=== PATIENT | female | born 1960 | race Caucasian/White ===

== ENCOUNTER 2019-07-08 15:46 | Inpatient (IN) ==
[2019-07-08] MEDS ORDERED: NYSTATIN POWDER 15GM BTL EXT PRN (22:11)
[2019-07-08] MEDS ORDERED: ONDANSETRON INJ 2 MG/ML 2 ML VIAL IV PRN (22:30)
[2019-07-08] MEDS ORDERED: ACETAMINOPHEN 325 MG TAB PO PRN (22:30)
[2019-07-08] MEDS ORDERED: POLYETHYLENE (MIRALAX) 17 GM PACK PO PRN (22:30)
--- NOTE | 2019-07-08 22:33 | History & Physical Report ---
Date of Service July 08, 2019 Assessment & Plan (1) ESRD (end stage renal disease): (2) DM2 (diabetes mellitus, type 2): (3) Seizure disorder: (4) HTN (hypertension): (5) Respiratory failure: (6) GERD (gastroesophageal reflux disease): (7) AMS (altered mental status): 58-year-old female with history of seizure, DM 2, CKD on dialysis, hypertension, coronary artery disease, respiratory failure, history of DVTs and bilateral BKA's, GERD, peptic ulcer disease presents with altered mental status from outside hospital. Altered mental status History of seizures Concern for possible seizure and postictal state versus stroke versus normal pressure hydrocephalus Afebrile, no WBC elevation Labs and diagnostic work-up at outside hospital on 07/08/19 at 13:55 CT at OSH: 07/08/19 overall appearance of ventricles and periventricular white matter raises question of normal pressure hydrocephalus however may also be seen in chronic microangiopathic disease Chest x-ray at OSH: 07/08/19 chronic increased interstitial markings, no acute abnormality EKG: Normal sinus rhythm 77, QTc [address] or T wave changes Troponin 0.02 Electrolytes within normal limits, BUN/creatinine 11/2.7 Continue home Leviteracetam 1000mg BID Hold home oxycodoneacetaminophen, meclizine, levocetirizine, gabapentin and fluoxetine in the setting of altered mental status Neurology consulted End-stage renal disease on hemodialysis BUN/creatinine 11/2.7 status post 2 hours of hemodialysis today Electrolyte is within normal limits Appears euvolemic on exam On hemodialysis Monday Continue sucroferric oxyhydroxide Continue to monitor BMP Nephrology consulted Respiratory failure Unsure of diagnosis none stated on records from outside hospital On 2 L O2 DM2 Check a.m. A1c Hold home Humalog and started on sliding scale insulin NovoLog Hypertension/CAD/history of DVT Continue home amlodipine, metoprolol, atorvastatin and warfarin INR 1.7 on 07/03 - check AM INR GERD/history of peptic ulcer disease Continue home PPI, and metoclopramide On Zofran as needed for nausea/vomiting Hx of breast cancer L mastectomy Continue home anastrazole FEN/GI: N.p.o. given altered mental status DVT prophylaxis: Warfarin Disposition MedSurg with telemetry Code: Full per prior records unable to verify due to mental status History of Present Illness Chief Complaint: Altered mental status Primary Care Provider: NO PCP 58-year-old female with history of seizure, DM 2, CKD on dialysis, hypertension, coronary artery disease, respiratory failure, history of DVTs and bilateral BKA's, GERD, peptic ulcer disease presents with altered mental status from outside hospital. Per records reviewed, had reported that patient was not her usual self this morning. While at dialysis 2 hours into her 4-hour session she was noted to be altered and transferred to the ED. There was questionable concern for seizure and possible postictal stage. Outside hospital had spoke to Dr. Mcnulty who is her heater operator helper and patient was transferred to [facility]. When evaluated this evening patient responds to her name but is unable to state name, or date of . When asked about place and time she stares into space. She is however following some commands and I was able to do her portion of neuro exam with her. She also answers no to pain and review of system elements. She denied any fever, chills, headache, lightheadedness, chest pain, shortness of breath, abdominal pain, diarrhea, constipation, hematochezia, melena, hematuria, dysuria, increased urinary frequency. She reports yes to producing some urine There is no family member at this time. Phone number listed was contacted however no response was obtained. Allergies Allergy/AdvReac Type Severity Reaction Status Date / Time Aminoglycosides Allergy Unknown Verified 07/08/19 22:17 ciprofloxacin Allergy Unknown Verified 07/08/19 22:17 doxycycline Allergy Unknown Verified 07/08/19 22:17 ertapenem Allergy Unknown Verified 07/08/19 22:17 gentamicin Allergy Unknown Verified 07/08/19 22:17 morphine Allergy Unknown Verified 07/08/19 22:17 quinacrine Allergy Unknown Verified 07/08/19 22:17 Quinolones Allergy Unknown Verified 07/08/19 22:17 Tetracyclines Allergy Unknown Verified 07/08/19 22:17 tramadol Allergy Unknown Verified 07/08/19 22:17 vancomycin AdvReac Unknown Unknown Verified 07/08/19 22:17 codeine AdvReac Unknown Verified 07/08/19 22:17 Home Medications Home Medications Medication Instructions Recorded Confirmed Type B complex 36-gajma-O-biot-zinc 1 tab PO DAILY 07/08/19 07/08/19 History B complex 24-gnbsc-G-biot-zinc 1 tab PO DAILY 07/08/19 07/08/19 History [Dialyvite] amlodipine 5 mg PO DAILY 07/08/19 07/08/19 History anastrozole 1 mg PO DAILY 07/08/19 07/08/19 History atorvastatin [Lipitor] 20 mg PO HS 07/08/19 07/08/19 History dexlansoprazole [Dexilant] 60 mg PO DAILY 07/08/19 07/08/19 History fluoxetine 20 mg PO DAILY 07/08/19 07/08/19 History gabapentin 600 mg PO TID 07/08/19 07/08/19 History insulin lispro [Humalog U-100 See Rx Instructions .ROUTE .COMPLEX 07/08/19 07/08/19 History Insulin] levetiracetam 1,000 mg PO BID 07/08/19 07/08/19 History levocetirizine 5 mg PO HS 07/08/19 07/08/19 History meclizine 12.5 mg PO Q6 07/08/19 07/08/19 History metoclopramide HCl 5 mg PO TID 07/08/19 07/08/19 History metoprolol tartrate 50 mg PO BID 07/08/19 07/08/19 History ondansetron 4 mg PO QID PRN 07/08/19 07/08/19 History oxycodone-acetaminophen 10 - 325 tab PO Q6 07/08/19 07/08/19 History sucroferric oxyhydroxide [Velphoro] 500 mg PO DAILYBD 07/08/19 07/08/19 History warfarin [Coumadin] 10 mg PO DAILY 07/08/19 07/08/19 History Past Med/Surg History Medical History (Updated 07/09/19 @ 18:20 by Addison Grajeda MD) AMS (altered mental status) DM2 (diabetes mellitus, type 2) DVT (deep venous thrombosis) ESRD (end stage renal disease) GERD (gastroesophageal reflux disease) HTN (hypertension) Seizure disorder Surgical History (Updated 07/09/19 @ 18:07 by Addison Grajeda MD) S/P bilateral above knee amputation Social History Preferred Language: Hungarian Communication Ability: Impaired 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 However does respond to name and stays awake during interaction; CN 2-12 intact however unable to perform remaining neuro exam due to AMS and inability to follow commands Pulm: Occasional rhonchi appreciated, equal breath sounds bilaterally, pt actively coughing during exam, on 2L CV: RRR, no m/r/g Abdomen:+BS, no TTP in all quadrants, obese abdomen LE: bilateral BKAs, stumps warm to touch Results & Data Vital Signs (Past 12 Hours) Vital Signs Temp Pulse Pulse Pulse Resp BP Pulse Ox 07/08/19 22:31 72 07/08/19 21:28 36.7 C 80 79 18 189/93 H 96 Code Status & VTE Plan Code Status Full per record reviewed - unable to clarify due to pt's mental status VTE Prophylaxis Plan VTE Prophylaxis will be ordered: Yes Supervising Physician Co-Signing Physician Notes Attending addendum: I have physically seen this patient, have supervised the medical residents activities, and agree with the H&P unless as otherwise noted. Assessment and Plan: Altered mental status- Reason for transfer was concern regarding differential between seizure and postictal state versus stroke versus NPH- Based on changes noted on CT. Continue Keppra 1000 mg p.o. twice daily, may do one-to-one conversion for IV. Holding medications that can potentially affect responsive state as noted. Will need EEG and MRI of brain. Consult neurology. ESRD on HD- Follow serial laboratories. HD on Monday, Monday and Monday. Continue current regimen of medications. Consult nephrology. Remainder of orders and notations as noted. Resident Activity Tracking Resident Involvement: Resident Care Provided Care Provided: Adult Hospital Medicine
[2019-07-08] MEDS ORDERED: levETIRAcetam 500 MG TAB PO SCH (23:00)
[2019-07-08] MEDS ORDERED: LACTATED RINGER'S 1,000 ML IV SCH (23:15)
[2019-07-08] MEDS ORDERED: HydrALAZINE HCL 20 MG/ML VIAL IV PRN (23:25)
[2019-07-08] MEDS ORDERED: GLUCOSE 40% GEL 15 GM TUBE PO PRN (23:30)
[2019-07-08] MEDS ORDERED: CARBOHYDRATES FOR HYPOGLYCEMIA PO PRN (23:30)
[2019-07-08] MEDS ORDERED: GLUCAGON FOR INJ 1 MG VIAL SQ PRN (23:30)
[2019-07-08] MEDS ORDERED: DEXTROSE 50% 50 ML SYRINGE IV PRN (23:30)
[2019-07-08] MEDS ORDERED: GLUCOSE 10 TABS/TUBE PO PRN (23:30)
[2019-07-08] MEDS: METOPROLOL TARTRATE 50 MG TAB PO SCH (23:34)
[2019-07-08] MEDS ORDERED: PATIENT'S HEIGHT AND/OR WEIGHT NEEDED SCH (23:45)
[2019-07-08] MEDS: INSULIN ASPART 100 UNITS/ML 3 ML PEN SC SCH (23:47)
[2019-07-09] MEDS: VELPHORO~ORDER AWAITING ACTION SCH ×3 (00:10→17:06)
[2019-07-09] MEDS ORDERED: Nursing to Pharmacy Communication ONE (00:11)
[2019-07-09] MEDS: INSULIN ASPART 100 UNITS/ML 3 ML PEN SC SCH ×4 (06:18→20:29)
[2019-07-09 06:29] LABS: Basophils # (auto) 0.07 K/uL (0-0.2); Basophils % (auto) 0.6 %; Eosinophils # (auto) 0.22 K/uL (0-0.5); Hematocrit (blood only) 35.7 % (37-47); Hemoglobin 11.2 g/dL (12.0-16.0); Immature Granulocytes # (auto) 0.02 K/uL (0.00-0.02); Immature Granulocytes % (auto) 0.2 %; Lymphocytes # (auto) 1.61 K/uL (1.2-3.4); Lymphocytes % (auto) 14.8 %; Mean Corpuscular Hemoglobin 28.4 pg (25-34); Mean Corpuscular Volume 90.6 fL (80-100); Mean Platelet Volume 9.1 fL (7.4-10.4); Monocytes # (auto) 1.01 K/uL (0.11-0.59); Monocytes % (auto) 9.3 %; Neutrophils # (auto) 7.96 K/uL (1.4-6.5); Neutrophils % (auto) 73.1 %; Platelet Count 279 K/uL (130-400); RDW Coefficient of Variation 15.2 % (11.5-14.5); RDW Standard Deviation 50.3 fL (36.4-46.3); Red Blood Count 3.94 M/uL (4.2-5.4); White Blood Count 10.89 K/uL (4.8-10.8)
[2019-07-09 06:31] LABS: Mean Corpuscular Hgb Conc 31.4 g/dL (32-36)
[2019-07-09 06:49] LABS: Alanine Aminotransferase 19 U/L (12-78); Albumin Level 2.1 gm/dl (3.4-5.0); Aspartate Aminotransferase 36 U/L (15-37); BUN Creatinine Ratio 4.4 (10-20); Blood Urea Nitrogen 14 mg/dl (7-18); Carbon Dioxide 33 mmol/L (21-32); Chloride 100 mmol/L (98-107); Cholesterol 176 mg/dl (0-200); Creatinine Clr Calc Pharmacy 11.3 ml/min; Est GFR (African American) 17.7; Est GFR (Non-African American) 15.3; Glucose 93 mg/dl (70-99); Magnesium 1.6 mg/dl (1.8-2.4); Potassium 3.7 mmol/L (3.5-5.1); Sodium 138 mmol/L (136-145)
[2019-07-09 06:50] LABS: INR 3.5 (0.9-1.1); Partial Thromboplastin Ratio 1.9; Prothrombin Time 32.7 Seconds (9.0-12.0)
[2019-07-09 06:52] LABS: Albumin Globulin Ratio 0.6 (0.9-2); Alkaline Phosphatase 130 U/L (45-117); Bilirubin,Total 0.4 mg/dl (0.2-1); Chol HDL Ratio 4; Globulin 3.5 gm/dl (2.5-4.0); HDL Cholesterol 45 mg/dl; LDL Cholesterol Calculated 108 mg/dl; Phosphorus 3.5 mg/dl (2.5-4.9); Total Protein 5.6 gm/dl (6.4-8.2); Triglycerides 113 mg/dl (0-150); Troponin I < 0.015 ng/ml (0-0.045); VLDL Cholesterol 23 mg/dl
[2019-07-09 07:02] LABS: Partial Thromboplastin Time 50.6 Seconds (21.0-31.0)
[2019-07-09] MEDS: MAGNESIUM SULFATE / D5W 1 GM/100 ML BAG IV SCH ×4 (07:16→13:23)
--- NOTE | 2019-07-09 07:38 | Magnetic Resonance Report ---
MR brain wo con CLINICAL HISTORY: 58 years-old Female presenting with AMS, concern for possible NPH on CT. TECHNIQUE: Multisequence, multiplanar MR imaging of the brain was performed without the use of intrav enous contrast. IV contrast: None. COMPARISON: None. FINDINGS: Localizer images: Unremarkable. Bone marrow signal intensity within the calvarium within normal limits. Normal midline sagittal structures. Mild proportional ventricular and sulcal prominence, likely age-r elated parenchymal volume loss with the exception of the vertex, where there is relative mild gyral c rowding. Upper bowing of the corpus callosum. The callosal angle measures 68 degrees, which is abnorm ally acute. No mass effect or midline shift. No restricted diffusion or hemorrhage. Periventricular a nd subcortical white matter T2/FLAIR hyperintensity, nonspecific but likely indicative of chronic sma ll vessel ischemic change. No extra-axial fluid collection. T2 skull base flow voids preserved. Mastoid air cell fluid. Mild muc osal thickening in paranasal sinuses. IMPRESSION: 1. Findings mildly suggestive of normal pressure hydrocephalus. 2. Chronic small vessel ischemic change. The report will be called/faxed according to standard departmental protocol. Electronically signed by: Mike Huynh M.D. 07/09/2019 7:37 AM
[2019-07-09 07:53] LABS: Estimated Average Glucose 117 mg/dl; Hemoglobin A1C 5.7 % (4.5-5.6)
[2019-07-09] MEDS: METOPROLOL TARTRATE 50 MG TAB PO SCH ×2 (10:09→20:32)
[2019-07-09] MEDS: AMLODIPINE BESYLATE 5 MG TAB PO SCH (10:09)
[2019-07-09] MEDS: ANASTROZOLE 1 MG TAB PO SCH (10:10)
[2019-07-09] MEDS: METOCLOPRAMIDE HCL 5 MG TABLET PO SCH ×3 (10:10→20:33)
[2019-07-09] MEDS: PANTOprazole 40 MG TAB PO SCH (10:10)
--- NOTE | 2019-07-09 11:49 | Nephrology Consultation ---
Date of Consultation July 09, 2019 Assessment & Plan (1) ESRD (end stage renal disease): End-stage renal disease on hemodialysis Monday, Monday, Monday via right upper extremity AV fistula. Admitted with change in mental status possibly secondary to normal pressure hydrocephalus. Had only 2 hours dialysis yesterday however currently her electrolyte acceptable, volume status okay although blood pressure running high. --will plan for dialysis tomorrow as her regular schedule --avoid IV fluid --if blood pressure remained elevated, suggest increasing amlodipine to 10 mg daily --dose medications for GFR less than 10 Will follow Thank you for allowing me to participate in your patient's care. It was a pleasure to see Joslyn (2) DM2 (diabetes mellitus, type 2): (3) HTN (hypertension): (4) Hx of BKA: (5) AMS (altered mental status): History of Present Illness Reason for Consultation: End-stage renal disease on hemodialysis. Attending Physician: Juancarlos Méndez, History of Present Illness Joslyn Has end-stage renal disease, has been on hemodialysis Monday, Monday, Monday for at least several years now. She dialyses at [facility]. 2 hours into her dialysis session yesterday she was found to have change in mental status and sent to [facility]. MRI brain was suggestive of normal pressure hydrocephalus. Her blood pressure has been running high but electrolyte and volume status acceptable. She continues to seem to have some confusion and was not able to give any detailed information. Past medical history significant for hypertension, diabetes and questionable seizure disorder. She has history of bilateral BKA due to DVT. Allergies Allergy/AdvReac Type Severity Reaction Status Date / Time Aminoglycosides Allergy Unknown Verified 07/08/19 22:17 ciprofloxacin Allergy Unknown Verified 07/08/19 22:17 doxycycline Allergy Unknown Verified 07/08/19 22:17 ertapenem Allergy Unknown Verified 07/08/19 22:17 gentamicin Allergy Unknown Verified 07/08/19 22:17 morphine Allergy Unknown Verified 07/08/19 22:17 quinacrine Allergy Unknown Verified 07/08/19 22:17 Quinolones Allergy Unknown Verified 07/08/19 22:17 Tetracyclines Allergy Unknown Verified 07/08/19 22:17 tramadol Allergy Unknown Verified 07/08/19 22:17 vancomycin AdvReac Unknown Unknown Verified 07/08/19 22:17 codeine AdvReac Unknown Verified 07/08/19 22:17 Home Medications Home Medications Medication Instructions Recorded Confirmed Type B complex 01-qptwf-H-biot-zinc 1 tab PO DAILY 07/08/19 07/08/19 History B complex 79-zdvzt-G-biot-zinc 1 tab PO DAILY 07/08/19 07/08/19 History [Dialyvite] amlodipine 5 mg PO DAILY 07/08/19 07/08/19 History anastrozole 1 mg PO DAILY 07/08/19 07/08/19 History atorvastatin [Lipitor] 20 mg PO HS 07/08/19 07/08/19 History dexlansoprazole [Dexilant] 60 mg PO DAILY 07/08/19 07/08/19 History fluoxetine 20 mg PO DAILY 07/08/19 07/08/19 History gabapentin 600 mg PO TID 07/08/19 07/08/19 History insulin lispro [Humalog U-100 See Rx Instructions .ROUTE .COMPLEX 07/08/19 07/08/19 History Insulin] levetiracetam 1,000 mg PO BID 07/08/19 07/08/19 History levocetirizine 5 mg PO HS 07/08/19 07/08/19 History meclizine 12.5 mg PO Q6 07/08/19 07/08/19 History metoclopramide HCl 5 mg PO TID 07/08/19 07/08/19 History metoprolol tartrate 50 mg PO BID 07/08/19 07/08/19 History ondansetron 4 mg PO QID PRN 07/08/19 07/08/19 History oxycodone-acetaminophen 10 - 325 tab PO Q6 07/08/19 07/08/19 History sucroferric oxyhydroxide [Velphoro] 500 mg PO DAILYBD 07/08/19 07/08/19 History warfarin [Coumadin] 10 mg PO DAILY 07/08/19 07/08/19 History Patient History Medical History (Updated 07/08/19 @ 22:46 by Quiana Lockhart MD) AMS (altered mental status) Social History Preferred Language: Thai Communication Ability: Effective 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 Beliefs That Will Affect Care: None Current Living Situation: Spouse Current Living Situation Comment: home with spouse per EMT Smoking Status: Unknown if ever smoked Review of Systems Review of Systems: Unobtainable due to cognitive status Physical Exam Constitutional: WD/WN, vitals as above + altered mental status; no acute distress Eyes: PERRL, conjunctivae normal, anicteric sclerae ENMT: external ear and nose normal, oropharynx normal Ears: no hearing impairment Neck: trachea midline Respiratory: normal respiratory effort, lungs clear to auscultation no cough Auscultation: no crackles, no rales and no wheezes Cardiovascular: RRR, no murmur, no edema Gastrointestinal (Abdomen): normal bowel sounds, soft, nontender, no hepatosplenomegaly Percussion/Palpation: abdomen nontender, no guarding and abdomen not rigid Musculoskeletal: Extremities: extremities normal to inspection Gait: normal gait Skin: no rashes, warm and dry Neurologic: moves all extremities, awake and + confused Psychiatric: A+Ox3, euthymic affect Results & Data Vital Signs (Past 12 Hours) Vital Signs Temp Pulse Pulse Pulse Resp BP Pulse Ox 07/09/19 07:56 79 07/09/19 07:35 36.9 C 79 18 180/84 H 99 07/09/19 04:50 36.6 C 78 17 145/81 H 91 07/09/19 01:17 85 18 177/85 H 07/09/19 01:07 71 PG Care Time/CCT Total # of Minutes Spent Total Time Spent with Patient: Total time spent is greater than 50% in coordination of care (as documented) at patient's floor/unit and/or counseling patient:
--- NOTE | 2019-07-09 14:10 | Neurology Consultation ---
Date of Consultation July 09, 2019 Assessment & Plan (1) AMS (altered mental status): Joslyn Lieberman is an 58-year-old woman with past medical history of diabetes, GERD, CAD, hypertension, reported history of epilepsy and ESRD on hemodialysis Monday who presents as a transfer from [facility] for altered mental status. #Altered mental status: No clear sign of infection and has been improving after several home medications were held. Believes that her symptoms could have been due to a combination of oversedation from Keppra, gabapentin and oxycodone in light of her renal disease. She may also have a component of dialysis di sequilibrium syndrome which can present with acute confusion during or immediately after dialysis. -Recommend decreasing her Keppra to 1000 mg every 24 hours with an extra 250 mg given after dialysis Monday -Recommend decreasing gabapentin to 300 mg daily with an extra 125 mg dose given 4 hours after dialysis (this is the renal dose for ESRD) -Recommend holding further oxycodone as it is not clear why she is even on this -Recommend starting thiamine, folate, Nephrocaps Would have nephrology when and make sure that all other medications are appropriately renally dose to prevent AMS -Her MRI and symptoms do not sound consistent with normal pressure hydrocephalus. Should she continue to have any concerns about her cognition, she can follow-up in neurology clinic in the next 1 to 2 months to have brief neuropsych testing at that time (and referral to formal neuropsych testing as an outpatient). If she does have dementia noted on exam, even if she did have NPH, would not benefit from a shunt as no studies have shown clear improvement after shunting cognitive impairment is present. -Recommend sending B12, TSH, ammonia level to complete AMS work-up If no improvement in mental status in the next 1 to 2 days, would consider getting an EEG though think it would likely just show encephalopathy -Would be helpful to get baseline mental status from family to determine how far where she is from her baseline -Delirium precautions, lights on during the day, lights off in the evening, frequent reorientation, bed up during the day and regular schedule with meals and snacks, avoid opiates/benzos/antipsychotics We will continue to follow. Please call or text with any questions. (2) Seizure disorder: (3) ESRD (end stage renal disease): History of Present Illness Attending Physician: Juancarlos Méndez, DO History of Present Illness Joslyn Lieberman is an 58-year-old woman with past medical history of diabetes, GERD, CAD, hypertension, reported history of epilepsy and ESRD on hemodialysis Monday who presents as a transfer from [facility] for altered mental status. Per report, patient was in her usual health until the morning of 07/08/2019 when her noticed that she is a little bit more confused than usual. She went to her normal dialysis session which was terminated early due to altered mental status and confusion. She went to the outside hospital, where CT of the head showed generalized atrophy with enlarged ventricles concerning for possible normal pressure hydrocephalus, as well as small vessel ischemic disease. On arrival to [facility], her lab work was notable for white count 10.89, hemoglobin 11.2, platelets 279, sodium 138, potassium 3.7, CO2 elevated mildly at 33, creatinine 3.15, glucose 93, INR is elevated at 3.5, A1c 5.7, mildly low calcium at 8.0, hypomagnesemia 1.6, phosphorus 3.5, mildly elevated alkaline phosphatase of 130, LDL 108. MRI of the brain showed generalized atrophy with moderate to severe small vessel ischemic disease and ex vacuo dilation per my read. Medications were notable for being on Keppra 1000 mg twice daily and gabapentin 600 mg 3 times daily. She is also taking oxycodone 10 mg at home, as well as multiple other medications that could potentially cause altered mental status (levocetirizine, meclizine, metoclopramide). On evaluation this afternoon, her mental status is reportedly much improved after several of her home medications were held. She is able to answer questions after a pause, but does not know why she is in the hospital or what happened immediately before. She was able to tell me that she smokes but was not able to elaborate how much she does smoke. Denied any alcohol or illicits. Allergies Allergy/AdvReac Type Severity Reaction Status Date / Time Aminoglycosides Allergy Unknown Verified 07/08/19 22:17 ciprofloxacin Allergy Unknown Verified 07/08/19 22:17 doxycycline Allergy Unknown Verified 07/08/19 22:17 ertapenem Allergy Unknown Verified 07/08/19 22:17 gentamicin Allergy Unknown Verified 07/08/19 22:17 morphine Allergy Unknown Verified 07/08/19 22:17 quinacrine Allergy Unknown Verified 07/08/19 22:17 Quinolones Allergy Unknown Verified 07/08/19 22:17 Tetracyclines Allergy Unknown Verified 07/08/19 22:17 tramadol Allergy Unknown Verified 07/08/19 22:17 vancomycin AdvReac Unknown Unknown Verified 07/08/19 22:17 codeine AdvReac Unknown Verified 07/08/19 22:17 Home Medications Home Medications Medication Instructions Recorded Confirmed Type B complex 90-gokbn-R-biot-zinc 1 tab PO DAILY 07/08/19 07/08/19 History B complex 55-cscjz-L-biot-zinc 1 tab PO DAILY 07/08/19 07/08/19 History [Dialyvite] amlodipine 5 mg PO DAILY 07/08/19 07/08/19 History anastrozole 1 mg PO DAILY 07/08/19 07/08/19 History atorvastatin [Lipitor] 20 mg PO HS 07/08/19 07/08/19 History dexlansoprazole [Dexilant] 60 mg PO DAILY 07/08/19 07/08/19 History fluoxetine 20 mg PO DAILY 07/08/19 07/08/19 History gabapentin 600 mg PO TID 07/08/19 07/08/19 History insulin lispro [Humalog U-100 See Rx Instructions .ROUTE .COMPLEX 07/08/19 07/08/19 History Insulin] levetiracetam 1,000 mg PO BID 07/08/19 07/08/19 History levocetirizine 5 mg PO HS 07/08/19 07/08/19 History meclizine 12.5 mg PO Q6 07/08/19 07/08/19 History metoclopramide HCl 5 mg PO TID 07/08/19 07/08/19 History metoprolol tartrate 50 mg PO BID 07/08/19 07/08/19 History ondansetron 4 mg PO QID PRN 07/08/19 07/08/19 History oxycodone-acetaminophen 10 - 325 tab PO Q6 07/08/19 07/08/19 History sucroferric oxyhydroxide [Velphoro] 500 mg PO DAILYBD 07/08/19 07/08/19 History warfarin [Coumadin] 10 mg PO DAILY 07/08/19 07/08/19 History Patient History Medical History AMS (altered mental status) Social History Preferred Language: Norwegian Communication Ability: Impaired 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 HEENT: No conjunctival injection, no rhinorrhea. CV: RRR, no peripheral edema PULM: Nonlabored respirations on 2L NC. Neuro Exam: MS: Awake and Alert. Oriented to self and being in the hospital but not date or name of hospital or situation. Speech fluent though extremely sparse. Able to repeat and comprehend though does not consistently follow directions, naming limited due to mental status. Unable to assess cognition or memory given altered mental status. Inattentive. No clear neglect. CN: Unable to perform funduscopic exam as patient kept closing her eyes. PERRLA OU. EOMI on passive head tilting, patient unable to move eyes on her own via direction. Facial sensation intact to LT. Facial muscles full and symmetric. Hearing intact to conversation. Uvula midline with symmetric palatal elevation. Shoulder shrug normal. Tongue midline. MOTOR: Normal bulk and tone. No pronator drift. Bilateral upper extremities antigravity with slow drift to bed. Has bilateral BKA's REFLEXES: 1+ at biceps, triceps, brachioradialis, unable to assess patella and Achilles secondary to bilateral BKA's. SENSORY: Intact to LT without extinction to double simultaneous stimuli. Vibration intact throughout. COORDINATION: Unable to assess fully as she is not able to completely follow commands GAIT: Unable to assess secondary to bilateral BKA's. Results & Data Vital Signs (Past 12 Hours) Vital Signs Temp Pulse Pulse Pulse Resp BP Pulse Ox 07/09/19 12:00 36.5 C 63 20 120/74 92 07/09/19 07:56 79 07/09/19 07:35 36.9 C 79 18 180/84 H 99 07/09/19 04:50 36.6 C 78 17 145/81 H 91 Laboratory Results Abnormal lab results 11/25/19 11/26/19 11/26/19 Range/Units 23:46 06:16 06:16 WBC (4.8-10.8) K/uL RBC (4.2-5.4) M/uL Hgb (12.0-16.0) g/dL Hct (37-47) % MCHC (32-36) g/dL RDW Std Deviation (36.4-46.3) fL RDW Coeff of Shaq (11.5-14.5) % Neut # (Auto) (1.4-6.5) K/uL Villalba # (Auto) (0.11-0.59) K/uL PT 32.7 H (9.0-12.0) Seconds INR 3.5 H (0.9-1.1) APTT 50.6 H* (21.0-31.0) Seconds Carbon Dioxide (21-32) mmol/L Creatinine (0.6-1.2) mg/dl BUN/Creatinine Ratio (10-20) POC Glucose 104 H (70-99) Hemoglobin A1c 5.7 H (4.5-5.6) % Calcium (8.5-10.1) mg/dl Magnesium (1.8-2.4) mg/dl Alkaline Phosphatase (45-117) U/L Total Protein (6.4-8.2) gm/dl Albumin (3.4-5.0) gm/dl Albumin/Globulin Ratio (0.9-2) 07/09/19 07/09/19 Range/Units 06:16 06:16 WBC 10.89 H (4.8-10.8) K/uL RBC 3.94 L (4.2-5.4) M/uL Hgb 11.2 L (12.0-16.0) g/dL Hct 35.7 L (37-47) % MCHC 31.4 L (32-36) g/dL RDW Std Deviation 50.3 H (36.4-46.3) fL RDW Coeff of Shaq 15.2 H (11.5-14.5) % Neut # (Auto) 7.96 H (1.4-6.5) K/uL Villalba # (Auto) 1.01 H (0.11-0.59) K/uL PT (9.0-12.0) Seconds INR (0.9-1.1) APTT (21.0-31.0) Seconds Carbon Dioxide 33 H (21-32) mmol/L Creatinine 3.15 H (0.6-1.2) mg/dl BUN/Creatinine Ratio 4.4 L (10-20) POC Glucose (70-99) Hemoglobin A1c (4.5-5.6) % Calcium 8.0 L (8.5-10.1) mg/dl Magnesium 1.6 L (1.8-2.4) mg/dl Alkaline Phosphatase 130 H (45-117) U/L Total Protein 5.6 L (6.4-8.2) gm/dl Albumin 2.1 L (3.4-5.0) gm/dl Albumin/Globulin Ratio 0.6 L (0.9-2) PG Care Time/CCT Total # of Minutes Spent Total Time Spent with Patient: Total time spent is greater than 50% in coordination of care (as documented) at patient's floor/unit and/or counseling patient:
--- NOTE | 2019-07-09 14:28 | Hospitalist Progress Note ---
Date of Service July 09, 2019 Assessment & Plan (1) AMS (altered mental status): improved today d/w Dr. Dallas, most logical explanation would be inappropriate dosing of Keppra and Gabapentin will decrease Keppra to 1000mg daily with extra 250mg after HD will decrease Gabapentin to 300mg qAM with 125mg after HD sessions will hold Oxycodone no evidence of stroke on MRI, neurology does not feel the imaging represents NPH will monitor mental status with the medication adjustments above (2) Respiratory failure: acute hypoxia, improving today could be due to mild volume overload but also some respiratory suppression with accidental overdosing of Keppra, Gabapentin continue supplemental oxygen, titrate as allowed (3) HTN (hypertension): BP elevated continue Norvasc, metoprolol (4) Seizure disorder: as mentioned above will reduce Keppra to 1000mg daily with 250mg after HD (5) DM2 (diabetes mellitus, type 2): diabetic diet Novolog SS monitor for hypoglycemia (6) ESRD (end stage renal disease): nephrology consulted for HD orders electrolytes stable (7) GERD (gastroesophageal reflux disease): continue PPI Subjective patient more alert today compared to yesterday responds to simple questions but she is not oriented cannot tell me the year, month or where she is she has no recollection of the events yesterday that brought her to hospital denies pain today she is hungry, would like to eat discussed with Dr. Dallas, appreciate her input, simple answer would be that medications not renally dosed for HD she does not feel that the patient has NPH reviewed labs, WBC 10k, Hb 11, INR 3.5, Cr is 3.1 and electrolytes stable Mg low at 1.6 Review of Systems Review of Systems: Unobtainable due to cognitive status Physical Exam Constitutional: WD/WN, vitals as above + overweight Eyes: PERRL, conjunctivae normal, anicteric sclerae ENMT: external ear and nose normal, oropharynx normal Neck: trachea midline, no thyromegaly Respiratory: normal respiratory effort, lungs clear to auscultation Auscultation: + diminished lung sounds (bases) Cardiovascular: RRR, no murmur, no edema Gastrointestinal (Abdomen): normal bowel sounds, soft, nontender, no hepatosplenomegaly Musculoskeletal: no cyanosis or clubbing, extremities motor strength 5/5 (bilateral AKA) Skin: no rashes, warm and dry + wound (left stump posteriorly) Neurologic: PERRL, EOMI, accommodation nl, no face palsy, no dysarthria Psychiatric: Orientation: alert, oriented to person and cooperative; + not oriented to place and + not oriented to time Eye Contact: good eye contact Results & Data Vital Signs (Past 12 Hours) Vital Signs Temp Pulse Pulse Pulse Resp BP Pulse Ox 07/09/19 12:00 36.5 C 63 20 120/74 92 07/09/19 07:56 79 07/09/19 07:35 36.9 C 79 18 180/84 H 99 07/09/19 04:50 36.6 C 78 17 145/81 H 91 Laboratory Results Laboratory Results - last 24 hr 07/08/19 07/08/19 07/09/19 22:21 23:46 06:16 WBC RBC Hgb Hct MCV MCH MCHC RDW Std Deviation RDW Coeff of Shaq Plt Count MPV Immature Gran % (Auto) Neut % (Auto) Lymph % (Auto) Angelina % (Auto) Eos % (Auto) Baso % (Auto) Immature Gran # (Auto) Neut # (Auto) Lymph # (Auto) Angelina # (Auto) Eos # (Auto) Baso # (Auto) PT 32.7 H INR 3.5 H APTT 50.6 H* PTT Ratio 1.9 Sodium Potassium Chloride Carbon Dioxide Anion Gap BUN Creatinine Est Cr Clr Drug Dosing Est GFR ( Amer) Est GFR (Non-Af Amer) BUN/Creatinine Ratio Glucose POC Glucose 104 H Estimat Average Glucose Hemoglobin A1c Calcium Phosphorus Magnesium Total Bilirubin AST ALT Alkaline Phosphatase Troponin I Total Protein Albumin Globulin Albumin/Globulin Ratio Triglycerides Cholesterol LDL Cholesterol, Calc VLDL Cholesterol, Calc HDL Cholesterol Cholesterol/HDL Ratio Nasal Screen MRSA (PCR) Negative 07/09/19 07/09/19 07/09/19 06:16 06:16 06:16 WBC 10.89 H RBC 3.94 L Hgb 11.2 L Hct 35.7 L MCV 90.6 MCH 28.4 MCHC 31.4 L RDW Std Deviation 50.3 H RDW Coeff of Shaq 15.2 H Plt Count 279 MPV 9.1 Immature Gran % (Auto) 0.2 Neut % (Auto) 73.1 Lymph % (Auto) 14.8 Angelina % (Auto) 9.3 Eos % (Auto) 2.0 Baso % (Auto) 0.6 Immature Gran # (Auto) 0.02 Neut # (Auto) 7.96 H Lymph # (Auto) 1.61 Angelina # (Auto) 1.01 H Eos # (Auto) 0.22 Baso # (Auto) 0.07 PT INR APTT PTT Ratio Sodium 138 Potassium 3.7 Chloride 100 Carbon Dioxide 33 H Anion Gap 6.0 BUN 14 Creatinine 3.15 H Est Cr Clr Drug Dosing 11.3 Est GFR ( Amer) 17.7 Est GFR (Non-Af Amer) 15.3 BUN/Creatinine Ratio 4.4 L Glucose 93 POC Glucose Estimat Average Glucose 117 Hemoglobin A1c 5.7 H Calcium 8.0 L Phosphorus 3.5 Magnesium 1.6 L Total Bilirubin 0.4 AST 36 ALT 19 Alkaline Phosphatase 130 H Troponin I < 0.015 Total Protein 5.6 L Albumin 2.1 L Globulin 3.5 Albumin/Globulin Ratio 0.6 L Triglycerides 113 Cholesterol 176 LDL Cholesterol, Calc 108 VLDL Cholesterol, Calc 23 HDL Cholesterol 45 Cholesterol/HDL Ratio 4 Nasal Screen MRSA (PCR) 07/09/19 07/09/19 07/09/19 06:16 07:46 11:57 WBC RBC Hgb Hct MCV MCH MCHC RDW Std Deviation RDW Coeff of Shaq Plt Count MPV Immature Gran % (Auto) Neut % (Auto) Lymph % (Auto) Angelina % (Auto) Eos % (Auto) Baso % (Auto) Immature Gran # (Auto) Neut # (Auto) Lymph # (Auto) Angelina # (Auto) Eos # (Auto) Baso # (Auto) PT INR APTT PTT Ratio Sodium Potassium Chloride Carbon Dioxide Anion Gap BUN Creatinine Est Cr Clr Drug Dosing Est GFR ( Amer) Est GFR (Non-Af Amer) BUN/Creatinine Ratio Glucose POC Glucose 85 85 93 Estimat Average Glucose Hemoglobin A1c Calcium Phosphorus Magnesium Total Bilirubin AST ALT Alkaline Phosphatase Troponin I Total Protein Albumin Globulin Albumin/Globulin Ratio Triglycerides Cholesterol LDL Cholesterol, Calc VLDL Cholesterol, Calc HDL Cholesterol Cholesterol/HDL Ratio Nasal Screen MRSA (PCR) Medications Administered Current Inpatient Medications Acetaminophen (Tylenol) 650 mg PO Q4H PRN PRN Reason: Pain or Fever Stop: 08/07/19 22:29 Amlodipine Besylate (Norvasc) 5 mg PO DAILY [facility] Stop: 08/08/19 08:59 Last Admin: 07/09/19 10:09 Dose: 5 mg Documented by: Anastrozole (Arimidex) 1 mg PO DAILY [facility] Stop: 08/08/19 08:59 Last Admin: 07/09/19 10:10 Dose: 1 mg Documented by: Atorvastatin Calcium (Lipitor) 20 mg PO HS [facility] Stop: 08/08/19 20:59 Dextrose (Dextrose 50%) 25 - 50 ml IV UD PRN; Protocol PRN Reason: Hypoglycemia Protocol Stop: 08/07/19 23:29 Gabapentin (Neurontin) 300 mg PO QAM [facility] Stop: 08/09/19 08:59 Glucagon (Glucagen) 1 mg SQ UD PRN; Protocol PRN Reason: Hypoglycemia Protocol Stop: 08/07/19 23:29 Glucose (Glucose 40%) 15 - 30 gm PO UD PRN; Protocol PRN Reason: Hypoglycemia Protocol Stop: 08/07/19 23:29 Glucose (Dex4 Glucose) 4 - 8 tabs PO UD PRN; Protocol PRN Reason: Hypoglycemia Protocol Stop: 08/07/19 23:29 Hydralazine HCl (Hydralazine Hcl) 10 mg IV Q6H PRN PRN Reason: SBP > 180, DBP > 110 Stop: 08/07/19 23:29 Last Admin: 07/08/19 23:33 Dose: 10 mg Documented by: Insulin Aspart (Novolog Flexpen) 0 units SC ACHS [facility] Stop: 08/08/19 16:29 Levetiracetam (Keppra) 1,000 mg PO QAM [facility] Stop: 08/09/19 08:59 Metoclopramide HCl (Reglan) 5 mg PO TID [facility] Stop: 08/08/19 08:59 Last Admin: 07/09/19 13:23 Dose: 5 mg Documented by: Metoprolol Tartrate (Lopressor) 50 mg PO BID [facility] Stop: 08/07/19 22:59 Last Admin: 07/09/19 10:09 Dose: 50 mg Documented by: Miscellaneous (Order Awaiting Action) 1 ea N/A QS [facility] Stop: 08/08/19 00:00 Last Admin: 07/09/19 08:28 Dose: Not Given Documented by: Miscellaneous (Carbohydrates For Hypoglycemia) 15 - 30 gm PO UD PRN PRN Reason: Hypoglycemia Treatment Stop: 08/07/19 23:29 Nystatin (Mycostatin) 1 appln EXT QSHIFT PRN PRN Reason: Affected Skin Folds Stop: 08/07/19 22:10 Ondansetron HCl (Zofran) 4 mg IV Q6H PRN PRN Reason: Nausea Stop: 08/07/19 22:29 Pantoprazole Sodium (Protonix) 40 mg PO DAILY [facility] Stop: 08/08/19 08:59 Last Admin: 07/09/19 10:10 Dose: 40 mg Documented by: Polyethylene Glycol (Miralax Powder Packet) 17 gm PO DAILY PRN PRN Reason: Constipation Stop: 08/07/19 22:29 Warfarin Sodium (Coumadin) 10 mg PO DAILY@1600 [facility] Stop: 08/08/19 15:59 PG Care Time/CCT Total # of Minutes Spent Total Time Spent with Patient: Total time spent is greater than 50% in coordination of care (as documented) at patient's floor/unit and/or counseling patient:
[2019-07-09] MEDS ORDERED: WARFARIN SOD 10 MG TAB PO SCH (16:00)
--- NOTE | 2019-07-09 18:11 | Cardiology Consultation ---
Date of Consultation July 09, 2019 Assessment & Plan (1) Abnormal ECG: (2) AMS (altered mental status): (3) Mitral regurgitation: ASSESSMENT/PLAN: 1. Abnormal ECG: She did not present with acute coronary syndrome. She denies any history of angina although she is a poor historian. She does not ambulate as she has bilateral AKA. Echo demonstrated normal LV systolic function and no regional wall motion abnormalities. Can repeat ECG. Otherwise, no further evaluation recommended at this time from a cardiac perspective. 2. Altered mental status: As per primary service and Neurology. 3. Mitral regurgitation: Non severe. No further follow-up recommended at this time. Would not account for any of her symptoms. 4. H&P suggests a history of CAD. MALCOLM Carlos records that were reviewed at the time of this consultation do not mention CAD. She does not recall history CAD but once again she is a very poor historian. No angina and did not present with acute coronary syndrome. No further evaluation necessary at this time. 5. Disposition: Cardiology will sign off. Please call with any other questions or concerns. Thank you for allowing me to participate in the care of your patient. Please call for any other questions or concerns. Sincerely, Cruz Grajeda M.D. History of Present Illness Reason for Consultation: ST depression on ECG Requesting Physician: Dr. Lockhart Attending Physician: Juancarlos Méndez, History of Present Illness Mrs Lieberman is a 58-year-old female with seizure disorder, type 2 diabetes, end- stage renal disease on hemodialysis via right upper extremity AV fistula, prior DVTs, bilateral AKAs, peptic ulcer disease, who was transferred from dialysis for mental status change. She is a very poor historian. Fortunately, Preston from her dialysis unit, was present at the bedside and help give some history. She was okay with him being present. He states that while at dialysis she became disoriented and confused, more than baseline. He recalls dextrose being given but with no improvement. There was possible seizure activity reported. She was then brought here for further evaluation. She herself states that she has never been diagnosed with seizure disorder however she does take medications. She denies coronary artery disease however the history and physical on presentation reports CAD without further details. She denies history of DVTs, ulcer disease, and other medical problems. She does not know what town she is in but recalls that she is in the hospital. She does not know the month and and could not recall that Reyna is later this week. She denies chest pain, shortness of breath, palpitations, syncope. She denies edema, bleeding, or other symptom. Preston believes that she is back to her baseline in regards to her mental status, stating that sometimes she does have difficulty answering such questions. Review of systems: As above and otherwise unobtainable due to patient's mental status. Family history: She denies premature CAD. Social history: She states that she smokes 2 packs cigarettes per day but cannot recall how long. She denies alcohol. She lives at home with her in [facility]. She has a daughter and a son. She reports 5 grandchildren. There was no family present at the bedside. Allergies Allergy/AdvReac Type Severity Reaction Status Date / Time Aminoglycosides Allergy Unknown Verified 07/08/19 22:17 ciprofloxacin Allergy Unknown Verified 07/08/19 22:17 doxycycline Allergy Unknown Verified 07/08/19 22:17 ertapenem Allergy Unknown Verified 07/08/19 22:17 gentamicin Allergy Unknown Verified 07/08/19 22:17 morphine Allergy Unknown Verified 07/08/19 22:17 quinacrine Allergy Unknown Verified 07/08/19 22:17 Quinolones Allergy Unknown Verified 07/08/19 22:17 Tetracyclines Allergy Unknown Verified 07/08/19 22:17 tramadol Allergy Unknown Verified 07/08/19 22:17 vancomycin AdvReac Unknown Unknown Verified 07/08/19 22:17 codeine AdvReac Unknown Verified 07/08/19 22:17 Home Medications Home Medications Medication Instructions Recorded Confirmed Type B complex 15-[id number]-[id number]-biot-zinc 1 tab PO DAILY 07/08/19 07/08/19 History B complex 64-[id number]-[id number]-biot-zinc 1 tab PO DAILY 07/08/19 07/08/19 History [Dialyvite] amlodipine 5 mg PO DAILY 07/08/19 07/08/19 History anastrozole 1 mg PO DAILY 07/08/19 07/08/19 History atorvastatin [Lipitor] 20 mg PO HS 07/08/19 07/08/19 History dexlansoprazole [Dexilant] 60 mg PO DAILY 07/08/19 07/08/19 History fluoxetine 20 mg PO DAILY 07/08/19 07/08/19 History gabapentin 600 mg PO TID 07/08/19 07/08/19 History insulin lispro [Humalog U-100 See Rx Instructions .ROUTE .COMPLEX 07/08/19 07/08/19 History Insulin] levetiracetam 1,000 mg PO BID 07/08/19 07/08/19 History levocetirizine 5 mg PO HS 07/08/19 07/08/19 History meclizine 12.5 mg PO Q6 07/08/19 07/08/19 History metoclopramide HCl 5 mg PO TID 07/08/19 07/08/19 History metoprolol tartrate 50 mg PO BID 07/08/19 07/08/19 History ondansetron 4 mg PO QID PRN 07/08/19 07/08/19 History oxycodone-acetaminophen 10 - 325 tab PO Q6 07/08/19 07/08/19 History sucroferric oxyhydroxide [Velphoro] 500 mg PO DAILYBD 07/08/19 07/08/19 History warfarin [Coumadin] 10 mg PO DAILY 07/08/19 07/08/19 History Patient History Medical History AMS (altered mental status) Social History Preferred Language: Italian Communication Ability: Impaired Drop Wire Hanger Required: No Beliefs That Will Affect Care: None Current Living Situation: Spouse Current Living Situation Comment: home with spouse per EMT Smoking Status: Unknown if ever smoked Physical Exam Physical Exam: Gen.: No acute distress. Alert and oriented to self. She did n ot know the year, month, upcoming holiday (), or which town she is in. She had difficulty answering questions. HEENT: Anicteric sclera. Neck: Thick neck. No bruits. Normal carotid upstrokes bilaterally. Cardiac: PMI was nonpalpable. No ventricular heave. Regular. Normal S1-S2. 1/6 systolic murmur. No rubs, or gallops. Pulmonary: Clear to auscultation bilaterally without wheezes, rales, or rhonchi. Abdomen: Obese. Soft, nontender, nondistended, with normoactive bowel sounds. No bruits noted. Extremities: Left radial pulse is not palpable. Right upper extremity AV fistula with palpable thrill and audible bruit. Trace bilateral lower extremity edema in AKA stumps. No cyanosis. Results & Data Vital Signs (Past 12 Hours) Vital Signs Temp Pulse Pulse Resp BP Pulse Ox 07/09/19 15:00 36.8 C 65 16 119/65 93 07/09/19 12:00 36.5 C 63 20 120/74 92 07/09/19 07:56 79 07/09/19 07:35 36.9 C 79 18 180/84 H 99 Laboratory Results Laboratory Results - last 24 hr 07/08/19 07/08/19 07/09/19 22:21 23:46 06:16 WBC RBC Hgb Hct MCV MCH MCHC RDW Std Deviation RDW Coeff of Shaq Plt Count MPV Immature Gran % (Auto) Neut % (Auto) Lymph % (Auto) [place] % (Auto) Eos % (Auto) Baso % (Auto) Immature Gran # (Auto) Neut # (Auto) Lymph # (Auto) [place] # (Auto) Eos # (Auto) Baso # (Auto) PT 32.7 H INR 3.5 H APTT 50.6 H* PTT Ratio 1.9 Sodium Potassium Chloride Carbon Dioxide Anion Gap BUN Creatinine Est Cr Clr Drug Dosing Est GFR ( Amer) Est GFR (Non-Af Amer) BUN/Creatinine Ratio Glucose POC Glucose 104 H Estimat Average Glucose Hemoglobin A1c Calcium Phosphorus Magnesium Total Bilirubin AST ALT Alkaline Phosphatase Troponin I Total Protein Albumin Globulin Albumin/Globulin Ratio Triglycerides Cholesterol LDL Cholesterol, Calc VLDL Cholesterol, Calc HDL Cholesterol Cholesterol/HDL Ratio Nasal Screen MRSA (PCR) Negative 07/09/19 07/09/19 07/09/19 06:16 06:16 06:16 WBC 10.89 H RBC 3.94 L Hgb 11.2 L Hct 35.7 L MCV 90.6 MCH 28.4 MCHC 31.4 L RDW Std Deviation 50.3 H RDW Coeff of Shaq 15.2 H Plt Count 279 MPV 9.1 Immature Gran % (Auto) 0.2 Neut % (Auto) 73.1 Lymph % (Auto) 14.8 [place] % (Auto) 9.3 Eos % (Auto) 2.0 Baso % (Auto) 0.6 Immature Gran # (Auto) 0.02 Neut # (Auto) 7.96 H Lymph # (Auto) 1.61 [place] # (Auto) 1.01 H Eos # (Auto) 0.22 Baso # (Auto) 0.07 PT INR APTT PTT Ratio Sodium 138 Potassium 3.7 Chloride 100 Carbon Dioxide 33 H Anion Gap 6.0 BUN 14 Creatinine 3.15 H Est Cr Clr Drug Dosing 11.3 Est GFR ( Amer) 17.7 Est GFR (Non-Af Amer) 15.3 BUN/Creatinine Ratio 4.4 L Glucose 93 POC Glucose Estimat Average Glucose 117 Hemoglobin A1c 5.7 H Calcium 8.0 L Phosphorus 3.5 Magnesium 1.6 L Total Bilirubin 0.4 AST 36 ALT 19 Alkaline Phosphatase 130 H Troponin I < 0.015 Total Protein 5.6 L Albumin 2.1 L Globulin 3.5 Albumin/Globulin Ratio 0.6 L Triglycerides 113 Cholesterol 176 LDL Cholesterol, Calc 108 VLDL Cholesterol, Calc 23 HDL Cholesterol 45 Cholesterol/HDL Ratio 4 Nasal Screen MRSA (PCR) 07/09/19 07/09/19 07/09/19 06:16 07:46 11:57 WBC RBC Hgb Hct MCV MCH MCHC RDW Std Deviation RDW Coeff of Shaq Plt Count MPV Immature Gran % (Auto) Neut % (Auto) Lymph % (Auto) [place] % (Auto) Eos % (Auto) Baso % (Auto) Immature Gran # (Auto) Neut # (Auto) Lymph # (Auto) [place] # (Auto) Eos # (Auto) Baso # (Auto) PT INR APTT PTT Ratio Sodium Potassium Chloride Carbon Dioxide Anion Gap BUN Creatinine Est Cr Clr Drug Dosing Est GFR ( Amer) Est GFR (Non-Af Amer) BUN/Creatinine Ratio Glucose POC Glucose 85 85 93 Estimat Average Glucose Hemoglobin A1c Calcium Phosphorus Magnesium Total Bilirubin AST ALT Alkaline Phosphatase Troponin I Total Protein Albumin Globulin Albumin/Globulin Ratio Triglycerides Cholesterol LDL Cholesterol, Calc VLDL Cholesterol, Calc HDL Cholesterol Cholesterol/HDL Ratio Nasal Screen MRSA (PCR) 07/09/19 16:22 WBC RBC Hgb Hct MCV MCH MCHC RDW Std Deviation RDW Coeff of Shaq Plt Count MPV Immature Gran % (Auto) Neut % (Auto) Lymph % (Auto) [place] % (Auto) Eos % (Auto) Baso % (Auto) Immature Gran # (Auto) Neut # (Auto) Lymph # (Auto) [place] # (Auto) Eos # (Auto) Baso # (Auto) PT INR APTT PTT Ratio Sodium Potassium Chloride Carbon Dioxide Anion Gap BUN Creatinine Est Cr Clr Drug Dosing Est GFR ( Amer) Est GFR (Non-Af Amer) BUN/Creatinine Ratio Glucose POC Glucose 100 H Estimat Average Glucose Hemoglobin A1c Calcium Phosphorus Magnesium Total Bilirubin AST ALT Alkaline Phosphatase Troponin I Total Protein Albumin Globulin Albumin/Globulin Ratio Triglycerides Cholesterol LDL Cholesterol, Calc VLDL Cholesterol, Calc HDL Cholesterol Cholesterol/HDL Ratio Nasal Screen MRSA (PCR) Diagnostic Findings Telemetry personally reviewed: Sinus rhythm. No arrhythmia. No significant pauses. ECGs personally reviewed: ECG 07/09/2019 at 5:17 a.m.: Sinus rhythm with PACs at [address]/T-wave abnormality. ECG MALCOLM Terrance 07/08/2019: Sinus rhythm 77 bpm. Nonspecific T-wave abnormality. Echo images personally reviewed from 07/09/2019: Normal left ventricular size, wall motion, systolic function. EF 65-70%. Mild mitral regurgitation. Medications Administered Current Inpatient Medications Acetaminophen (Tylenol) 650 mg PO Q4H PRN PRN Reason: Pain or Fever Stop: 08/07/19 22:29 Amlodipine Besylate (Norvasc) 5 mg PO DAILY HILARIO Stop: 08/08/19 08:59 Last Admin: 07/09/19 10:09 Dose: 5 mg Documented by: Anastrozole (Arimidex) 1 mg PO DAILY HILARIO Stop: 08/08/19 08:59 Last Admin: 07/09/19 10:10 Dose: 1 mg Documented by: Atorvastatin Calcium (Lipitor) 20 mg PO HS HILARIO Stop: 08/08/19 20:59 Dextrose (Dextrose 50%) 25 - 50 ml IV UD PRN; Protocol PRN Reason: Hypoglycemia Protocol Stop: 08/07/19 23:29 Gabapentin (Neurontin) 300 mg PO QAM [facility]ILARIO Stop: 08/09/19 08:59 Glucagon (Glucagen) 1 mg SQ UD PRN; Protocol PRN Reason: Hypoglycemia Protocol Stop: 08/07/19 23:29 Glucose (Glucose 40%) 15 - 30 gm PO UD PRN; Protocol PRN Reason: Hypoglycemia Protocol Stop: 08/07/19 23:29 Glucose (Dex4 Glucose) 4 - 8 tabs PO UD PRN; Protocol PRN Reason: Hypoglycemia Protocol Stop: 08/07/19 23:29 Hydralazine HCl (Hydralazine Hcl) 10 mg IV Q6H PRN PRN Reason: SBP > 180, DBP > 110 Stop: 08/07/19 23:29 Last Admin: 07/08/19 23:33 Dose: 10 mg Documented by: Insulin Aspart (Novolog Flexpen) 0 units SC ACHS [facility] Stop: 08/08/19 16:29 Last Admin: 07/09/19 17:43 Dose: 3 units Documented by: Levetiracetam (Keppra) 1,000 mg PO QAM [facility] Stop: 08/09/19 08:59 Metoclopramide HCl (Reglan) 5 mg PO TID [facility] Stop: 08/08/19 08:59 Last Admin: 07/09/19 13:23 Dose: 5 mg Documented by: Metoprolol Tartrate (Lopressor) 50 mg PO BID [facility] Stop: 08/07/19 22:59 Last Admin: 07/09/19 10:09 Dose: 50 mg Documented by: Miscellaneous (Order Awaiting Action) 1 ea N/A QS [facility] Stop: 08/08/19 00:00 Last Admin: 07/09/19 17:06 Dose: Not Given Documented by: Miscellaneous (Carbohydrates For Hypoglycemia) 15 - 30 gm PO UD PRN PRN Reason: Hypoglycemia Treatment Stop: 08/07/19 23:29 Nystatin (Mycostatin) 1 appln EXT QSHIFT PRN PRN Reason: Affected Skin Folds Stop: 08/07/19 22:10 Ondansetron HCl (Zofran) 4 mg IV Q6H PRN PRN Reason: Nausea Stop: 08/07/19 22:29 Pantoprazole Sodium (Protonix) 40 mg PO DAILY [facility] Stop: 08/08/19 08:59 Last Admin: 07/09/19 10:10 Dose: 40 mg Documented by: Polyethylene Glycol (Miralax Powder Packet) 17 gm PO DAILY PRN PRN Reason: Constipation Stop: 08/07/19 22:29 Warfarin Sodium (Coumadin) 10 mg PO DAILY@1600 [facility] Stop: 08/08/19 15:59 PG Care Time/CCT Total # of Minutes Spent Total Time Spent with Patient: Total time spent is greater than 50% in coordination of care (as documented) at patient's floor/unit and/or counseling patient:
[2019-07-09] MEDS: ATORVASTATIN 20 MG TAB PO SCH ×2 (20:28→20:33)
[2019-07-10] MEDS: VELPHORO~ORDER AWAITING ACTION SCH ×4 (00:17→23:11)
--- NOTE | 2019-07-10 03:26 | Billing Data ---
Coding Level of Care Code 95014 Initial Inpt Care Lvl 3
[2019-07-10 08:07] LABS: Basophils # (auto) 0.06 K/uL (0-0.2); Basophils % (auto) 0.9 %; Eosinophils # (auto) 0.32 K/uL (0-0.5); Eosinophils % (auto) 4.9 %; Hematocrit (blood only) 37.1 % (37-47); Hemoglobin 11.5 g/dL (12.0-16.0); Immature Granulocytes # (auto) 0.01 K/uL (0.00-0.02); Immature Granulocytes % (auto) 0.2 %; Lymphocytes # (auto) 1.29 K/uL (1.2-3.4); Lymphocytes % (auto) 19.7 %; Mean Corpuscular Hemoglobin 27.7 pg (25-34); Mean Corpuscular Volume 89.4 fL (80-100); Monocytes # (auto) 0.56 K/uL (0.11-0.59); Monocytes % (auto) 8.5 %; Neutrophils # (auto) 4.31 K/uL (1.4-6.5); Neutrophils % (auto) 65.8 %; Platelet Count 270 K/uL (130-400); RDW Coefficient of Variation 15.4 % (11.5-14.5); RDW Standard Deviation 50.3 fL (36.4-46.3); Red Blood Count 4.15 M/uL (4.2-5.4); White Blood Count 6.55 K/uL (4.8-10.8)
[2019-07-10] MEDS: INSULIN ASPART 100 UNITS/ML 3 ML PEN SC SCH ×4 (08:12→20:45)
[2019-07-10] MEDS: levETIRAcetam 500 MG TAB PO SCH (08:13)
[2019-07-10] MEDS: ANASTROZOLE 1 MG TAB PO SCH (08:14)
[2019-07-10] MEDS: PANTOprazole 40 MG TAB PO SCH (08:14)
[2019-07-10] MEDS: AMLODIPINE BESYLATE 5 MG TAB PO SCH (08:15)
[2019-07-10] MEDS: METOCLOPRAMIDE HCL 5 MG TABLET PO SCH ×3 (08:15→20:18)
[2019-07-10] MEDS: GABAPENTIN 300 MG CAP PO SCH (08:15)
[2019-07-10] MEDS: METOPROLOL TARTRATE 50 MG TAB PO SCH ×2 (08:15→20:18)
[2019-07-10 08:36] LABS: BUN Creatinine Ratio 4.2 (10-20); Calcium 8.2 mg/dl (8.5-10.1); Creatinine Clr Calc Pharmacy 8.8 ml/min; Est GFR (African American) 12.8; Potassium 3.4 mmol/L (3.5-5.1)
[2019-07-10] MEDS ORDERED: SODIUM CHLORIDE 0.9% 1000ML 1,000 ML IV PRN (08:53)
--- NOTE | 2019-07-10 12:43 | Nephrology Progress Note ---
Date of Service July 10, 2019 Assessment & Plan (1) ESRD (end stage renal disease): End-stage renal disease on hemodialysis Monday, Monday, Monday via right upper extremity AV fistula. Admitted with change in mental status possibly secondary to normal pressure hydrocephalus. Had only 2 hours dialysis yesterday however currently her electrolyte acceptable, volume status okay although blood pressure running high. --will plan for dialysis today as her regular schedule --avoid IV fluid --JON 4000 units x1 dose with dialysis --if blood pressure remained elevated, suggest increasing amlodipine to 10 mg daily --dose medications for GFR less than 10 --OK to be discharged after dialysis. Will follow. (2) DM2 (diabetes mellitus, type 2): (3) HTN (hypertension): (4) Hx of BKA: (5) AMS (altered mental status): Wade Jorgensen was seen and examined in her room this morning. Overall feeling better, denies SOB, CP, confusion. Review of Systems Review of Systems: All systems reviewed & are unremarkable except as noted in HPI & below Physical Exam Constitutional: WD/WN, vitals as above + altered mental status; no acute distress Respiratory: normal respiratory effort, lungs clear to auscultation no cough Auscultation: no crackles, no rales and no wheezes Cardiovascular: RRR, no murmur, no edema Skin: no rashes, warm and dry Neurologic: moves all extremities, awake and + confused Psychiatric: A+Ox3, euthymic affect Results & Data Vital Signs (Past 12 Hours) Vital Signs Temp Pulse Pulse Pulse Resp BP BP 07/10/19 12:20 62 126/62 07/10/19 12:00 71 143/72 H 07/10/19 11:40 65 131/63 07/10/19 11:20 68 125/66 07/10/19 11:00 60 102/54 L 07/10/19 10:40 62 105/51 L 07/10/19 10:20 66 145/76 H 07/10/19 10:05 36.4 C L 69 07/10/19 07:43 71 07/10/19 07:13 36.6 C 73 18 168/79 H 07/10/19 04:00 36.9 C 74 20 176/77 H 07/10/19 01:05 65 Pulse Ox 07/10/19 12:20 07/10/19 12:00 07/10/19 11:40 07/10/19 11:20 07/10/19 11:00 07/10/19 10:40 07/10/19 10:20 07/10/19 10:05 07/10/19 07:43 07/10/19 07:13 96 07/10/19 04:00 99 07/10/19 01:05 PG Care Time/CCT Total # of Minutes Spent Total Time Spent with Patient: Total time spent is greater than 50% in coordination of care (as documented) at patient's floor/unit and/or counseling patient:
--- NOTE | 2019-07-10 14:58 | Neurology Progress Note ---
Date of Service July 10, 2019 Assessment & Plan (1) AMS (altered mental status): Joslyn Lieberman is an 58-year-old woman with past medical history of diabetes, GERD, CAD, hypertension, reported history of epilepsy and ESRD on hemodialysis Monday who presents as a transfer from [facility] for altered mental status. #Altered mental status: No clear sign of infection and has been improving after several home medications were held. Believes that her symptoms could have been due to a combination of oversedation from Keppra, gabapentin and oxycodone in light of her renal disease. She may also have a component of dialysis disequi librium syndrome which can present with acute confusion during or immediately after dialysis. -Recommend holding further oxycodone as it is not clear why she is even on this -Recommend starting thiamine, folate, Nephrocaps renal dose meds to prevent AMS -Recommend sending B12, TSH, ammonia level to complete AMS work-up -Would be helpful to get baseline mental status from family to determine how far where she is from her baseline -Delirium precautions, lights on during the day, lights off in the evening, frequent reorientation, bed up during the day and regular schedule with meals and snacks, avoid opiates/benzos/antipsychotics # Epilepsy: - AEDs: keppra 1000mg q24hrs w/ 250mg extra after dialysis M/W/F - f/u with neurology (if no local neurologist, welcome to follow up in our office) # DM c/b neuropathy: - gabapentin 300mg daily w/ extra 125mg given 4 hours after dialysis MWF We will continue to follow peripherally. Please call or text with any questions. (2) Seizure disorder: (3) ESRD (end stage renal disease): Subjective No acute events overnight. She reports that she is doing well today. She is much more alert and answering more questions. She is still not oriented to her age or where she is at, but does know the month of the year. Denied any complaints other than she does not like her food here. Review of Systems Review of Systems: Unobtainable due to cognitive status Physical Exam Physical Exam: General Exam: GEN: NAD, sitting in bed. HEENT: No conjunctival injection, no rhinorrhea. CV: RRR, no peripheral edema PULM: Nonlabored respirations on 2L NC. Neuro Exam: MS: Awake and Alert. Oriented to self and month/year but not location or situation. Speech fluent though sparse. Able to repeat and comprehend though does not consistently follow directions, naming limited due to mental status and unwillingness to participate in exam (asked if she really needed to do this). Poor historian though able to report that she does have a neurologist but does not know when she saw them or their name. Inattentive. No clear neglect. CN: Unable to perform funduscopic exam as patient kept closing her eyes. PERRLA OU. EOMI. Facial sensation intact to LT. Facial muscles full and symmetric. Hearing intact to conversation. Uvula midline with symmetric palatal elevation. Shoulder shrug normal. Tongue midline. MOTOR: Normal bulk and tone. No pronator drift. Bilateral upper extremities antigravity with slow drift to bed. Has bilateral BKA's REFLEXES: 1+ at biceps, triceps, brachioradialis, unable to assess patella and Achilles secondary to bilateral BKA's. SENSORY: Intact to LT without extinction to double simultaneous stimuli. Vibration intact throughout. COORDINATION: No dysmetria on observed movements. GAIT: Unable to assess secondary to bilateral BKA's. Results & Data Vital Signs (Past 12 Hours) Vital Signs Temp Pulse Pulse Pulse Resp BP BP 07/10/19 13:10 36.4 C L 70 178/78 H 07/10/19 13:00 69 173/84 H 07/10/19 12:40 64 138/67 07/10/19 12:20 62 126/62 07/10/19 12:00 71 143/72 H 07/10/19 11:40 65 131/63 07/10/19 11:20 68 125/66 07/10/19 11:00 60 102/54 L 07/10/19 10:40 62 105/51 L 07/10/19 10:20 66 145/76 H 07/10/19 10:05 36.4 C L 69 07/10/19 07:43 71 07/10/19 07:13 36.6 C 73 18 168/79 H 07/10/19 04:00 36.9 C 74 20 176/77 H Pulse Ox 07/10/19 13:10 07/10/19 13:00 07/10/19 12:40 07/10/19 12:20 07/10/19 12:00 07/10/19 11:40 07/10/19 11:20 07/10/19 11:00 07/10/19 10:40 07/10/19 10:20 07/10/19 10:05 07/10/19 07:43 07/10/19 07:13 96 07/10/19 04:00 99 PG Care Time/CCT Total # of Minutes Spent Total Time Spent with Patient: Total time spent is greater than 50% in coordination of care (as documented) at patient's floor/unit and/or counseling patient:
[2019-07-10] MEDS: levETIRAcetam 250 MG TAB PO SCH (15:18)
--- NOTE | 2019-07-10 15:55 | Hospitalist Progress Note ---
Date of Service July 10, 2019 Assessment & Plan (1) Toxic encephalopathy: improved the past two days d/w Dr. Dallas, most logical explanation would be inappropriate dosing of Keppra and Gabapentin will decrease Keppra to 1000mg daily with extra 250mg after HD will decrease Gabapentin to 300mg qAM with 125mg after HD sessions will hold Oxycodone no evidence of stroke on MRI, neurology does not feel the imaging represents NPH alert and oriented x 3 today, will d/c home tomorrow (2) ESRD (end stage renal disease): nephrology consulted for HD orders electrolytes stable tolerated full session of HD today with UF can follow up Monday for normal outpatient HD (3) DM2 (diabetes mellitus, type 2): diabetic diet Novolog SS monitor for hypoglycemia, no episodes eating much better (4) Seizure disorder: as mentioned above will reduce Keppra to 1000mg daily with 250mg after HD (5) HTN (hypertension): BP stable continue Norvasc, metoprolol (6) Respiratory failure: acute hypoxia, resolved after HD with UF (7) GERD (gastroesophageal reflux disease): continue PPI Subjective patient feeling much better today, tolerated full session of HD she is alert, oriented to person, place and time no chest pain, no fever/chills, no cough, no dyspnea will get PT/OT evaluations CM discussed with , he can take her home in the morning labs reviewed, WBC normal, Hb stable, Cr is 4.1 and K is 3.4 prior to HD patient eating well discussed with Dr. Arciniega, patient stable for d/c from nephrology perspective discussed with Dr. Dallas, nothing further to add from neurology perspective Review of Systems Review of Systems: All systems reviewed & are unremarkable except as noted in HPI & below Physical Exam Constitutional: WD/WN, vitals as above + overweight Eyes: PERRL, conjunctivae normal, anicteric sclerae ENMT: external ear and nose normal, oropharynx normal Neck: trachea midline, no thyromegaly Respiratory: normal respiratory effort, lungs clear to auscultation Auscultation: + diminished lung sounds (bases) Cardiovascular: RRR, no murmur, no edema Gastrointestinal (Abdomen): normal bowel sounds, soft, nontender, no hepatosplenomegaly Musculoskeletal: no cyanosis or clubbing, extremities motor strength 5/5 (bilateral AKA) Skin: no rashes, warm and dry + wound (left stump posteriorly) Neurologic: PERRL, EOMI, accommodation nl, no face palsy, no dysarthria Psychiatric: Orientation: alert, oriented to person, oriented to place, o riented to time and cooperative Eye Contact: good eye contact Results & Data Vital Signs (Past 12 Hours) Vital Signs Temp Pulse Pulse Pulse Resp BP BP 07/10/19 15:16 36.7 C 72 20 150/85 H 07/10/19 13:10 36.4 C L 70 178/78 H 07/10/19 13:00 69 173/84 H 07/10/19 12:40 64 138/67 07/10/19 12:20 62 126/62 07/10/19 12:00 71 143/72 H 07/10/19 11:40 65 131/63 07/10/19 11:20 68 125/66 07/10/19 11:00 60 102/54 L 07/10/19 10:40 62 105/51 L 07/10/19 10:20 66 145/76 H 07/10/19 10:05 36.4 C L 69 07/10/19 07:43 71 07/10/19 07:13 36.6 C 73 18 168/79 H 07/10/19 04:00 36.9 C 74 20 176/77 H Pulse Ox 07/10/19 15:16 98 07/10/19 13:10 07/10/19 13:00 07/10/19 12:40 07/10/19 12:20 07/10/19 12:00 07/10/19 11:40 07/10/19 11:20 07/10/19 11:00 07/10/19 10:40 07/10/19 10:20 07/10/19 10:05 07/10/19 07:43 07/10/19 07:13 96 07/10/19 04:00 99 Laboratory Results Laboratory Results - last 24 hr 07/09/19 07/09/19 07/10/19 16:22 20:14 07:37 WBC RBC Hgb Hct MCV MCH MCHC RDW Std Deviation RDW Coeff of Shaq Plt Count MPV Immature Gran % (Auto) Neut % (Auto) Lymph % (Auto) [place] % (Auto) Eos % (Auto) Baso % (Auto) Immature Gran # (Auto) Neut # (Auto) Lymph # (Auto) [place] # (Auto) Eos # (Auto) Baso # (Auto) Sodium Potassium Chloride Carbon Dioxide Anion Gap BUN Creatinine Est Cr Clr Drug Dosing Est GFR ( Amer) Est GFR (Non-Af Amer) BUN/Creatinine Ratio Glucose POC Glucose 100 H 87 84 Calcium 07/10/19 07/10/19 07/10/19 07:45 07:45 13:51 WBC 6.55 RBC 4.15 L Hgb 11.5 L Hct 37.1 MCV 89.4 MCH 27.7 MCHC 31.0 L RDW Std Deviation 50.3 H RDW Coeff of Shaq 15.4 H Plt Count 270 MPV 9.0 Immature Gran % (Auto) 0.2 Neut % (Auto) 65.8 Lymph % (Auto) 19.7 [place] % (Auto) 8.5 Eos % (Auto) 4.9 Baso % (Auto) 0.9 Immature Gran # (Auto) 0.01 Neut # (Auto) 4.31 Lymph # (Auto) 1.29 [place] # (Auto) 0.56 Eos # (Auto) 0.32 Baso # (Auto) 0.06 Sodium 137 Potassium 3.4 L Chloride 98 Carbon Dioxide 31 Anion Gap 8.0 BUN 17 Creatinine 4.13 H D Est Cr Clr Drug Dosing 8.8 Est GFR ( Amer) 12.8 Est GFR (Non-Af Amer) 11.0 BUN/Creatinine Ratio 4.2 L Glucose 88 POC Glucose 86 Calcium 8.2 L Medications Administered Current Inpatient Medications Acetaminophen (Tylenol) 650 mg PO Q4H PRN PRN Reason: Pain or Fever Stop: 08/07/19 22:29 Last Admin: 07/09/19 19:29 Dose: 650 mg Documented by: Amlodipine Besylate (Norvasc) 5 mg PO DAILY [facility] Stop: 08/08/19 08:59 Last Admin: 07/10/19 08:15 Dose: Not Given Documented by: Anastrozole (Arimidex) 1 mg PO DAILY [facility] Stop: 08/08/19 08:59 Last Admin: 07/10/19 08:14 Dose: 1 mg Documented by: Atorvastatin Calcium (Lipitor) 20 mg PO HS [facility] Stop: 08/08/19 20:59 Last Admin: 07/09/19 20:33 Dose: 20 mg Documented by: Dextrose (Dextrose 50%) 25 - 50 ml IV UD PRN; Protocol PRN Reason: Hypoglycemia Protocol Stop: 08/07/19 23:29 [facility] [place]: 08/09/19 08:59 Last Admin: 07/10/19 08:15 Dose: Not Given Documented by: Glucagon (Glucagen) 1 mg SQ UD PRN; Protocol PRN Reason: Hypoglycemia Protocol Stop: 08/07/19 23:29 Glucose (Glucose 40%) 15 - 30 gm PO UD PRN; Protocol PRN Reason: Hypoglycemia Protocol Stop: 08/07/19 23:29 Glucose (Dex4 Glucose) 4 - 8 tabs PO UD PRN; Protocol PRN Reason: Hypoglycemia Protocol Stop: 08/07/19 23:29 Hydralazine HCl (Hydralazine Hcl) 10 mg IV Q6H PRN PRN Reason: SBP > 180, DBP > 110 Stop: 08/07/19 23:29 Last Admin: 07/08/19 23:33 Dose: 10 mg Documented by: Insulin Aspart (Novolog Flexpen) 0 units SC ACHS [facility] Stop: 08/08/19 16:29 Last Admin: 07/10/19 13:57 Dose: Not Given Documented by: [facility]etiracetam (Keppra) [facility] [place] [place]: 08/09/19 08:59 Last Admin: 07/10/19 08:13 Dose: 1,000 mg Documented by: Levetiracetam (Keppra) 250 mg PO MoWeFr@1400 [facility] Stop: 08/09/19 14:59 Last Admin: 07/10/19 15:18 Dose: 250 mg Documented by: Metoclopramide HCl (Reglan) 5 mg PO TID [facility] Stop: 08/08/19 08:59 Last Admin: 07/10/19 13:58 Dose: 5 mg Documented by: Metoprolol Tartrate (Lopressor) 50 mg PO BID [facility] Stop: 08/07/19 22:59 Last Admin: 07/10/19 08:15 Dose: Not Given Documented by: Miscellaneous (Order Awaiting Action) 1 ea N/A QS [facility] Stop: 08/08/19 00:00 Last Admin: 07/10/19 15:19 Dose: Not Given Documented by: Miscellaneous (Carbohydrates For Hypoglycemia) 15 - 30 gm PO UD PRN PRN Reason: Hypoglycemia Treatment Stop: 08/07/19 23:29 Nystatin (Mycostatin) 1 appln EXT QSHIFT PRN PRN Reason: Affected Skin Folds Stop: 08/07/19 22:10 Ondansetron HCl (Zofran) 4 mg IV Q6H PRN PRN Reason: Nausea Stop: 08/07/19 22:29 Pantoprazole Sodium (Protonix) 40 mg PO DAILY [facility] Stop: 08/08/19 08:59 Last Admin: 07/10/19 08:14 Dose: 40 mg Documented by: Polyethylene Glycol (Miralax Powder Packet) 17 gm PO DAILY PRN PRN Reason: Constipation Stop: 08/07/19 22:29 Warfarin Sodium (Coumadin) 10 mg PO DAILY@1600 [facility] Stop: 08/08/19 15:59 PG Care Time/CCT Total # of Minutes Spent Total Time Spent with Patient: Total time spent is greater than 50% in coordination of care (as documented) at patient's floor/unit and/or counseling patient:
[2019-07-10] MEDS: ATORVASTATIN 20 MG TAB PO SCH (20:18)
[2019-07-11 07:09] LABS: Hematocrit (blood only) 35.8 % (37-47); Hemoglobin 11.2 g/dL (12.0-16.0); Mean Corpuscular Hemoglobin 27.8 pg (25-34); Mean Corpuscular Hgb Conc 31.3 g/dL (32-36); Mean Corpuscular Volume 88.8 fL (80-100); Mean Platelet Volume 8.9 fL (7.4-10.4); Platelet Count 264 K/uL (130-400); RDW Coefficient of Variation 15.1 % (11.5-14.5); Red Blood Count 4.03 M/uL (4.2-5.4); White Blood Count 7.88 K/uL (4.8-10.8)
[2019-07-11 07:48] LABS: Albumin Level 2.2 gm/dl (3.4-5.0); BUN Creatinine Ratio 3.5 (10-20); Calcium 8.1 mg/dl (8.5-10.1); Est GFR (African American) 18.7; Est GFR (Non-African American) 16.1; Phosphorus 3.1 mg/dl (2.5-4.9); Potassium 3.7 mmol/L (3.5-5.1)
[2019-07-11] MEDS: GABAPENTIN 300 MG CAP PO SCH (08:14)
[2019-07-11] MEDS: METOPROLOL TARTRATE 50 MG TAB PO SCH ×2 (08:14→20:50)
[2019-07-11] MEDS: PANTOprazole 40 MG TAB PO SCH (08:14)
[2019-07-11] MEDS: METOCLOPRAMIDE HCL 5 MG TABLET PO SCH ×3 (08:14→20:51)
[2019-07-11] MEDS: levETIRAcetam 500 MG TAB PO SCH (08:15)
[2019-07-11] MEDS: AMLODIPINE BESYLATE 5 MG TAB PO SCH (08:15)
[2019-07-11] MEDS: INSULIN ASPART 100 UNITS/ML 3 ML PEN SC SCH ×4 (08:16→21:39)
[2019-07-11] MEDS: ANASTROZOLE 1 MG TAB PO SCH (08:16)
[2019-07-11] MEDS: VELPHORO~ORDER AWAITING ACTION SCH ×3 (08:17→23:15)
--- NOTE | 2019-07-11 10:39 | Nephrology Progress Note ---
Date of Service July 11, 2019 Assessment & Plan (1) ESRD (end stage renal disease): End-stage renal disease on hemodialysis Monday, Monday, Monday via right upper extremity AV fistula. Admitted with change in mental status changes. Improved following adjustment in Keppra, Gabapentin and pain medication -- If discharge is anticipated, please have patient resume her regular outpatient MWF schedule at [facility] -- Will provide HD as inpatient tomorrow if patient remains hospitalized (2) DM2 (diabetes mellitus, type 2): (3) HTN (hypertension): (4) Hx of BKA: (5) AMS (altered mental status): Subjective Mrs. Lieberman was seen & examined in her hospital room this morning. She was alert and oriented to person/place and time. She currently denies fever, dyspnea, angina or uremic symptoms. Review of Systems Constitutional: no fever and no chills Eyes: no worsening vision and no problem reported Ear, Nose, Mouth, Throat: no problem reported Respiratory: no cough and no dyspnea Cardiovascular: no chest pain, no palpitations and no edema Gastrointestinal: no abdominal pain, no nausea, no vomiting and no diarrhea/loose stools Genitourinary: no dysuria and no hematuria Musculoskeletal: no back pain Integumentary: no rash Neurologic: no falls, no dizziness and no confusion Physical Exam Constitutional: + overweight; not in distress Eyes: PERRL, conjunctivae normal, anicteric sclerae ENMT: external ear and nose normal, oropharynx normal Neck: trachea midline, no thyromegaly Respiratory: normal respiratory effort, lungs clear to auscultation Cardiovascular: Rate/Rhythm: regular rate and regular rhythm Gastrointestinal (Abdomen): normal bowel sounds, soft, nontender, no hepatosplenomegaly Musculoskeletal: Extremities: no cyanosis Skin: no rashes, warm and dry Neurologic: awake; not confused Results & Data Vital Signs (Past 12 Hours) Vital Signs Temp Pulse Pulse Resp BP Pulse Ox 07/11/19 07:39 36.4 C L 66 17 167/56 H 99 07/11/19 07:05 63 07/11/19 00:00 64 07/10/19 23:11 36.5 C 64 18 121/72 Laboratory Results Laboratory Tests 07/11/19 07/11/19 06:49 06:49 WBC 7.88 Hgb 11.2 L Hct 35.8 L Plt Count 264 Sodium 132 L Potassium 3.7 Chloride 95 L Carbon Dioxide 30 BUN 11 Creatinine 3.01 H D Glucose 87 PG Care Time/CCT Total # of Minutes Spent Total Time Spent with Patient: Total time spent is greater than 50% in coordination of care (as documented) at patient's floor/unit and/or counseling patient:
--- NOTE | 2019-07-11 12:45 | Hospitalist Progress Note ---
Date of Service July 11, 2019 Assessment & Plan (1) Toxic encephalopathy: improved the past three days d/w Dr. Dallas, most logical explanation would be inappropriate dosing of Keppra and Gabapentin continue decreased Keppra at 1000mg daily with extra 250mg after HD continue decreased Gabapentin at 300mg qAM with 100mg after HD sessions will hold Oxycodone (patient says she rarely takes at home) no evidence of stroke on MRI, neurology does not feel the imaging represents NPH alert and oriented x 3 today, will d/c home tomorrow after HD when transport arranged (2) ESRD (end stage renal disease): nephrology consulted for HD orders electrolytes stable tolerated full session of HD on 07/10 plan for HD tomorrow prior to d/c (3) DM2 (diabetes mellitus, type 2): diabetic diet Novolog SS monitor for hypoglycemia, sugars in 100's eating much better (4) Seizure disorder: as mentioned above will reduce Keppra to 1000mg daily with 250mg after HD (5) HTN (hypertension): BP stable continue Norvasc, metoprolol (6) Respiratory failure: acute hypoxia, resolved after HD with UF (7) GERD (gastroesophageal reflux disease): continue PPI Subjective patient doing well, no issues overnight eating well, breathing is stable, uses oxygen at home, no distress minimal cough, no sputum production no fever or chills called to update and discuss going home unfortunately cannot arrange transport, will try for tomorrow labs all stable today Review of Systems Review of Systems: All systems reviewed & are unremarkable except as noted in HPI & below Physical Exam Constitutional: WD/WN, vitals as above + overweight Eyes: PERRL, conjunctivae normal, anicteric sclerae ENMT: external ear and nose normal, oropharynx normal Neck: trachea midline, no thyromegaly Respiratory: normal respiratory effort, lungs clear to auscultation Auscultation: + diminished lung sounds (bases) Cardiovascular: RRR, no murmur, no edema Gastrointestinal (Abdomen): normal bowel sounds, soft, nontender, no hepatosplenomegaly Musculoskeletal: no cyanosis or clubbing, extremities motor strength 5/5 (bilateral AKA) Skin: no rashes, warm and dry + wound (left stump posteriorly) Neurologic: PERRL, EOMI, accommodation nl, no face palsy, no dysarthria Psychiatric: Orientation: alert, oriented to person, oriented to place, oriented to time and cooperative Eye Contact: good eye contact Results & Data Vital Signs (Past 12 Hours) Vital Signs Temp Pulse Pulse Resp BP Pulse Ox 07/11/19 07:39 36.4 C L 66 17 167/56 H 99 07/11/19 07:05 63 Laboratory Results Laboratory Results - last 24 hr 07/10/19 07/10/19 07/10/19 13:51 16:17 20:10 WBC RBC Hgb Hct MCV MCH MCHC RDW Std Deviation RDW Coeff of Hsaq Plt Count MPV Sodium Potassium Chloride Carbon Dioxide Anion Gap BUN Creatinine Est Cr Clr Drug Dosing Est GFR ( Amer) Est GFR (Non-Af Amer) BUN/Creatinine Ratio Glucose POC Glucose 86 108 H 118 H Calcium Phosphorus Albumin 07/11/19 07/11/19 07/11/19 06:49 06:49 07:48 WBC 7.88 RBC 4.03 L Hgb 11.2 L Hct 35.8 L MCV 88.8 MCH 27.8 MCHC 31.3 L RDW Std Deviation 49.0 H RDW Coeff of Shaq 15.1 H Plt Count 264 MPV 8.9 Sodium 132 L Potassium 3.7 Chloride 95 L Carbon Dioxide 30 Anion Gap 7.0 BUN 11 Creatinine 3.01 H D Est Cr Clr Drug Dosing 12.0 Est GFR ( Amer) 18.7 Est GFR (Non-Af Amer) 16.1 BUN/Creatinine Ratio 3.5 L Glucose 87 POC Glucose 112 H Calcium 8.1 L Phosphorus 3.1 Albumin 2.2 L 07/11/19 11:26 WBC RBC Hgb Hct MCV MCH MCHC RDW Std Deviation RDW Coeff of Shaq Plt Count MPV Sodium Potassium Chloride Carbon Dioxide Anion Gap BUN Creatinine Est Cr Clr Drug Dosing Est GFR ( Amer) Est GFR (Non-Af Amer) BUN/Creatinine Ratio Glucose POC Glucose 123 H Calcium Phosphorus Albumin Medications Administered Current Inpatient Medications Acetaminophen (Tylenol) 650 mg PO Q4H PRN PRN Reason: Pain or Fever Stop: 08/07/19 22:29 Last Admin: 07/09/19 19:29 Dose: 650 mg Documented by: Amlodipine Besylate (Norvasc) 5 mg PO DAILY [facility] Stop: 08/08/19 08:59 Last Admin: 07/11/19 08:15 Dose: 5 mg Documented by: Anastrozole (Arimidex) 1 mg PO DAILY [facility] Stop: 08/08/19 08:59 Last Admin: 07/11/19 08:16 Dose: 1 mg Documented by: Atorvastatin Calcium (Lipitor) 20 mg PO HS [facility] Stop: 08/08/19 20:59 Last Admin: 07/10/19 20:18 Dose: 20 mg Documented by: Dextrose (Dextrose 50%) 25 - 50 ml IV UD PRN; Protocol PRN Reason: Hypoglycemia Protocol Stop: 08/07/19 23:29 Gabapentin (Neurontin) 300 mg PO QAM [facility] Stop: 08/09/19 08:59 Last Admin: 07/11/19 08:14 Dose: 300 mg Documented by: Glucagon (Glucagen) 1 mg SQ UD PRN; Protocol PRN Reason: Hypoglycemia Protocol Stop: 08/07/19 23:29 Glucose (Glucose 40%) 15 - 30 gm PO UD PRN; Protocol PRN Reason: Hypoglycemia Protocol Stop: 08/07/19 23:29 Glucose (Dex4 Glucose) 4 - 8 tabs PO UD PRN; Protocol PRN Reason: Hypoglycemia Protocol Stop: 08/07/19 23:29 Heparin Sodium (Porcine) (Heparin Iv Bolus) 2,000 units IV ONE ONE Stop: 07/12/19 07:01 Heparin Sodium (Porcine) (Heparin Iv Bolus) 500 units IV Q1H [facility] Stop: 07/12/19 07:01 Hydralazine HCl (Hydralazine Hcl) 10 mg IV Q6H PRN PRN Reason: SBP > 180, DBP > 110 Stop: 08/07/19 23:29 Last Admin: 07/08/19 23:33 Dose: 10 mg Documented by: Sodium Chloride (Nss 1000ml) 1,000 mls @ 0 mls/hr IV .Q0M PRN PRN Reason: For Hemodialysis Use ONLY Stop: 07/12/19 12:59 Insulin Aspart (Novolog Flexpen) 0 units SC ACHS [facility] Stop: 08/08/19 16:29 Last Admin: 07/11/19 12:24 Dose: 2 units Documented by: Levetiracetam (Keppra) 1,000 mg PO QAM [facility] Stop: 08/09/19 08:59 Last Admin: 07/11/19 08:15 Dose: 1,000 mg Documented by: Levetiracetam (Keppra) 250 mg PO MoWeFr@1400 [facility] Stop: 08/09/19 14:59 Last Admin: 07/10/19 15:18 Dose: 250 mg Documented by: Metoclopramide HCl (Reglan) 5 mg PO TID [facility] Stop: 08/08/19 08:59 Last Admin: 07/11/19 08:14 Dose: 5 mg Documented by: Metoprolol Tartrate (Lopressor) 50 mg PO BID [facility] Stop: 08/07/19 22:59 Last Admin: 07/11/19 08:14 Dose: 50 mg Documented by: Miscellaneous (Order Awaiting Action) 1 ea N/A QS [facility] Stop: 08/08/19 00:00 Last Admin: 07/11/19 08:17 Dose: Not Given Documented by: Miscellaneous (Carbohydrates For Hypoglycemia) 15 - 30 gm PO UD PRN PRN Reason: Hypoglycemia Treatment Stop: 08/07/19 23:29 Nystatin (Mycostatin) 1 appln EXT QSHIFT PRN PRN Reason: Affected Skin Folds Stop: 08/07/19 22:10 Ondansetron HCl (Zofran) 4 mg IV Q6H PRN PRN Reason: Nausea Stop: 08/07/19 22:29 Pantoprazole Sodium (Protonix) 40 mg PO DAILY [facility] Stop: 08/08/19 08:59 Last Admin: 07/11/19 08:14 Dose: 40 mg Documented by: Polyethylene Glycol (Miralax Powder Packet) 17 gm PO DAILY PRN PRN Reason: Constipation Stop: 08/07/19 22:29 Warfarin Sodium (Coumadin) 10 mg PO DAILY@1600 [facility] Stop: 08/08/19 15:59 PG Care Time/CCT Total # of Minutes Spent Total Time Spent with Patient: Total time spent is greater than 50% in coordination of care (as documented) at patient's floor/unit and/or counseling patient:
[2019-07-11] MEDS: ATORVASTATIN 20 MG TAB PO SCH (20:50)
[2019-07-12] MEDS ORDERED: HEPARIN SOD (PORCINE) 1000 UNIT/ML 10 ML VIAL IV ONE (07:00)
[2019-07-12] MEDS ORDERED: HEPARIN SOD (PORCINE) 1000 UNIT/ML 10 ML VIAL IV SCH (07:00)
[2019-07-12] MEDS ORDERED: SODIUM CHLORIDE 0.9% 1000ML 1,000 ML IV PRN (07:00)
[2019-07-12] MEDS: PANTOprazole 40 MG TAB PO SCH (08:45)
[2019-07-12] MEDS: METOCLOPRAMIDE HCL 5 MG TABLET PO SCH ×3 (08:45→22:19)
[2019-07-12] MEDS: ANASTROZOLE 1 MG TAB PO SCH (08:45)
[2019-07-12] MEDS: GABAPENTIN 300 MG CAP PO SCH (08:45)
[2019-07-12] MEDS: levETIRAcetam 500 MG TAB PO SCH (08:46)
[2019-07-12] MEDS: METOPROLOL TARTRATE 50 MG TAB PO SCH ×2 (08:47→22:18)
[2019-07-12] MEDS: AMLODIPINE BESYLATE 5 MG TAB PO SCH (08:47)
[2019-07-12] MEDS: INSULIN ASPART 100 UNITS/ML 3 ML PEN SC SCH ×4 (08:47→22:16)
[2019-07-12] MEDS: VELPHORO~ORDER AWAITING ACTION SCH ×2 (08:48→15:44)
--- NOTE | 2019-07-12 09:32 | Nephrology Progress Note ---
Date of Service July 12, 2019 Assessment & Plan (1) ESRD (end stage renal disease): End-stage renal disease on hemodialysis Monday, Monday, Monday via right upper extremity AV fistula. Admitted with change in mental status changes. Improved following adjustment in Keppra, Gabapentin and pain medication -- HD today. Orders have been placed in EMR and HD RN notified -- If discharge is anticipated, please have patient resume her regular outpatient MWF schedule at [facility] (2) HTN (hypertension): --Blood pressure acceptable on Amlodipine and Metoprolol therapy (3) AMS (altered mental status): --MS waxes and wanes. Neurology is assisting. Keppra and Gabapentin doses have been adjusted (4) DM2 (diabetes mellitus, type 2): (5) Hx of BKA: Subjective Mrs. Lieberman was seen & examined in her hospital room this morning. She is lethargic but will awaken to voice. She is oriented x3. She voices no new medical concerns. Review of Systems Constitutional: no fever and no chills Eyes: no worsening vision and no problem reported Ear, Nose, Mouth, Throat: no problem reported Respiratory: no cough and no dyspnea Cardiovascular: no chest pain and no palpitations Gastrointestinal: no abdominal pain, no nausea, no vomiting and no diarrhea/loose stools Genitourinary: no dysuria and no hematuria Musculoskeletal: no back pain Integumentary: no rash Physical Exam Constitutional: + overweight; not in distress Eyes: PERRL, conjunctivae normal, anicteric sclerae ENMT: external ear and nose normal, oropharynx normal Neck: trachea midline, no thyromegaly Respiratory: normal respiratory effort, lungs clear to auscultation Cardiovascular: Rate/Rhythm: regular rate and regular rhythm Gastrointestinal (Abdomen): normal bowel sounds, soft, nontender, no hepatosplenomegaly Musculoskeletal: Extremities: no cyanosis Skin: no rashes, warm and dry Neurologic: awake; not confused Results & Data Vital Signs (Past 12 Hours) Vital Signs Temp Pulse Pulse Pulse Resp BP Pulse Ox 07/12/19 07:40 36.7 C 67 18 106/62 90 07/12/19 03:32 36.5 C 63 16 106/67 97 07/11/19 23:52 64 07/11/19 22:25 37.0 C 67 16 122/66 99 PG Care Time/CCT Total # of Minutes Spent Total Time Spent with Patient: Total time spent is greater than 50% in coordination of care (as documented) at patient's floor/unit and/or counseling patient:
[2019-07-12] MEDS: levETIRAcetam 250 MG TAB PO SCH (13:47)
--- NOTE | 2019-07-12 15:00 | Hospitalist Progress Note ---
Date of Service July 12, 2019 Assessment & Plan (1) Toxic encephalopathy: improved the past four days d/w Dr. Dallas on admission, most logical explanation would be inappropriate dosing of Keppra and Gabapentin continue decreased Keppra at 1000mg daily with extra 250mg after HD continue decreased Gabapentin at 300mg qAM with 100mg after HD sessions will hold Oxycodone (patient says she rarely takes at home) no evidence of stroke on MRI, neurology does not feel the imaging represents NPH alert and oriented x 3 for three days, will d/c home on 07/13 once transportation available (2) ESRD (end stage renal disease): nephrology consulted for HD orders electrolytes stable tolerated full session of HD on 07/10 and 07/12 will follow up outpatient (3) DM2 (diabetes mellitus, type 2): diabetic diet Novolog SS monitor for hypoglycemia, sugars in 100's eating much better (4) Seizure disorder: as mentioned above will reduce Keppra to 1000mg daily with 250mg after HD no seizure activity during admission (5) HTN (hypertension): BP stable continue Norvasc, metoprolol (6) Respiratory failure: acute hypoxia, resolved after HD with UF (7) GERD (gastroesophageal reflux disease): continue PPI Subjective patient stable, no major issues over night for HD today eating okay, no chest pain, no dyspnea plans for d/c tomorrow, transportation issues today Review of Systems Review of Systems: All systems reviewed & are unremarkable except as noted in HPI & below Physical Exam Constitutional: WD/WN, vitals as above + overweight Eyes: PERRL, conjunctivae normal, anicteric sclerae ENMT: external ear and nose normal, oropharynx normal Neck: trachea midline, no thyromegaly Respiratory: normal respiratory effort, lungs clear to auscultation Auscultation: + diminished lung sounds (bases) Cardiovascular: RRR, no murmur, no edema Gastrointestinal (Abdomen): normal bowel sounds, soft, nontender, no hepatosplenomegaly Musculoskeletal: no cyanosis or clubbing, extremities motor strength 5/5 (bilateral AKA) Skin: no rashes, warm and dry + wound (left stump posteriorly) Neurologic: PERRL, EOMI, accommodation nl, no face palsy, no dysarthria Psychiatric: Orientation: alert, oriented to person, oriented to place, oriented to time and cooperative Eye Contact: good eye contact Results & Data Vital Signs (Past 12 Hours) Vital Signs Temp Pulse Pulse Resp BP Pulse Ox 07/12/19 11:49 36.7 C 69 18 154/79 H 95 07/12/19 07:40 36.7 C 67 18 106/62 90 07/12/19 03:32 36.5 C 63 16 106/67 97 Laboratory Results Laboratory Results - last 24 hr 07/11/19 07/11/19 07/12/19 16:28 20:06 07:47 POC Glucose 104 H 107 H 138 H 07/12/19 11:37 POC Glucose 112 H Medications Administered Current Inpatient Medications Acetaminophen (Tylenol) 650 mg PO Q4H PRN PRN Reason: Pain or Fever Stop: 08/07/19 22:29 Last Admin: 07/09/19 19:29 Dose: 650 mg Documented by: Amlodipine Besylate (Norvasc) 5 mg PO DAILY [facility] Stop: 08/08/19 08:59 Last Admin: 07/12/19 08:47 Dose: Not Given Documented by: Anastrozole (Arimidex) 1 mg PO DAILY HILARIO Stop: 08/08/19 08:59 Last Admin: 07/12/19 08:45 Dose: 1 mg Documented by: Atorvastatin Calcium (Lipitor) 20 mg PO HS [facility] Stop: 08/08/19 20:59 Last Admin: 07/11/19 20:50 Dose: 20 mg Documented by: Dextrose (Dextrose 50%) 25 - 50 ml IV UD PRN; Protocol PRN Reason: Hypoglycemia Protocol Stop: 08/07/19 23:29 Gabapentin (Neurontin) 300 mg PO QAM [facility] Stop: 08/09/19 08:59 Last Admin: 07/12/19 08:45 Dose: 300 mg Documented by: Glucagon (Glucagen) 1 mg SQ UD PRN; Protocol PRN Reason: Hypoglycemia Protocol Stop: 08/07/19 23:29 Glucose (Glucose 40%) 15 - 30 gm PO UD PRN; Protocol PRN Reason: Hypoglycemia Protocol Stop: 08/07/19 23:29 Glucose (Dex4 Glucose) 4 - 8 tabs PO UD PRN; Protocol PRN Reason: Hypoglycemia Protocol Stop: 08/07/19 23:29 Hydralazine HCl (Hydralazine Hcl) 10 mg IV Q6H PRN PRN Reason: SBP > 180, DBP > 110 Stop: 08/07/19 23:29 Last Admin: 07/08/19 23:33 Dose: 10 mg Documented by: Insulin Aspart (Novolog Flexpen) 0 units SC ACHS [facility] Stop: 08/08/19 16:29 Last Admin: 07/12/19 13:07 Dose: Not Given Documented by: Levetiracetam (Keppra) 1,000 mg PO QAM [facility] Stop: 08/09/19 08:59 Last Admin: 07/12/19 08:46 Dose: 1,000 mg Documented by: Levetiracetam (Keppra) 250 mg PO MoWeFr@1400 [facility] Stop: 08/09/19 14:59 Last Admin: 07/12/19 13:47 Dose: 250 mg Documented by: Metoclopramide HCl (Reglan) 5 mg PO TID [facility] Stop: 08/08/19 08:59 Last Admin: 07/12/19 13:47 Dose: 5 mg Documented by: Metoprolol Tartrate (Lopressor) 50 mg PO BID [facility] Stop: 08/07/19 22:59 Last Admin: 07/12/19 08:47 Dose: Not Given Documented by: Miscellaneous (Order Awaiting Action) 1 ea N/A QS [facility] Stop: 08/08/19 00:00 Last Admin: 07/12/19 08:48 Dose: Not Given Documented by: Miscellaneous (Carbohydrates For Hypoglycemia) 15 - 30 gm PO UD PRN PRN Reason: Hypoglycemia Treatment Stop: 08/07/19 23:29 Nystatin (Mycostatin) 1 appln EXT QSHIFT PRN PRN Reason: Affected Skin Folds Stop: 08/07/19 22:10 Ondansetron HCl (Zofran) 4 mg IV Q6H PRN PRN Reason: Nausea Stop: 08/07/19 22:29 Pantoprazole Sodium (Protonix) 40 mg PO DAILY [facility] Stop: 08/08/19 08:59 Last Admin: 07/12/19 08:45 Dose: 40 mg Documented by: Polyethylene Glycol (Miralax Powder Packet) 17 gm PO DAILY PRN PRN Reason: Constipation Stop: 08/07/19 22:29 Warfarin Sodium (Coumadin) 10 mg PO DAILY@1600 [facility] Stop: 08/08/19 15:59 PG Care Time/CCT Total # of Minutes Spent Total Time Spent with Patient: Total time spent is greater than 50% in coordination of care (as documented) at patient's floor/unit and/or counseling patient:
[2019-07-12] MEDS: ATORVASTATIN 20 MG TAB PO SCH (22:17)
[2019-07-13] MEDS: VELPHORO~ORDER AWAITING ACTION SCH ×2 (00:33→07:47)
[2019-07-13] MEDS: AMLODIPINE BESYLATE 5 MG TAB PO SCH (07:47)
[2019-07-13] MEDS: levETIRAcetam 500 MG TAB PO SCH (07:47)
[2019-07-13] MEDS: GABAPENTIN 300 MG CAP PO SCH (07:47)
[2019-07-13] MEDS: PANTOprazole 40 MG TAB PO SCH (07:47)
[2019-07-13] MEDS: METOPROLOL TARTRATE 50 MG TAB PO SCH (07:47)
[2019-07-13] MEDS: METOCLOPRAMIDE HCL 5 MG TABLET PO SCH (07:47)
[2019-07-13] MEDS: INSULIN ASPART 100 UNITS/ML 3 ML PEN SC SCH (07:55)
[2019-07-13] MEDS: ANASTROZOLE 1 MG TAB PO SCH (09:37)
--- NOTE | 2019-07-13 09:58 | Discharge Summary ---
Date of Service July 13, 2019 Admission HPI Per Admitting Provider 58-year-old female with history of seizure, DM 2, CKD on dialysis, hypertension, coronary artery disease, respiratory failure, history of DVTs and bilateral BKA's, GERD, peptic ulcer disease presents with altered mental status from outside hospital. Per records reviewed, had reported that patient was not her usual self this morning. While at dialysis 2 hours into her 4-hour session she was noted to be altered and transferred to the ED. There was questionable concern for seizure and possible postictal stage. Outside hospital had spoke to Dr. Mcnulty who is her dishroom attendant and patient was transferred to [facility]. When evaluated this evening patient responds to her name but is unable to state name, or date of . When asked about place and time she stares into space. She is however following some commands and I was able to do her portion of neuro exam with her. She also answers no to pain and review of system elements. She denied any fever, chills, headache, lightheadedness, chest pain, shortness of breath, abdominal pain, diarrhea, constipation, hematochezia, melena, hematuria, dysuria, increased urinary frequency. She reports yes to producing some urine There is no family member at this time. Phone number listed was contacted however no response was obtained. Principal Diagnosis Toxic encephalopathy due to Keppra and Gabapentin Discharge Exam Constitutional WD/WN, vitals as above + overweight Eyes PERRL, conjunctivae normal, anicteric sclerae ENMT external ear and nose normal, oropharynx normal Neck trachea midline, no thyromegaly Respiratory normal respiratory effort, lungs clear to auscultation Auscultation: + diminished lung sounds (bases) Cardiovascular RRR, no murmur, no edema Gastrointestinal (Abdomen) normal bowel sounds, soft, nontender, no hepatosplenomegaly Musculoskeletal no cyanosis or clubbing, extremities motor strength 5/5 (bilateral AKA) Skin no rashes, warm and dry + wound (left stump posteriorly) Neurologic PERRL, EOMI, accommodation nl, no face palsy, no dysarthria Psychiatric Orientation: alert, oriented to person, oriented to place, oriented to time and cooperative Eye Contact: good eye contact Discharge Data Allergies Allergy/AdvReac Type Severity Reaction Status Date / Time Aminoglycosides Allergy Unknown Verified 07/08/19 22:17 ciprofloxacin Allergy Unknown Verified 07/08/19 22:17 doxycycline Allergy Unknown Verified 07/08/19 22:17 ertapenem Allergy Unknown Verified 07/08/19 22:17 gentamicin Allergy Unknown Verified 07/08/19 22:17 morphine Allergy Unknown Verified 07/08/19 22:17 quinacrine Allergy Unknown Verified 07/08/19 22:17 Quinolones Allergy Unknown Verified 07/08/19 22:17 Tetracyclines Allergy Unknown Verified 07/08/19 22:17 tramadol Allergy Unknown Verified 07/08/19 22:17 vancomycin AdvReac Unknown Unknown Verified 07/08/19 22:17 codeine AdvReac Unknown Verified 07/08/19 22:17 Consultations 07/08/19 22:24 Consult Nephrology Routine Consult Neurology Routine 07/09/19 06:51 Consult Cardiology Routine Ordered Studies 07/09/19 01:52 MR brain wo con Urgent Hospital Course (1) Toxic encephalopathy: improved the past five days d/w Dr. Dallas on admission, most logical explanation would be inappropriate dosing of Keppra and Gabapentin continue decreased Keppra at 1000mg daily with extra 250mg after HD continue decreased Gabapentin at 300mg qAM with 100mg after HD sessions will hold Oxycodone (patient says she rarely takes at home) no evidence of stroke on MRI, neurology does not feel the imaging represents NPH alert and oriented x 3 for four days, will d/c home on 07/13 once transportation available (2) ESRD (end stage renal disease): nephrology consulted for HD orders electrolytes stable tolerated full session of HD on 07/10 and 07/12 will follow up outpatient on Sunday 07/15 (3) DM2 (diabetes mellitus, type 2): diabetic diet Novolog monitor for hypoglycemia, sugars in 100's eating much better (4) Seizure disorder: as mentioned above will reduce Keppra to 1000mg daily with 250mg after HD no seizure activity during admission (5) HTN (hypertension): BP stable continue Norvasc, metoprolol (6) Respiratory failure: acute hypoxia, resolved after HD with UF (7) GERD (gastroesophageal reflux disease): continue PPI Total Time Total Time Spent Total Time Spent (In Minutes): 20 minutes Total Time Includes: Examination of the Patient, Discharge Planning and Medication Reconciliation Discharge Plan Discharge Items Patient Disposition: Home - Self-Care Reason For Visit: AMS Discharge Diagnosis: Toxic encephalopathy due to Keppra and Gabapentin ESRD on hemodialysis Condition on Discharge: Good Goals: follow mental status on adjusted dosing of medications Activity: Resume your previous activity Non-emergency contact: Primary Care Provider and Technical Account Representative Call non-emergency contact if: you have any medication questions, your symptoms worsen, your pain is not controlled and you have a fever Follow-up/Referrals: Dr. Harika Fisher [Other] (Please, follow up with Dr. Harika Marr. *A nurse from this office will call you to coordinate the home visit. If you have any questions, call her office at [phone].) Diet: Carb Consistent or DM2 and Dialysis Renal Addtl Attending Provider Instructions: Medications: note the following changes - KEPPRA: previously taking 1000mg twice a day, this is too high for dialysis, dose changed to 1000mg in the morning, on dialysis days you will take 250mg in the afternoon - GABAPENTIN: dose reduced to 300mg only in the morning, on dialysis days you will take an extra 100mg in the afternoon - NYSTATIN POWDER: apply to rash on inguinal folds twice a day for 10 days Toxic encephalopathy due to medications mental status improved greatly by reducing dosing of Keppra and Gabapentin no evidence for infection MRI brain without any evidence of stroke no seizure activity evaluated by neurologist, recommended the dose change to Keppra and Gabapentin FOLLOW UP - report for hemodialysis on Monday - follow up with primary care doctor in one week, call for appt Pending Studies at Discharge: No Stand-Alone Forms: My uromovie, Smoking Cessation Medications and DC Order Prescriptions: New levetiracetam [Keppra] 500 mg Tablet 1,000 mg PO QAM 30 Days Qty: 60 RF: 3 levetiracetam [Keppra] 250 mg Tablet 250 mg PO MoWeFr@1400 30 Days Qty: 30 RF: 3 gabapentin 300 mg Capsule 300 mg PO QAM 30 Days Qty: 30 RF: 2 gabapentin 100 mg capsule 100 mg PO .MWF 30 Days Qty: 30 RF: 3 nystatin [Nystop] 100,000 unit/gram Powder 1 applic EXT QSHIFT PRN (Reason: rash) 10 Days Qty: 60 RF: 1 Continued anastrozole 1 mg tablet 1 mg PO DAILY RF: 0 meclizine 12.5 mg tablet 12.5 mg PO Q6 RF: 0 amlodipine 5 mg tablet 5 mg PO DAILY RF: 0 oxycodone-acetaminophen 10-325 mg tablet 10 - 325 tab PO Q6 RF: 0 warfarin [Coumadin] 5 mg tablet 10 mg PO DAILY RF: 0 metoprolol tartrate 50 mg tablet 50 mg PO BID RF: 0 ondansetron 4 mg tablet,disintegrating 4 mg PO QID PRN (Reason: Nausea) RF: 0 levocetirizine 5 mg tablet 5 mg PO HS RF: 0 Dexilant 60 mg capsule,biphase delayed releas 60 mg PO DAILY RF: 0 Dialyvite [id number] ro-to-iaz-mg tablet 1 tab PO DAILY RF: 0 Velphoro 500 mg tablet,chewable 500 mg PO DAILYBD RF: 0 B complex 81-[id number]-G-biot-zinc 1 tab PO DAILY RF: 0 atorvastatin [Lipitor] 20 mg Tablet 20 mg PO HS RF: 0 insulin lispro [Humalog U-100 Insulin] 100 unit/mL Solution See Rx Instructions .ROUTE .COMPLEX RF: 0 fluoxetine 20 mg Capsule 20 mg PO DAILY RF: 0 metoclopramide HCl 5 mg PO TID RF: 0 Discontinued levetiracetam 500 mg tablet extended release 24 hr 1,000 mg PO BID RF: 0 gabapentin 600 mg tablet 600 mg PO TID RF: 0 Discharge Orders: Discharge Order (Routine); Ordered 07/13/19 Ordered By: Juancarlos Méndez Admission Data Admit Date/Time: 07/08/19 21:26 Attending Provider: Juancarlos Méndez Admit Provider: Juancarlos Méndez Primary Care Provider: Harika Marr Other Providers: Medina Arciniega ; Ame Dallas ; Addison Grajeda Other Interventions: Discharge Summary Assessment (RN) Last Done: 07/11/19 13:09
--- NOTE | 2019-07-13 10:51 | Nephrology Progress Note ---
Date of Service July 13, 2019 Assessment & Plan (1) ESRD (end stage renal disease): End-stage renal disease on hemodialysis Monday, Monday, Monday via right upper extremity AV fistula. Admitted with change in mental status changes. Improved following adjustment in Keppra, Gabapentin and pain medication -- Volume status and electrolyte balance are acceptable at this time. 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 Keppra and Gabapentin doses have been adjusted (4) DM2 (diabetes mellitus, type 2): (5) Hx of BKA: Subjective Mrs. Lieberman was seen & examined in her hospital room this morning. She was A&O x3. She was last dialyzed Monday without complication. Mrs. Lieberman indicates that she would like to return home and resume outpatient HD at [facility] Review of Systems Constitutional: no fever and no chills Eyes: no worsening vision and no problem reported Ear, Nose, Mouth, Throat: no problem reported Respiratory: no cough and no dyspnea Cardiovascular: no chest pain and no palpitations Gastrointestinal: no abdominal pain, no nausea, no vomiting and no diarrhea/loose stools Genitourinary: no dysuria and no hematuria Musculoskeletal: no back pain Integumentary: no rash Physical Exam Constitutional: + overweight; not in distress Eyes: PERRL, conjunctivae normal, anicteric sclerae ENMT: external ear and nose normal, oropharynx normal Neck: trachea midline, no thyromegaly Respiratory: normal respiratory effort, lungs clear to auscultation Cardiovascular: Rate/Rhythm: regular rate and regular rhythm Extremities: + AV fistula (+ bruit) Gastrointestinal (Abdomen): normal bowel sounds, soft, nontender, no hepatosplenomegaly Musculoskeletal: Extremities: no cyanosis Skin: no rashes, warm and dry Neurologic: awake; not confused Results & Data Vital Signs (Past 12 Hours) Vital Signs Temp Pulse Pulse Pulse Pulse Resp BP 07/13/19 10:00 36.8 C 73 67 65 18 133/72 07/13/19 07:22 36.8 C 67 18 133/72 07/13/19 07:15 69 07/13/19 04:28 36.8 C 65 18 134/75 07/12/19 23:39 36.5 C 65 18 107/62 Pulse Ox 07/13/19 10:00 100 07/13/19 07:22 100 07/13/19 07:15 07/13/19 04:28 98 07/12/19 23:39 99 PG Care Time/CCT Total # of Minutes Spent Total Time Spent with Patient: Total time spent is greater than 50% in coordination of care (as documented) at patient's floor/unit and/or counseling patient:
== END 2019-07-13 11:50 | disposition home or self-care (01) | DRG 91 ==
LOC: 2W 21:26

== ENCOUNTER 2019-07-18 18:54 | Inpatient (IN) ==
[2019-07-18] MEDS ORDERED: ALUMINUM/MAGNESIUM SUSP 30 ML UDC PO PRN (23:43)
[2019-07-18] MEDS ORDERED: ACETAMINOPHEN 325 MG TAB PO PRN (23:43)
[2019-07-18] MEDS ORDERED: ONDANSETRON INJ 2 MG/ML 2 ML VIAL IV PRN (23:43)
[2019-07-18] MEDS ORDERED: MAGNESIUM HYDROXIDE SUSP 30 ML UDC PO PRN (23:43)
[2019-07-18] MEDS ORDERED: GLUCOSE 40% GEL 15 GM TUBE PO PRN (23:48)
[2019-07-18] MEDS ORDERED: CARBOHYDRATES FOR HYPOGLYCEMIA PO PRN (23:48)
[2019-07-18] MEDS ORDERED: GLUCAGON FOR INJ 1 MG VIAL SQ PRN (23:48)
[2019-07-18] MEDS ORDERED: GLUCOSE 10 TABS/TUBE PO PRN (23:48)
--- NOTE | 2019-07-19 00:07 | History & Physical Report ---
Date of Service July 19, 2019 Assessment & Plan (1) Confusion: Patient is a 58yo F PMH ESRD on dialysis, HTN, T2DM, CAD, h/o DVTs, bilateral AKA, GERD, PUD, directly admitted from OSH for confusion. Confusion -Patient alert and oriented to place, person, not year -Possible this is related to oxycodone use; she states she does not take a lot of this; some toxic encephalopathy and need for dialysis -Monitor overnight; dialysis in morning ESRD -Dialysis MWF; has not missed sessions since prev discharge -Consult nephro; appreciate recs T2DM -A1c 07/08 of 5.7 -ISS, BSG ACHS Seizure d/o -Meds adjusted after discharge on 07/13 -Keppra 1000 daily, 250mg post dialysis -Gabapentin 300mg qAM, 100mg after dialysis HTN -Cont norvasc and metoprolol H/o DVT -Cont daily coumadin h/o BRCA -Cont home med Sacral, breast, pannus wounds -Consult WOCN -Concern that may not have sufficient resources to care for pt at home -Will consult CM Code: Full per prev admission; pt unable to answer question at this time Dispo: admit to med/surg DVTP: cont warfarin (2) ESRD (end stage renal disease): (3) HTN (hypertension): (4) S/P bilateral above knee amputation: (5) Seizure disorder: (6) DM2 (diabetes mellitus, type 2): History of Present Illness Chief Complaint: confusion Primary Care Provider: Harika Adrianna Oscar Marr Patient is a 58yo F PMH ESRD on dialysis, HTN, T2DM, CAD, h/o DVTs, bilateral AKA, GERD, PUD, directly admitted from OSH for confusion. Patient unable to provide history aside from the fact that her called EMS for no reason, and that she did not want to be transferred to [facility]. Patient recently admitted 07/08/19-07/13/19 at this facility for toxic encephalopathy. HPI otherwise provided by [facility] ER notes. did not present with pt to OSH or [facility]. Patient states she did take her pain medication earlier in the day and notes that it did cause her to be drowsy. At OSH she was noted to have dried feces on her inner thighs bilaterally as well as several seeping wounds on pannus, under breast, on coccyx. Pt still makes some urine, therefore a urine sample was obtained which revealed 3+ protein, 1+ bili, 2+leuk, neg nitrites, 3+ blood. She was given a dose of bactrim at OSH. Patient denies UTI symptoms today/recently. CXR at OSH revealed chronic pulmonary venous congestion, no evidence of consolidation. Significant labwork at OSH: WBC 14K, rapid flu negative, lactate 0.8, INR 2.45. Allergies Allergy/AdvReac Type Severity Reaction Status Date / Time Aminoglycosides Allergy Unknown Verified 07/08/19 22:17 ciprofloxacin Allergy Unknown Verified 07/08/19 22:17 doxycycline Allergy Unknown Verified 07/08/19 22:17 ertapenem Allergy Unknown Verified 07/08/19 22:17 gentamicin Allergy Unknown Verified 07/08/19 22:17 morphine Allergy Unknown Verified 07/08/19 22:17 quinacrine Allergy Unknown Verified 07/08/19 22:17 Quinolones Allergy Unknown Verified 07/08/19 22:17 Tetracyclines Allergy Unknown Verified 07/08/19 22:17 tramadol Allergy Unknown Verified 07/08/19 22:17 vancomycin AdvReac Unknown Unknown Verified 07/08/19 22:17 codeine AdvReac Unknown Verified 07/08/19 22:17 Home Medications Home Medications Medication Instructions Recorded Confirmed Type B complex 29-[id number]-biot-zinc 1 tab PO DAILY 07/08/19 07/08/19 History Dexilant 60 mg PO DAILY 07/08/19 07/08/19 History Dialyvite 1 tab PO DAILY 07/08/19 07/08/19 History Velphoro 500 mg PO DAILYBD 07/08/19 07/08/19 History amlodipine 5 mg PO DAILY 07/08/19 07/08/19 History anastrozole 1 mg PO DAILY 07/08/19 07/08/19 History atorvastatin [Lipitor] 20 mg PO HS 07/08/19 07/08/19 History fluoxetine 20 mg PO DAILY 07/08/19 07/08/19 History insulin lispro [Humalog U-100 See Rx Instructions .ROUTE .COMPLEX 07/08/19 07/08/19 History Insulin] levocetirizine 5 mg PO HS 07/08/19 07/08/19 History meclizine 12.5 mg PO Q6 07/08/19 07/08/19 History metoclopramide HCl 5 mg PO TID 07/08/19 07/08/19 History metoprolol tartrate 50 mg PO BID 07/08/19 07/08/19 History ondansetron 4 mg PO QID PRN 07/08/19 07/08/19 History oxycodone-acetaminophen 10 - 325 tab PO Q6 07/08/19 07/08/19 History warfarin [Coumadin] 10 mg PO DAILY 07/08/19 07/08/19 History gabapentin 100 mg PO .MWF 30 Days #30 cap 07/11/19 Rx gabapentin 300 mg PO QAM 30 Days #30 cap 07/11/19 Rx levetiracetam [Keppra] 1,000 mg PO QAM 30 Days #60 tab 07/11/19 Rx levetiracetam [Keppra] 250 mg PO MoWeFr@1400 30 Days #30 07/11/19 Rx tab nystatin [Nystop] 1 applic EXT QSHIFT PRN 10 Days 07/11/19 Rx #60 gm Past Med/Surg History Medical History DM2 (diabetes mellitus, type 2) DVT (deep venous thrombosis) ESRD (end stage renal disease) GERD (gastroesophageal reflux disease) HTN (hypertension) Seizure disorder Surgical History S/P bilateral above knee amputation Social History Preferred Language: Turkish Communication Ability: Effective 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 Beliefs That Will Affect Care: None Current Living Situation: Spouse Current Living Situation Comment: home with spouse per EMT Feels Safe at Home: Yes Smoking Status: Current every day smoker Tobacco Type: cigarettes ; Cigarettes Per Day: 10 ; Tobacco Cessation Education Requested by Patient: No Hx Alcohol Use: No Hx Substance Use: No Review of Systems Review of Systems: All systems reviewed & are unremarkable except as noted in HPI & below Constitutional: + fatigue and + malaise; no fever and no body aches Respiratory: no cough and no dyspnea Cardiovascular: no chest pain Gastrointestinal: no abdominal pain, no nausea and no vomiting Genitourinary: no dysuria, no urinary frequency, no urinary hesitancy and no urinary urgency Integumentary: no rash Physical Exam Constitutional: WD/WN, vitals as above + morbidly obese and + physical limitations Eyes: PERRL, conjunctivae normal, anicteric sclerae ENMT: external ear and nose normal, oropharynx normal Mouth: + oral mucosal abnormality (dry mucous membranes) Neck: normal visual inspection Respiratory: normal respiratory effort, lungs clear to auscultation Auscultation: + diminished lung sounds Cardiovascular: RRR, no murmur, no edema Gastrointestinal (Abdomen): normal bowel sounds, soft, nontender, no hepatosplenomegaly Musculoskeletal: Extremities: + extremities abnormal to inspection (Above knee amputation bilaterally) Skin: + turgor decreased and + wound (sacral ulcers, intertrigo beneath breasts, pannus wounds) Neurologic: PERRL, EOMI, accommodation nl, no face palsy, no dysarthria Psychiatric: Orientation: alert; + not oriented x 3 (oriented to place, person, day) Results & Data Vital Signs (Past 12 Hours) Vital Signs Temp Pulse Resp BP Pulse Ox 07/18/19 22:55 97.7 F 72 18 137/74 91 Code Status & VTE Plan Code Status full per previous admission; pt unable to provide answer at this time Supervising Physician Co-Signing Physician Notes Patient was seen and examined by me personally. I reviewed the chart, the orders and discussed the case in detail with Dr. Nakia Bush MD . I read this H&P and agree with its contents to entirety. Resident Activity Tracking Resident Involvement: Resident Care Provided Care Provided: Adult Hospital Medicine
[2019-07-19] MEDS: NYSTATIN POWDER 15GM BTL EXT PRN (01:15)
--- NOTE | 2019-07-19 01:37 | Billing Data ---
Coding Level of Care Code 53244 Initial Inpt Care Lvl 2
[2019-07-19] MEDS ORDERED: SODIUM CHLORIDE 0.9% 1000ML 1,000 ML IV PRN (08:04)
[2019-07-19] MEDS: INSULIN ASPART 100 UNITS/ML 3 ML PEN SC SCH ×4 (09:07→20:46)
[2019-07-19] MEDS: VITAMIN B COMPLEX TAB PO SCH (09:09)
[2019-07-19] MEDS: GABAPENTIN 300 MG CAP PO SCH (09:09)
[2019-07-19] MEDS: levETIRAcetam 500 MG TAB PO SCH (09:09)
[2019-07-19] MEDS: ANASTROZOLE 1 MG TAB PO SCH (09:09)
[2019-07-19] MEDS: AMLODIPINE BESYLATE 5 MG TAB PO SCH (09:10)
[2019-07-19] MEDS: FLUOXETINE HCL 20 MG CAP PO SCH (09:10)
[2019-07-19] MEDS: METOPROLOL TARTRATE 50 MG TAB PO SCH ×2 (09:11→20:05)
[2019-07-19] MEDS: INSULIN GLARGINE SOLOSTAR 100 UNITS/ML 3 ML PEN SC SCH ×2 (09:12→20:45)
--- NOTE | 2019-07-19 09:38 | XRay Report ---
XR chest 1V portable HISTORY: 58 years-old Female rhonchi COMPARISON: Chest radiograph 07/08/2019 TECHNIQUE: Portable AP view of the chest FINDINGS: Cardiac silhouette is enlarged, unchanged. Mild right hemidiaphragmatic elevation. Small right pleura l effusion. Patchy bibasilar and right midlung opacities are noted. Asymmetric opacity of the right h ilum. Degenerative changes of the shoulders and spine. IMPRESSION: 1. Patchy right midlung and right greater than left bibasilar opacities suspicious for pneumonia. 2. Ill-defined opacity of the right hilum may reflect underlying lesion or adenopathy. Further evalua tion with CT of the chest recommended. 3. Small right pleural effusion. The above report was generated using voice recognition software. It may contain grammatical, syntax o r spelling errors. Electronically signed by: Elvin Coker M.D. 07/19/2019 9:37 AM
[2019-07-19 09:55] LABS: Hematocrit (blood only) 31.7 % (37-47); Hemoglobin 9.5 g/dL (12.0-16.0); Mean Corpuscular Hemoglobin 27.5 pg (25-34); Mean Corpuscular Volume 91.9 fL (80-100); Mean Platelet Volume 8.7 fL (7.4-10.4); Platelet Count 260 K/uL (130-400); RDW Standard Deviation 51.1 fL (36.4-46.3); Red Blood Count 3.45 M/uL (4.2-5.4); White Blood Count 13.78 K/uL (4.8-10.8)
[2019-07-19 10:15] LABS: Blood Urea Nitrogen 14 mg/dl (7-18); Calcium 8.1 mg/dl (8.5-10.1); Carbon Dioxide 34 mmol/L (21-32); Chloride 100 mmol/L (98-107); Est GFR (African American) 21.1; Est GFR (Non-African American) 18.2; Glucose 98 mg/dl (70-99); Potassium 3.3 mmol/L (3.5-5.1); Sodium 138 mmol/L (136-145)
[2019-07-19 10:29] LABS: iSTAT Arterial Blood Gas HCO3 34 meg/L (19-24); iSTAT Arterial Blood Gas pCO2 52 mmHg (35-46); iSTAT Arterial Blood Gas pH 7.42 (7.35-7.45); iSTAT Arterial Blood Gas pO2 66 mmHg (80-95); iSTAT Carbon Dioxide 35 mEq/l (24-31); iSTAT Site L Brachial
[2019-07-19] MEDS ORDERED: CEFEPIME 2,000 MG in SYRINGE 7.5 ML IV ONE (10:30)
--- NOTE | 2019-07-19 12:47 | CT Scan Report ---
CT chest wo con CT DOSE: 652.63 mGycm HISTORY: Dyspnea hypoxia TECHNIQUE: Multiaxial CT images of the chest were performed without contrast. A dose lowering techni que was utilized adhering to the principles of ALARA. COMPARISON: Chest series same date FINDINGS: Normal caliber thoracic aorta. No significant mediastinal adenopathy. Septated right pleural effusion. Right lower lobe atelectatic change. Slight fullness of the right hi lum which may be vascular. Adenopathy is not excluded. Differential is impossible given absence of contrast enhancement. Small left effusion. Limited evaluation of the upper abdomen is unremarkable. IMPRESSION: 1. Bilateral pleural effusions with the right larger than the left. 2. Superimposed right basilar and/or right lower lobe atelectatic/volume loss status change. 3. Small superimposed right basilar infiltrate. 4. Fullness of the right hilum which may simply be secondary to vascular shadows although adenopathy is not completely excluded due to the absence of contrast enhancement. 5. Small left effusion with associated left basilar atelectatic change. The above report was generated using voice recognition software. It may contain grammatical, syntax or spelling errors. Electronically signed by: Mauro Salcido M.D. 07/19/2019 12:45 PM
[2019-07-19] MEDS: PATIENT'S HEIGHT NEEDED SCH ×2 (14:55→14:56)
[2019-07-19] MEDS: methylPREDNISolone 40 MG in SYRINGE 0 ML IV SCH (14:56)
[2019-07-19 15:01] LABS: INR 3.2 (0.9-1.1); Prothrombin Time 30.6 Seconds (9.0-12.0)
[2019-07-19 15:28] LABS: Hepatitis B Surface Ab Quant < 3.10 mIU/mL (>or=10mIU/mL Immune); Hepatitis B Surface Antibody Non-Immune
[2019-07-19 15:39] LABS: Hepatitis B Surface Antigen Neg (Neg)
--- NOTE | 2019-07-19 16:11 | Nephrology Consultation ---
Date of Consultation July 19, 2019 Assessment & Plan (1) ESRD (end stage renal disease): Outpatient Rx MWF 3h 45m. Qb 450 via AVF. Qd 800. 2K bath. EDW 95 kg. Orders for dialysis today were entered into the EMR and discussed with the dialysis nurse canceling and cutting control clerk. Medications are reasonably dosed for kidney function. I cannot exclude that some of her mental status changes may not be related to medications. I would defer to neurology in adjustment given the patient's history of seizure disorder. I certainly think it would be appropriate to wean opiates as tolerated. Joslyn has associated chronic stable anemia of CKD and hyperparathyroidism with hyperphosphatemia. She is on an appropriate renal diet. Velphoro may be held while inpatient. Heparin held with dialysis as she is adequately anticoagulated with warfarin. Joslyn has been started on treatment for suspected UTI. Given her multiple admissions and declining functional status, a serious consideration regarding her ability to safely return home under her 's care needs to be addressed. (2) HTN (hypertension): (3) Seizure disorder: (4) DM2 (diabetes mellitus, type 2): History of Present Illness Attending Physician: Frank Rice History of Present Illness Joslyn is a 58-year-old female with ESRD seen in consultation regarding dialysis management. I follow Joslyn at the [facility] dialysis clinic in [facility]. Joslyn is on IHD MWF for 3 hrs 45 minutes with a 180 optiflux and Qb 450. She tolerates dialysis reasonably well but unfortunately overall functional status has been declining over the past several months. Joslyn is notably limited at baseline due to her obesity and history of BL AKA. She lives at home with her who serves as her primary caregiver. She has BLS transport via liter for dialysis. She was admitted to [facility] last month with acute mental status changes during her dialysis treatment. The patient presented for dialysis alert and oriented and during the procedure became acutely encephalopathic/minimally responsive. She was hemodynamically stable with adequate BP and pulse throughout. The patient was transferred to [facility] and then trans ferred to [facility]. Neurologic evaluation was completed and the working diagnosis thought to be overmedication. Keppra, gabapentin doses were reduced. Unfortunately, Joslyn has continued to struggle with lethargy and mental status changes at home. She was found to be appropriate during dialysis on Monday but the patient's was having considerable difficulty orienting Joslyn later in the day. He also noted episodes of unresponsiveness. The patient was brought back to the hospital for additional evaluation. This morning, Joslyn was awake but not conversational. She was slow to respond. An ABG was being drawn at the time of my initial assessment. Dialysis orders were entered and communicated to the patient and the nurse. Joslyn was admitted to the hospital in May with sepsis due to a UTI. She had presented with weakness and mental status changes. Medical history is notable for prior DVT, PVD, BL AKA, DMII, paroxysmal atrial fibrillation, history of breast cancer, seizure disorder, ESRD attributed to diabetic nephropathy. Allergies Allergy/AdvReac Type Severity Reaction Status Date / Time Aminoglycosides Allergy Unknown Verified 07/08/19 22:17 ciprofloxacin Allergy Unknown Verified 07/08/19 22:17 doxycycline Allergy Unknown Verified 07/08/19 22:17 ertapenem Allergy Unknown Verified 07/08/19 22:17 gentamicin Allergy Unknown Verified 07/08/19 22:17 morphine Allergy Unknown Verified 07/08/19 22:17 quinacrine Allergy Unknown Verified 07/08/19 22:17 Quinolones Allergy Unknown Verified 07/08/19 22:17 Tetracyclines Allergy Unknown Verified 07/08/19 22:17 tramadol Allergy Unknown Verified 07/08/19 22:17 vancomycin AdvReac Unknown Unknown Verified 07/08/19 22:17 codeine AdvReac Unknown Verified 07/08/19 22:17 Home Medications Home Medications Medication Instructions Recorded Confirmed Type B complex [id number] 1 tab PO DAILY 07/08/19 07/08/19 History Dexilant 60 mg PO DAILY 07/08/19 07/08/19 History Dialyvite 1 tab PO DAILY 07/08/19 07/08/19 History Velphoro 500 mg PO DAILYBD 07/08/19 07/08/19 History amlodipine 5 mg PO DAILY 07/08/19 07/08/19 History anastrozole 1 mg PO DAILY 07/08/19 07/08/19 History atorvastatin [Lipitor] 20 mg PO HS 07/08/19 07/08/19 History fluoxetine 20 mg PO DAILY 07/08/19 07/08/19 History insulin lispro [Humalog U-100 See Rx Instructions .ROUTE .COMPLEX 07/08/19 07/08/19 History Insulin] levocetirizine 5 mg PO HS 07/08/19 07/08/19 History meclizine 12.5 mg PO Q6 07/08/19 07/08/19 History metoclopramide HCl 5 mg PO TID 07/08/19 07/08/19 History metoprolol tartrate 50 mg PO BID 07/08/19 07/08/19 History ondansetron 4 mg PO QID PRN 07/08/19 07/08/19 History oxycodone-acetaminophen 10 - 325 tab PO Q6 07/08/19 07/08/19 History warfarin [Coumadin] 10 mg PO DAILY 07/08/19 07/08/19 History gabapentin 100 mg PO .MWF 30 Days #30 cap 07/11/19 Rx gabapentin 300 mg PO QAM 30 Days #30 cap 07/11/19 Rx levetiracetam [Keppra] 1,000 mg PO QAM 30 Days #60 tab 07/11/19 Rx levetiracetam [Keppra] 250 mg PO MoWeFr@1400 30 Days #30 07/11/19 Rx tab nystatin [Nystop] 1 applic EXT QSHIFT PRN 10 Days 07/11/19 Rx #60 gm Patient History Medical History DM2 (diabetes mellitus, type 2) DVT (deep venous thrombosis) ESRD (end stage renal disease) GERD (gastroesophageal reflux disease) HTN (hypertension) Seizure disorder Surgical History S/P bilateral above knee amputation Social History Preferred Language: [place] Communication Ability: 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 Beliefs That Will Affect Care: None Current Living Situation: Spouse Current Living Situation Comment: home with spouse per EMT Feels Safe at Home: Yes Smoking Status: Current every day smoker Tobacco Type: cigarettes ; Cigarettes Per Day: 10 ; Tobacco Cessation Education Requested by Patient: No Hx Alcohol Use: No Hx Substance Use: No Review of Systems Review of Systems: All systems reviewed & are unremarkable except as noted in HPI & below Physical Exam Constitutional: well developed and + morbidly obese Eyes: + anicteric sclerae; no conjunctival abnormality ENMT: Mouth: no oral mucosal abnormality and oral mucous membranes not dry Neck: normal visual inspection, trachea midline and + thick neck Respiratory: normal respiratory effort Auscultation: + diminished lung sounds and + rales Cardiovascular: Rate/Rhythm: regular rate Heart Sounds: normal S1, normal S2 and + murmur Vessels: no JVD Extremities: + AV fistula; no edema Chest (Breasts): Additional Comments: surgical scar from mastectomy Gastrointestinal (Abdomen): Percussion/Palpation: abdomen soft; abdomen nontender Musculoskeletal: Extremities: no cyanosis and no clubbing BL AKA Skin: normal turgor; no lesions Neurologic: Motor/Sensory: no tremor and no asterixis Psychiatric: Orientation: alert and oriented x 3 Results & Data Vital Signs (Past 12 Hours) Vital Signs Temp Pulse Pulse Pulse Resp BP BP 07/19/19 15:40 62 126/49 L 07/19/19 15:20 65 139/45 L 07/19/19 15:00 59 L 115/57 L 07/19/19 14:40 56 L 98/45 L 07/19/19 14:08 36.7 C 62 07/19/19 07:17 37.4 C 76 16 109/50 L Pulse Ox 07/19/19 15:40 07/19/19 15:20 07/19/19 15:00 07/19/19 14:40 07/19/19 14:08 07/19/19 07:17 89 L Laboratory Results Laboratory Results - last 24 hr 07/19/19 07/19/19 07/19/19 07:56 09:29 09:29 WBC 13.78 H RBC 3.45 L Hgb 9.5 L Hct 31.7 L MCV 91.9 MCH 27.5 MCHC 30.0 L RDW Std Deviation 51.1 H RDW Coeff of Shaq 15.0 H Plt Count 260 MPV 8.7 PT INR Sample Site POC pH POC pCO2 POC pO2 POC HCO3 POC Total CO2 POC Base Excess POC ABG O2 Sat Brayden Test O2 Delivery Device Sodium 138 Potassium 3.3 L Chloride 100 Carbon Dioxide 34 H Anion Gap 4.0 BUN 14 Creatinine 2.73 H Est Cr Clr Drug Dosing Not Reportable Est GFR ( Amer) 21.1 Est GFR (Non-Af Amer) 18.2 BUN/Creatinine Ratio 5.0 L Glucose 98 POC Glucose 110 H Calcium 8.1 L Procalcitonin Nasal Screen MRSA (PCR) Hep Bs Antigen Hep Bs Antibody Hep Bs Antibody, Quant 07/19/19 07/19/19 07/19/19 10:13 14:32 14:34 WBC RBC Hgb Hct MCV MCH MCHC RDW Std Deviation RDW Coeff of Shaq Plt Count MPV PT 30.6 H INR 3.2 H Sample Site L Brachial POC pH 7.42 POC pCO2 52 H POC pO2 66 L POC HCO3 34 H POC Total CO2 35 H POC Base Excess 9.0 H POC ABG O2 Sat 93.0 Brayden Test NA O2 Delivery Device SimpleMask Sodium Potassium Chloride Carbon Dioxide Anion Gap BUN Creatinine Est Cr Clr Drug Dosing Est GFR ( Amer) Est GFR (Non-Af Amer) BUN/Creatinine Ratio Glucose POC Glucose Calcium Procalcitonin 0.64 H Nasal Screen MRSA (PCR) Hep Bs Antigen Hep Bs Antibody Hep Bs Antibody, Quant 07/19/19 07/19/19 14:34 Unknown WBC RBC Hgb Hct MCV MCH MCHC RDW Std Deviation RDW Coeff of Shaq Plt Count MPV PT INR Sample Site POC pH POC pCO2 POC pO2 POC HCO3 POC Total CO2 POC Base Excess POC ABG O2 Sat Brayden Test O2 Delivery Device Sodium Potassium Chloride Carbon Dioxide Anion Gap BUN Creatinine Est Cr Clr Drug Dosing Est GFR ( Amer) Est GFR (Non-Af Amer) BUN/Creatinine Ratio Glucose POC Glucose Calcium Procalcitonin Nasal Screen MRSA (PCR) Negative Hep Bs Antigen Neg Hep Bs Antibody Non-Immune Hep Bs Antibody, Quant < 3.10 L PG Care Time/CCT Total # of Minutes Spent Total Time Spent with Patient: Total time spent is greater than 50% in coordination of care (as documented) at patient's floor/unit and/or counseling patient:
[2019-07-19] MEDS: GABAPENTIN 100 MG CAP PO SCH (18:11)
[2019-07-19] MEDS: levETIRAcetam 250 MG TAB PO SCH (18:11)
[2019-07-19] MEDS: WARFARIN SOD 10 MG TAB PO SCH (18:12)
[2019-07-19] MEDS: ATORVASTATIN 20 MG TAB PO SCH (20:04)
--- NOTE | 2019-07-19 22:43 | Hospitalist Progress Note ---
Date of Service July 19, 2019 Assessment & Plan (1) Confusion: Patient is a 58yo F PMH ESRD on dialysis, HTN, T2DM, CAD, h/o DVTs, bilateral AKA, GERD, PUD, directly admitted from OSH for confusion. Confusion -Patient alert and oriented to place, person, not year -concern that this may be secondary to CO2 retention, obstructive sleep apnea. -may consider neurology consult for further input -will consider pulse ox -Possible this is related to oxycodone use; she states she does not take a lot of this; some toxic encephalopathy and need for dialysis -Monitor overnight; dialysis in morning ESRD -Dialysis MWF; has not missed sessions since prev discharge -Consult nephro; appreciate recs T2DM -A1c 07/08 of 5.7 -ISS, BSG ACHS Seizure d/o -Meds adjusted after discharge on 07/13 -Keppra 1000 daily, 250mg post dialysis -Gabapentin 300mg qAM, 100mg after dialysis HTN -Cont norvasc and metoprolol H/o DVT -Cont daily coumadin h/o BRCA -Cont home med Sacral, breast, pannus wounds -Consult WOCN -Concern that may not have sufficient resources to care for pt at home -Will consult CM Code: Full per prev admission; pt unable to answer question at this time Dispo: admit to med/surg DVTP: cont warfarin (2) ESRD (end stage renal disease): (3) HTN (hypertension): (4) S/P bilateral above knee amputation: (5) Seizure disorder: (6) DM2 (diabetes mellitus, type 2): Subjective Patient is lethargic and not able to provide signifcant history. Review of Systems Review of Systems: Unobtainable due to reduced consciousness Physical Exam Physical Exam: Constitutional: WD/WN, vitals as above + morbidly obese and + physical limitations Eyes: PERRL, conjunctivae normal, anicteric sclerae ENMT: external ear and nose normal, oropharynx normal Mouth: + oral mucosal abnormality (dry mucous membranes) Neck: normal visual inspection Respiratory: normal respiratory effort Auscultation: + diminished lung sounds Cardiovascular: RRR, no murmur, no edema Gastrointestinal (Abdomen): normal bowel sounds, soft, nontender, no hepatosplenomegaly Musculoskeletal: Extremities: + extremities abnormal to inspection (Above knee amputation bilaterally) Skin: + turgor decreased and + wound (sacral ulcers, intertrigo beneath breasts, pannus wounds) Neurologic: PERRL, EOMI, accommodation nl, no face palsy, no dysarthria Psychiatric: Orientation: lethargic; + not oriented x 3, Results & Data Vital Signs (Past 12 Hours) Vital Signs Temp Pulse Pulse Pulse Resp BP BP 07/19/19 22:32 36.5 C 78 18 133/74 07/19/19 20:07 65 136/64 07/19/19 18:32 36.5 C 64 16 132/70 07/19/19 17:55 36.7 C 68 124/61 07/19/19 17:40 60 100/45 L 07/19/19 17:20 54 L 106/44 L 07/19/19 17:00 59 L 106/49 L 07/19/19 16:40 61 124/40 L 07/19/19 16:20 64 113/43 L 07/19/19 16:00 65 130/45 L 07/19/19 15:40 62 126/49 L 07/19/19 15:20 65 139/45 L 07/19/19 15:00 59 L 115/57 L 07/19/19 14:40 56 L 98/45 L 07/19/19 14:08 36.7 C 62 Pulse Ox 07/19/19 22:32 97 07/19/19 20:07 07/19/19 18:32 93 07/19/19 17:55 07/19/19 17:40 07/19/19 17:20 07/19/19 17:00 07/19/19 16:40 07/19/19 16:20 07/19/19 16:00 07/19/19 15:40 07/19/19 15:20 07/19/19 15:00 07/19/19 14:40 07/19/19 14:08 PG Care Time/CCT Total # of Minutes Spent Total Time Spent with Patient: Total time spent is greater than 50% in coordi nation of care (as documented) at patient's floor/unit and/or counseling patient:
[2019-07-20] MEDS: methylPREDNISolone 40 MG in SYRINGE 0 ML IV SCH ×2 (01:05→13:50)
[2019-07-20] MEDS: AMLODIPINE BESYLATE 5 MG TAB PO SCH (09:02)
[2019-07-20] MEDS: GABAPENTIN 300 MG CAP PO SCH (09:02)
[2019-07-20] MEDS: levETIRAcetam 500 MG TAB PO SCH (09:03)
[2019-07-20] MEDS: METOPROLOL TARTRATE 50 MG TAB PO SCH ×2 (09:03→20:16)
[2019-07-20] MEDS: FLUOXETINE HCL 20 MG CAP PO SCH (09:03)
[2019-07-20] MEDS: ANASTROZOLE 1 MG TAB PO SCH (09:03)
[2019-07-20] MEDS: INSULIN ASPART 100 UNITS/ML 3 ML PEN SC SCH ×4 (09:04→20:16)
[2019-07-20] MEDS: INSULIN GLARGINE SOLOSTAR 100 UNITS/ML 3 ML PEN SC SCH ×2 (09:04→20:17)
[2019-07-20] MEDS: VITAMIN B COMPLEX TAB PO SCH (09:06)
--- NOTE | 2019-07-20 12:49 | Nephrology Progress Note ---
Date of Service July 20, 2019 Assessment & Plan (1) ESRD (end stage renal disease): 58-year-old female with end-stage renal disease in the setting of obesity, hypertension, diabetes. Outpatient Rx MWF 3h 45m. Qb 450 via AVF. Qd 800. 2K bath. EDW 95 kg. Admitted to the hospital with change in mental status. This is her 2nd admission. There was concern whether she is having ongoing seizure activity however was seen by Neurology during the last admission and it was thought to be related to either of Bem Captopril and Gabapentin. The dose was decreased during last admission. She does have history of seizure disorder and currently she is continuing on the lower dose of Keppra and gabapentin. --had dialysis yesterday, currently electrolyte, volume status, blood pressure acceptable. --next dialysis Monday at the outpatient unit if she gets discharged over the weekend -- Given her multiple admissions and declining functional status, a serious consideration regarding her ability to safely return home under her 's care needs to be addressed. Eventually she may need long-term care facility placement. Will follow up (2) HTN (hypertension): (3) Seizure disorder: (4) DM2 (diabetes mellitus, type 2): Wade Jorgensen was seen and examined in her room this morning. Had dialysis yesterday currently electrolyte, blood pressure, volume status acceptable. She denies any shortness of breath or chest pain. She feels like she is at her baseline and just wants to go home. Review of Systems Review of Systems: All systems reviewed & are unremarkable except as noted in HPI & below Physical Exam Constitutional: well developed and well nourished; no acute distress Respiratory: normal respiratory effort, lungs clear to auscultation Cardiovascular: RRR, no murmur, no edema Neurologic: moves all extremities and awake; not confused Psychiatric: A+Ox3, euthymic affect Results & Data Vital Signs (Past 12 Hours) Vital Signs Temp Pulse Resp BP Pulse Ox 07/20/19 07:23 36.4 C L 71 15 147/71 H 94 PG Care Time/CCT Total # of Minutes Spent Total Time Spent with Patient: Total time spent is greater than 50% in coordination of care (as documented) at patient's floor/unit and/or counseling patient:
[2019-07-20] MEDS: CEFEPIME 500 MG in SYRINGE 0 ML IV SCH (13:50)
[2019-07-20 14:52] LABS: Hematocrit (blood only) 31.4 % (37-47); Hemoglobin 9.7 g/dL (12.0-16.0); Immature Granulocytes # (auto) 0.04 K/uL (0.00-0.02); Immature Granulocytes % (auto) 0.4 %; Lymphocytes # (auto) 0.72 K/uL (1.2-3.4); Lymphocytes % (auto) 6.6 %; Mean Corpuscular Hemoglobin 27.8 pg (25-34); Mean Corpuscular Hgb Conc 30.9 g/dL (32-36); Mean Platelet Volume 8.8 fL (7.4-10.4); Monocytes # (auto) 0.44 K/uL (0.11-0.59); Monocytes % (auto) 4.1 %; Neutrophils # (auto) 9.66 K/uL (1.4-6.5); Neutrophils % (auto) 88.9 %; Platelet Count 265 K/uL (130-400); RDW Coefficient of Variation 14.9 % (11.5-14.5); RDW Standard Deviation 48.7 fL (36.4-46.3); Red Blood Count 3.49 M/uL (4.2-5.4); White Blood Count 10.86 K/uL (4.8-10.8)
[2019-07-20 15:09] LABS: Alanine Aminotransferase 22 U/L (12-78); Albumin Level 1.8 gm/dl (3.4-5.0); Aspartate Aminotransferase 28 U/L (15-37); BUN Creatinine Ratio 6.6 (10-20); Blood Urea Nitrogen 20 mg/dl (7-18); Calcium 8.5 mg/dl (8.5-10.1); Carbon Dioxide 26 mmol/L (21-32); Chloride 104 mmol/L (98-107); Est GFR (African American) 18.7; Est GFR (Non-African American) 16.1; Glucose 189 mg/dl (70-99); Potassium 3.5 mmol/L (3.5-5.1); Sodium 137 mmol/L (136-145)
[2019-07-20 15:13] LABS: Albumin Globulin Ratio 0.4 (0.9-2); Alkaline Phosphatase 135 U/L (45-117); Bilirubin,Total 0.2 mg/dl (0.2-1); Globulin 4.3 gm/dl (2.5-4.0); Total Protein 6.1 gm/dl (6.4-8.2)
[2019-07-20 17:33] LABS: INR 5.1 (0.9-1.1); Prothrombin Time 46.6 Seconds (9.0-12.0)
[2019-07-20] MEDS: WARFARIN SOD 10 MG TAB PO SCH (18:17)
[2019-07-20] MEDS: ATORVASTATIN 20 MG TAB PO SCH (20:16)
--- NOTE | 2019-07-20 21:20 | Hospitalist Progress Note ---
Date of Service July 20, 2019 Assessment & Plan (1) Confusion: Patient is a 58yo F PMH ESRD on dialysis, HTN, T2DM, CAD, h/o DVTs, bilateral AKA, GERD, PUD, directly admitted from OSH for confusion. Confusion -Patient alert and oriented to place, person, not year -concern that this may be secondary to CO2 retention, obstructive sleep apnea. -will place neurology consult for further input -will order pulse oximetry test overnight -Possible this is related to oxycodone use; she states she does not take a lot of this; some toxic encephalopathy and need for dialysis -Monitor overnight; -her body habitus points towards likely obesity hypoventilatory syndrome. ESRD -Dialysis MWF; has not missed sessions since prev discharge -Consult nephro; appreciate recs T2DM -A1c 07/08 of 5.7 -ISS, BSG ACHS Seizure d/o -Meds adjusted after discharge on 07/13 -Keppra 1000 daily, 250mg post dialysis -Gabapentin 300mg qAM, 100mg after dialysis HTN -Cont norvasc and metoprolol H/o DVT -Cont daily coumadin h/o BRCA -Cont home med Sacral, breast, pannus wounds -Consult WOCN -Concern that may not have sufficient resources to care for pt at home -Will consult CM Code: Full per prev admission; pt unable to answer question at this time Dispo: admit to med/surg DVTP: cont warfarin (2) ESRD (end stage renal disease): (3) HTN (hypertension): (4) S/P bilateral above knee amputation: (5) Seizure disorder: (6) DM2 (diabetes mellitus, type 2): Subjective 58 yo male reports judith new complaints. She quickly falls back to sleep. Does not provide significant history. Did discuss with neprhology that patient would like to be discharged. I explained to patient that I am concered that may not be able to care for her as she has had multiple readmission and has a pressure ulcer. Review of Systems Review of Systems: All systems reviewed & are unremarkable except as noted in HPI & below Physical Exam Physical Exam: Constitutional: WD/WN, vitals as above + morbidly obese and + physical limitations Eyes: PERRL, conjunctivae normal, anicteric sclerae ENMT: external ear and nose normal, oropharynx normal Mouth: + oral mucosal abnormality (dry mucous membranes) Neck: normal visual inspection Respiratory: normal respiratory effort Auscultation: + diminished lung sounds Cardiovascular: RRR, no murmur, no edema Gastrointestinal (Abdomen): normal bowel sounds, soft, nontender, no hepatosplenomegaly Musculoskeletal: Extremities: + extremities abnormal to inspection (Above knee amputation bilaterally) Skin: + turgor decreased and + wound (sacral ulcers, intertrigo beneath breasts, pannus wounds) Neurologic: PERRL, EOMI, accommodation nl, no face palsy, no dysarthria Psychiatric: Orientation: awake, but falls asleep; + not oriented x 3, Results & Data Vital Signs (Past 12 Hours) Vital Signs Temp Pulse Resp BP Pulse Ox 07/20/19 15:13 36.9 C 62 16 105/62 95 PG Care Time/CCT Total # of Minutes Spent Total Time Spent with Patient: Total time spent is greater than 50% in coordination of care (as documented) at patient's floor/unit and/or counseling p atient:
[2019-07-21] MEDS: methylPREDNISolone 40 MG in SYRINGE 0 ML IV SCH ×2 (01:47→13:59)
--- NOTE | 2019-07-21 09:12 | Surgery Consultation ---
Date of Consultation July 21, 2019 Assessment & Plan (1) Recurrent pleural effusion on right: I discussed this with the primary service. This is a small effusion. It is also not layering out. I do not believe she is symptomatic from this. I would not expect any therapeutic response. In addition, she does not have signs and symptoms consistent with an empyema. I would follow along but I do not think that I would offer her an intervention for this at this point. Present on Admission?: Yes History of Present Illness Attending Physician: Frank Rice History of Present Illness Joslyn meier is a 58-year-old female with multiple medical problems including morbid obesity, seizure disorder, gastroesophageal reflux disease, end-stage renal disease, hypertension, and bilateral below-knee amputations secondary to apparent diabetic processes. She is also an active cigarette smoker. Patient presented with encephalopathic changes. She is much more awake now. CT scan of her chest was obtained and shows she has a small loculated effusion on the right. She is afebrile,. Her white count a week ago was normal. It was 13,780 when she came in 2 days ago. It is 10,[address] Rice asked if I would evaluate her CT scan and the patient determine whether or not a thoracentesis was indicated. Allergies Allergy/AdvReac Type Severity Reaction Status Date / Time Aminoglycosides Allergy Unknown Verified 07/08/19 22:17 ciprofloxacin Allergy Unknown Verified 07/08/19 22:17 doxycycline Allergy Unknown Verified 07/08/19 22:17 ertapenem Allergy Unknown Verified 07/08/19 22:17 gentamicin Allergy Unknown Verified 07/08/19 22:17 morphine Allergy Unknown Verified 07/08/19 22:17 quinacrine Allergy Unknown Verified 07/08/19 22:17 Quinolones Allergy Unknown Verified 07/08/19 22:17 Tetracyclines Allergy Unknown Verified 07/08/19 22:17 tramadol Allergy Unknown Verified 07/08/19 22:17 vancomycin AdvReac Unknown Unknown Verified 07/08/19 22:17 codeine AdvReac Unknown Verified 07/08/19 22:17 Home Medications Home Medications Medication Instructions Recorded Confirmed Type B complex 20-gpikc-B-biot-zinc 1 tab PO DAILY 07/08/19 07/20/19 History Dexilant 60 mg PO DAILY 07/08/19 07/19/19 History Dialyvite 1 tab PO DAILY 07/08/19 07/20/19 History Velphoro 500 mg PO DAILYBD 07/08/19 07/20/19 History amlodipine 5 mg PO DAILY 07/08/19 07/19/19 History anastrozole 1 mg PO DAILY 07/08/19 07/20/19 History atorvastatin [Lipitor] 20 mg PO HS 07/08/19 07/19/19 History fluoxetine 20 mg PO DAILY 07/08/19 07/20/19 History insulin lispro [Humalog U-100 See Rx Instructions .ROUTE .COMPLEX 07/08/19 07/20/19 History Insulin] levocetirizine 5 mg PO HS 07/08/19 07/20/19 History meclizine 12.5 mg PO Q6 07/08/19 07/20/19 History metoclopramide HCl 5 mg PO TID 07/08/19 07/20/19 History metoprolol tartrate 50 mg PO BID 07/08/19 07/20/19 History ondansetron 4 mg PO QID PRN 07/08/19 07/20/19 History oxycodone-acetaminophen 10 - 325 tab PO Q6 07/08/19 07/20/19 History warfarin [Coumadin] 10 mg PO DAILY 07/08/19 07/20/19 History gabapentin 100 mg PO .MWF 30 Days #30 cap 07/11/19 07/20/19 Rx gabapentin 300 mg PO QAM 30 Days #30 cap 07/11/19 07/20/19 Rx levetiracetam [Keppra] 1,000 mg PO QAM 30 Days #60 tab 07/11/19 07/20/19 Rx levetiracetam [Keppra] 250 mg PO MoWeFr@1400 30 Days #30 07/11/19 07/20/19 Rx tab nystatin [Nystop] 1 applic EXT QSHIFT PRN 10 Days 07/11/19 07/20/19 Rx #60 gm Patient History Medical History DM2 (diabetes mellitus, type 2) DVT (deep venous thrombosis) ESRD (end stage renal disease) GERD (gastroesophageal reflux disease) HTN (hypertension) Seizure disorder Surgical History S/P bilateral above knee amputation Social History Preferred Language: Welsh Communication Ability: Impaired 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 She does not feel that she has lost weight. She has felt fatigued however she denies fevers or chills. She has no myalgias or arthralgias. She denies a cough. She has no dyspnea but does not really exert herself. She denies palpitations or chest pain. She denies any obvious wound however she does have excoriations in her inframammary and inguinal areas. Is also been a question raised about a possible urinary tract infection. Physical Exam Physical Exam: Morbidly obese but awake and alert patient. She is just finished eating a regular breakfast. Her extraocular's are intact. Her sclera are anicteric. Her oral mucosa is moist. Tongue is midline. Her speech is normal. Neck was thick but supple. She does have scars in both infraclavicular areas. She has decreased breath sounds in both lung bases that are really noticed a big difference between the right and the left. She has a regular rate and rhythm of her heart. Her abdomen is obese. She has bilateral above-knee amputation sites. The wounds appear to be healed. Otherwise her neurologic exam is unremarkable with no obvious focal deficits. Results & Data Vital Signs (Past 12 Hours) Vital Signs Temp Pulse Pulse Pulse Resp BP Pulse Ox 07/21/19 07:57 36.3 C L 58 L 18 145/81 H 97 07/21/19 00:11 58 L 07/20/19 23:04 36.3 C L 57 L 16 119/69 96 07/20/19 21:48 58 L 07/20/19 21:41 60 Pulse Ox Pulse Ox 07/21/19 07:57 07/21/19 00:11 97 07/20/19 23:04 07/20/19 21:48 90 07/20/19 21:41 86 L PG Care Time/CCT Total # of Minutes Spent Total Time Spent with Patient: Total time spent is greater than 50% in coordination of care (as documented) at patient's floor/unit and/or counseling patient:
[2019-07-21] MEDS: NYSTATIN POWDER 15GM BTL EXT PRN (09:52)
[2019-07-21] MEDS: AMLODIPINE BESYLATE 5 MG TAB PO SCH (09:52)
[2019-07-21] MEDS: METOPROLOL TARTRATE 50 MG TAB PO SCH ×2 (09:53→20:47)
[2019-07-21] MEDS: levETIRAcetam 500 MG TAB PO SCH (09:53)
[2019-07-21] MEDS: FLUOXETINE HCL 20 MG CAP PO SCH (09:53)
[2019-07-21] MEDS: GABAPENTIN 300 MG CAP PO SCH (09:53)
[2019-07-21] MEDS: INSULIN ASPART 100 UNITS/ML 3 ML PEN SC SCH ×4 (09:53→20:43)
[2019-07-21] MEDS: ANASTROZOLE 1 MG TAB PO SCH (09:53)
[2019-07-21] MEDS: VITAMIN B COMPLEX TAB PO SCH (09:53)
[2019-07-21] MEDS: INSULIN GLARGINE SOLOSTAR 100 UNITS/ML 3 ML PEN SC SCH ×2 (09:55→20:44)
--- NOTE | 2019-07-21 10:35 | Neurology Consultation ---
Date of Consultation July 21, 2019 Assessment & Plan (1) Encephalopathy: Improved encephalopathy. Etiology likely multifactorial and related to chronic hypoxia, CO2 retention, possible anticonvulsant toxicity/level fluctuation further confounded by end-stage renal disease on hemodialysis. I would not reduce her dosage of Keppra further at this time. Would recommend checking levetiracetam and gabapentin levels, however. Patient may need further investigation into her respiratory status. Would also consider outpatient sleep medicine consultation with pulmonology. (2) Seizure disorder: Reported history of seizure disorder. Details are not really available although patient reports that she think she has had 1 convulsive episode, probably within the past 1 to 2 years. She is unable to relay any further specifics. She did have a staring episode, reported by nursing, yesterday. However, it sounds like she had intact ability to converse during this episode and did not exhibit any automatisms or more obvious convulsive activity. Partial complex seizures may not be excluded. Continue with levetiracetam at the current dosage. I do not think an EEG is necessary at this time. Patient may follow-up with Dr. Dallas for this issue as she evaluated her last month during her previous admission to [facility]. (3) Cerebral ventriculomegaly due to brain atrophy: Chronic ventriculomegaly, either hydrocephalus ex vacuo or possibly normal pressure hydrocephalus. I would not pursue a diagnosis of NPH in this patient, especially in light of her history of bilateral opnvq-zyx-hahs amputations. I am not really able to ascertain a history of chronic progressive magnetic type gait. She has been nonambulatory for many years, essentially bedbound. She does have some cognitive slowing which is likely multifactorial and could not be definitively attributed to ventricular enlargement. 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 If this diagnosis is to be pursued, I would recommend referring this patient to a tertiary center for neurosurgical evaluation. History of Present Illness Reason for Consultation: Altered mental status, history of seizure disorder Requesting Physician: Frank Rice Attending Physician: Frank Rice History of Present Illness The patient is a 58-year-old female who was transferred from [facility] for further evaluation of altered mental status. Past medical history notable for end-stage renal disease on dialysis, hypertension, diabetes mellitus, coronary artery disease, DVTs, and bilateral bviut-osk-phlo amputations. There is reported history of seizure disorder as well. In speaking with the patient, she reports 1 seizure episode occurring 1 to 2 years ago for which she is prescribed Keppra. The patient is not really able to provide further details regarding this particular problem. Further characterization of her reported history of seizure disorder is not available. The patient was seen by Dr. Dallas in neurological consultation during her admission to [facility] 2 weeks ago for altered mental status occurring in the context of hemodialysis. A brain MRI at that time reveals mild generalized atrophy with relatively enlarged lateral ventricles and periventricular white matter disease potentially suggestive of normal pressure hydrocephalus. Hydrocephalus ex vacuo also possible. I reviewed the images as well as the radiologist's interpretation of this test. In speaking with the patient further, it is rather difficult to obtain a history of potential clinical features that would otherwise suggest normal pressure hydrocephalus. She underwent bilateral seqem-ept-qubz amputation about 6 years ago, according to the patient due to complications related to diabetes. She does not recall having a magnetic type gait pattern but I would say the history in this regard is probably unreliable. She does deny experiencing any skyler urinary incontinence recently. She does admit to some mild difficulty with memory and concentration, of course this issue could be multifactorial, however. In reviewing Dr. Dallas's consultation from last month, it looks like her levetiracetam and gabapentin dosages were decreased with recommendations to give small additional doses with hemodialysis. In speaking with this patient's nurse at bedside this morning, it sounds like she had a brief staring episode yesterday but with intact ability to answer questions at that time. Nonetheless, she appeared to stare off into the room for a minute or so. This episode was not associated with eye blinking, lip smacking, or other automatisms. No associated or obvious convulsive activity was observed. There is also some concern for sleep apnea and CO2 retention and generally low O2 saturation/hypoxia as a potential contributor to her altered mental status. Obesity/hypoventilation syndrome may be a factor in her case as well. Family history patient denies a family history of epilepsy or seizure disorder in any first-degree family member. Allergies Allergy/AdvReac Type Severity Reaction Status Date / Time Aminoglycosides Allergy Unknown Verified 07/08/19 22:17 ciprofloxacin Allergy Unknown Verified 07/08/19 22:17 doxycycline Allergy Unknown Verified 07/08/19 22:17 ertapenem Allergy Unknown Verified 07/08/19 22:17 gentamicin Allergy Unknown Verified 07/08/19 22:17 morphine Allergy Unknown Verified 07/08/19 22:17 quinacrine Allergy Unknown Verified 07/08/19 22:17 Quinolones Allergy Unknown Verified 07/08/19 22:17 Tetracyclines Allergy Unknown Verified 07/08/19 22:17 tramadol Allergy Unknown Verified 07/08/19 22:17 vancomycin AdvReac Unknown Unknown Verified 07/08/19 22:17 codeine AdvReac Unknown Verified 07/08/19 22:17 Home Medications Home Medications Medication Instructions Recorded Confirmed Type B complex 41-afvku-E-biot-zinc 1 tab PO DAILY 07/08/19 07/20/19 History Dexilant 60 mg PO DAILY 07/08/19 07/19/19 History Dialyvite 1 tab PO DAILY 07/08/19 07/20/19 History Velphoro 500 mg PO DAILYBD 07/08/19 07/20/19 History amlodipine 5 mg PO DAILY 07/08/19 07/19/19 History anastrozole 1 mg PO DAILY 07/08/19 07/20/19 History atorvastatin [Lipitor] 20 mg PO HS 07/08/19 07/19/19 History fluoxetine 20 mg PO DAILY 07/08/19 07/20/19 History insulin lispro [Humalog U-100 See Rx Instructions .ROUTE .COMPLEX 07/08/19 07/20/19 History Insulin] levocetirizine 5 mg PO HS 07/08/19 07/20/19 History meclizine 12.5 mg PO Q6 07/08/19 07/20/19 History metoclopramide HCl 5 mg PO TID 07/08/19 07/20/19 History metoprolol tartrate 50 mg PO BID 07/08/19 07/20/19 History ondansetron 4 mg PO QID PRN 07/08/19 07/20/19 History oxycodone-acetaminophen 10 - 325 tab PO Q6 07/08/19 07/20/19 History warfarin [Coumadin] 10 mg PO DAILY 07/08/19 07/20/19 History gabapentin 100 mg PO .MWF 30 Days #30 cap 07/11/19 07/20/19 Rx gabapentin 300 mg PO QAM 30 Days #30 cap 07/11/19 07/20/19 Rx levetiracetam [Keppra] 1,000 mg PO QAM 30 Days #60 tab 07/11/19 07/20/19 Rx levetiracetam [Keppra] 250 mg PO MoWeFr@1400 30 Days #30 07/11/19 07/20/19 Rx tab nystatin [Nystop] 1 applic EXT QSHIFT PRN 10 Days 07/11/19 07/20/19 Rx #60 gm Patient History Medical History DM2 (diabetes mellitus, type 2) DVT (deep venous thrombosis) ESRD (end stage renal disease) GERD (gastroesophageal reflux disease) HTN (hypertension) Seizure disorder Surgical History S/P bilateral above knee amputation Social History Preferred Language: Citizen Of [place] Communication Ability: Impaired 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 Beliefs That Will Affect Care: None Current Living Situation: Spouse Current Living Situation Comment: home with spouse per EMT Feels Safe at Home: Yes Smoking Status: Current every day smoker Tobacco Type: cigarettes ; Cigarettes Per Day: 10 ; Tobacco Cessation Education Requested by Patient: No Hx Alcohol Use: No Hx Substance Use: No Review of Systems Constitutional: + fatigue; no fever and no chills Eyes: no blind spots and no diplopia Ear, Nose, Mouth, Throat: no tinnitus and no hearing loss Respiratory: + dyspnea Cardiovascular: no chest pain and no palpitations Gastrointestinal: no nausea and no vomiting Genitourinary: no urinary incontinence Musculoskeletal: no myalgia Integumentary: no rash and no lesions Neurologic: as per Subjective / HPI, + loss of sensation and + confusion; no headache(s) Psychiatric: no depression and no anxiety Hematologic / Lymphatic: no easy bleeding and no easy bruising Physical Exam Physical Exam: The patient is a well-developed, well-nourished elderly female. Bilateral bdutf-ose-cvsm amputations noted. She is alert and oriented to person, hospital, and day of the week. Recent and remote memory intact. Attention and concentration normal although processing speed reduced. Patient is able to name objects and repeat phrases. Patient exhibits a limited fund of knowledge regarding her past medical history but otherwise has intact comprehension of vocabulary. Visual neff full to confrontation. Visual acuity normal. Pupils equal round reactive to light and accommodation. Eye movements normal. The right globe does tend to deviate laterally. There is no nystagmus, ptosis, or ophthalmoplegia. Facial sensation intact. There is no facial droop or weakness. Hearing intact. Palate elevates to midline. Shoulder shrug intact. Tongue protrudes to midline. There is mildly diminished sensation to temperature and vibration for both upper limbs. Bilateral thisi-fih-zowr amputations noted. Patient does have intact sensation to light touch and temperature at both stumps. Deep tendon reflexes are diminished for the arms, unable to assess for the lower limbs. There is no dysdiadochokinesia or dysmetria tmhryc-ld-hgkj bilaterally. Again, cytb-fq-qtly cannot be assessed due to bilateral swoec-yjb-ysug amputations. Ophthalmoscopic examination reveals normal-appearing optic disks and posterior segments. No papilledema or hemorrhages. Carotid pulses normal bilaterally, no bruits to auscultation. Gait and station cannot be assessed. Patient is nonambulatory at baseline. Patient exhibits normal muscle strength and tone for the upper limbs. However, she does have some decreased field care advocate strength bilaterally, more so on the right with some associated atrophy of the intrinsic hand muscles, right greater than left. Muscle tone normal throughout. No abnormal movements observed. There is notable atrophy of the first dorsal interosseous muscle and thenar eminence for the right hand. Results & Data Vital Signs (Past 12 Hours) Vital Signs Temp Pulse Pulse Resp BP Pulse Ox Pulse Ox 07/21/19 07:57 36.3 C L 58 L 18 145/81 H 97 07/21/19 00:11 58 L 97 07/20/19 23:04 36.3 C L 57 L 16 119/69 96 Laboratory Results WBC 10.86, hemoglobin 9.7, hematocrit 31.4, platelet count 265, sodium 137, potassium 3.5, BUN 20, creatinine 3.01, glucose 189, calcium 8.5, AST 28, ALT 22 ABG, pH 7.42, PCO2 52, PO2 66, bicarb 34 Diagnostic Findings Brain MRI completed July 09, 2019 reveals mild generalized atrophy with disproportionate ventricular enlargement potentially suggestive of normal pressure hydrocephalus. There is periventricular and subcortical white matter T2/flair hyperintensity suggestive of chronic small vessel ischemic change as well. I reviewed the images as well as the radiologist interpretation of this test. An electrocardiogram reveals a normal sinus rhythm, 73 bpm. An echocardiogram completed July 09, 2019 reveals normal left ventricular size and systolic function, ejection fraction 65 to 70%, no regional wall motion abnormalities.
--- NOTE | 2019-07-21 11:17 | Nephrology Progress Note ---
Date of Service July 21, 2019 Assessment & Plan (1) ESRD (end stage renal disease): 58-year-old female with end-stage renal disease in the setting of obesity, hypertension, diabetes. Outpatient Rx MWF 3h 45m. Qb 450 via AVF. Qd 800. 2K bath. EDW 95 kg. Admitted to the hospital with change in mental status. This is her 2nd admission. There was concern whether she is having ongoing seizure activity however was seen by Neurology during the last admission and it was thought to be related to either of Bem Captopril and Gabapentin. The dose was decreased during last admission. She does have history of seizure disorder and currently she is continuing on the lower dose of Keppra and gabapentin. Overall she has been asymptomatic, no further confusion or change in mental status. Had dialysis Monday, currently blood pressure, electrolyte and volume status acceptable. --next dialysis Monday at the outpatient unit if she gets discharged over the weekend --Given her multiple admissions and declining functional status, there is concern regarding her ability to safely return home under her 's care. However patient repeatedly states she just wants to go home and does not want to go to long-term care facility placement. Will follow up (2) HTN (hypertension): (3) Seizure disorder: (4) DM2 (diabetes mellitus, type 2): Wade Jorgensen was seen and examined in her room this morning. Had dialysis Monday, currently electrolyte, blood pressure, volume status acceptable. She denies any shortness of breath or chest pain. She feels like she is at her baseline and just wants to go home. Review of Systems Review of Systems: All systems reviewed & are unremarkable except as noted in HPI & below Physical Exam Constitutional: well developed and well nourished; no acute distress Respiratory: normal respiratory effort, lungs clear to auscultation Cardiovascular: RRR, no murmur, no edema Neurologic: moves all extremities and awake; not confused Psychiatric: A+Ox3, euthymic affect Results & Data Vital Signs (Past 12 Hours) Vital Signs Temp Pulse Pulse Resp BP Pulse Ox Pulse Ox 07/21/19 07:57 36.3 C L 58 L 18 145/81 H 97 07/21/19 00:11 58 L 97 PG Care Time/CCT Total # of Minutes Spent Total Time Spent with Patient: Total time spent is greater than 50% in coordination of care (as documented) at patient's floor/unit and/or counseling patient:
[2019-07-21 13:39] LABS: INR 4.8 (0.9-1.1); Prothrombin Time 44.1 Seconds (9.0-12.0)
[2019-07-21 13:41] LABS: Hematocrit (blood only) 32.8 % (37-47); Hemoglobin 10.2 g/dL (12.0-16.0); Mean Corpuscular Hemoglobin 28.1 pg (25-34); Mean Corpuscular Hgb Conc 31.1 g/dL (32-36); Mean Corpuscular Volume 90.4 fL (80-100); Mean Platelet Volume 8.8 fL (7.4-10.4); Platelet Count 321 K/uL (130-400); RDW Coefficient of Variation 14.9 % (11.5-14.5); Red Blood Count 3.63 M/uL (4.2-5.4); White Blood Count 11.85 K/uL (4.8-10.8)
[2019-07-21] MEDS: CEFEPIME 500 MG in SYRINGE 0 ML IV SCH (13:59)
[2019-07-21 14:08] LABS: BUN Creatinine Ratio 8.9 (10-20); Blood Urea Nitrogen 35 mg/dl (7-18); Calcium 8.9 mg/dl (8.5-10.1); Carbon Dioxide 30 mmol/L (21-32); Chloride 103 mmol/L (98-107); Est GFR (African American) 13.9; Glucose 221 mg/dl (70-99); Potassium 4.5 mmol/L (3.5-5.1); Sodium 138 mmol/L (136-145)
[2019-07-21] MEDS ORDERED: OXYCODONE/ACETAMINOPHEN 5mg/325mg TAB PO PRN (14:27)
[2019-07-21] MEDS: ATORVASTATIN 20 MG TAB PO SCH (20:46)
--- NOTE | 2019-07-21 21:53 | Hospitalist Progress Note ---
Date of Service July 21, 2019 Assessment & Plan (1) Confusion: Patient is a 58yo F PMH ESRD on dialysis, HTN, T2DM, CAD, h/o DVTs, bilateral AKA, GERD, PUD, directly admitted from OSH for confusion. Confusion -likely multifactorial. -Patient alert and oriented to place, person, not year -concern that this may be secondary to CO2 retention, obstructive sleep apnea. -She was placed on cefepime and steroids for possible lung infection (or undiagnosed copd exacerbation) as wbc and pro cornelia were elevated (pro cornelia though may be falsely elevated due to ESRD) -sadly no cultures were drawn prior to starting antibiotics. -cefepime was choosen as patient had recent admissions. -pulse oximetry test ordered, patient will likely need outpatient sleep study to qualify for BIPAP -Possible this is related to oxycodone use; she states she does not take a lot of this; some toxic encephalopathy and need for dialysis; -her body habitus points towards likely obesity hypoventilatory syndrome. -She was evaluated by thoracic surgery, does not feel she needs to have the pleural effusion tapped. Appreciate input from neurology. outpatient PFT would be beneficial. recommend to continue antibiotic for at least 5 days. ESRD -Dialysis MWF; has not missed sessions since prev discharge -Consult nephro; appreciate recs T2DM -A1c 07/08 of 5.7 -ISS, BSG ACHS Seizure d/o -Meds adjusted after discharge on 07/13 -Keppra 1000 daily, 250mg post dialysis -Gabapentin 300mg qAM, 100mg after dialysis HTN -Cont norvasc and metoprolol H/o DVT -Cont daily coumadin -INR supratherapuetic. will monitor. h/o BRCA -Cont home med Sacral, breast, pannus wounds -Consult WOCN -Concern that may not have sufficient resources to care for pt at home -Will consult CM Code: Full per prev admission; pt unable to answer question at this time Dispo: need to assure discharge home is safe, on monday, will need to have discussion with CM team, as it does not appear can take care of at home. DVTP: cont warfarin (2) ESRD (end stage renal disease): (3) HTN (hypertension): (4) S/P bilateral above knee amputation: (5) Seizure disorder: (6) DM2 (diabetes mellitus, type 2): (7) Pressure ulcer of sacral region, stage 2: POA as noted above. wound care consulted. appreciate input. Subjective Patient reports feeling well, wants to go home. Review of Systems Review of Systems: All systems reviewed & are unremarkable except as noted in HPI & below Physical Exam Physical Exam: Constitutional: WD/WN, vitals as above + morbidly obese and + physical limitations Eyes: PERRL, conjunctivae normal, anicteric sclerae ENMT: external ear and nose normal, oropharynx normal Mouth: + oral mucosal abnormality (dry mucous membranes) Neck: normal visual inspection Respiratory: normal respiratory effort, a\tachypnic Auscultation: + diminished lung sounds Cardiovascular: RRR, no murmur, no edema Gastrointestinal (Abdomen): normal bowel sounds, soft, nontender, no hepatosplenomegaly Musculoskeletal: Extremities: + extremities abnormal to inspection (Above knee amputation bilaterally) Skin: + turgor decreased and + wound (sacral ulcers, intertrigo beneath breasts, pannus wounds) Neurologic: PERRL, EOMI, accommodation nl, no face palsy, no dysarthria Psychiatric: Orientation: awake,; + not oriented x 3, Results & Data Vital Signs (Past 12 Hours) Vital Signs Temp Pulse Resp BP Pulse Ox 07/21/19 15:25 36.4 C L 61 18 127/66 96 PG Care Time/CCT Total # of Minutes Spent Total Time Spent with Patient: Total time spent is greater than 50% in coordination of care (as documented) at patient's floor/unit and/or counseling patient:
[2019-07-22] MEDS: methylPREDNISolone 40 MG in SYRINGE 0 ML IV SCH ×2 (01:28→16:28)
[2019-07-22] MEDS ORDERED: SODIUM CHLORIDE 0.9% 1000ML 1,000 ML IV PRN (07:00)
[2019-07-22] MEDS: METOPROLOL TARTRATE 50 MG TAB PO SCH ×2 (08:40→21:32)
[2019-07-22] MEDS: AMLODIPINE BESYLATE 5 MG TAB PO SCH (08:41)
[2019-07-22] MEDS: INSULIN GLARGINE SOLOSTAR 100 UNITS/ML 3 ML PEN SC SCH ×2 (10:26→21:32)
[2019-07-22] MEDS: INSULIN ASPART 100 UNITS/ML 3 ML PEN SC SCH ×4 (10:27→21:33)
[2019-07-22 10:34] LABS: INR 3.2 (0.9-1.1); Prothrombin Time 29.8 Seconds (9.0-12.0)
--- NOTE | 2019-07-22 11:43 | Nephrology Progress Note ---
Date of Service July 22, 2019 Assessment & Plan (1) ESRD (end stage renal disease): 58-year-old female w/ ESRD due to obesity, hypertension, diabetes. Dialyzes MWF at [facility] (3h 45m. Qb 450 via AVF. Qd 800. 2K bath. EDW 95 kg). Admitted w/ change in mental status. Has h/o seizure d/o. MS change may be related to Keppra, Gabapentin or Oxycodone therapy. Anticonvulsant doses have been adjusted by Neurology -- HD today according to outpatient orders. Orders have been entered into EMR and HD RN notified (2) HTN (hypertension): -- Currently BP is controlled. Continue Metoprolol and Amlodipine (3) Anemia: -- Will provide JON w/ HD (4) Seizure disorder: (5) DM2 (diabetes mellitus, type 2): Subjective Mrs. Lieberman was seen & examined in her hospital room this morning. She was awake and alert, sitting up in bed eating breakfast. Mrs. Lieberman voiced no medical concerns. Review of Systems Constitutional: no fever and no chills Eyes: no worsening vision and no problem reported Ear, Nose, Mouth, Throat: no problem reported Respiratory: no cough and no dyspnea Cardiovascular: no chest pain and no palpitations Gastrointestinal: no abdominal pain, no nausea, no vomiting and no diarr hea/loose stools Musculoskeletal: no back pain Integumentary: no rash Neurologic: no dizziness and no confusion Physical Exam Constitutional: not in distress (chronically ill appearing) Eyes: PERRL, conjunctivae normal, anicteric sclerae ENMT: external ear and nose normal, oropharynx normal Neck: trachea midline, no thyromegaly Respiratory: normal respiratory effort, lungs clear to auscultation Cardiovascular: Rate/Rhythm: regular rate and regular rhythm Extremities: + AV fistula (+ bruit) Gastrointestinal (Abdomen): normal bowel sounds, soft, nontender, no hepatosplenomegaly Skin: no rashes, warm and dry Neurologic: awake; not confused Results & Data Vital Signs (Past 12 Hours) Vital Signs Temp Pulse Resp BP Pulse Ox 07/22/19 07:00 36.4 C L 60 18 140/77 94 Laboratory Results Laboratory Tests 07/21/19 07/21/19 13:26 13:26 WBC 11.85 H Hgb 10.2 L Hct 32.8 L Plt Count 321 Sodium 138 Potassium 4.5 D Chloride 103 Carbon Dioxide 30 BUN 35 H D Creatinine 3.86 H D Glucose 221 H PG Care Time/CCT Total # of Minutes Spent Total Time Spent with Patient: Total time spent is greater than 50% in coordination of care (as documented) at patient's floor/unit and/or counseling patient:
[2019-07-22] MEDS ORDERED: CEFEPIME 1,000 MG in SYRINGE 0 ML IV SCH (12:00)
[2019-07-22 13:58] LABS: Basophils # (auto) 0.02 K/uL (0-0.2); Basophils % (auto) 0.2 %; Hematocrit (blood only) 32.2 % (37-47); Hemoglobin 9.9 g/dL (12.0-16.0); Immature Granulocytes % (auto) 0.8 %; Lymphocytes # (auto) 0.86 K/uL (1.2-3.4); Lymphocytes % (auto) 7.2 %; Mean Corpuscular Hemoglobin 27.7 pg (25-34); Mean Corpuscular Hgb Conc 30.7 g/dL (32-36); Mean Corpuscular Volume 89.9 fL (80-100); Mean Platelet Volume 8.5 fL (7.4-10.4); Monocytes # (auto) 0.73 K/uL (0.11-0.59); Monocytes % (auto) 6.1 %; Neutrophils % (auto) 85.7 %; Platelet Count 369 K/uL (130-400); RDW Coefficient of Variation 15.1 % (11.5-14.5); RDW Standard Deviation 49.4 fL (36.4-46.3); Red Blood Count 3.58 M/uL (4.2-5.4); White Blood Count 12.01 K/uL (4.8-10.8)
--- NOTE | 2019-07-22 16:05 | Hospitalist Progress Note ---
Date of Service July 22, 2019 Assessment & Plan (1) Confusion: multifactorial with ESRD,pneumonia, CO2 retention on ABG d/t likely sleep apnea/obesity hypoventilation, antiseizure medications, possibly complicated by cefepime and steroid use - sleep study with desaturation - wears 2L at baseline, will need sleep study outpatient -no narcotic use since admission - neurology consulted (2) Seizure disorder: -Meds adjusted after discharge on 07/13 -Keppra 1000 daily, 250mg post dialysis -Gabapentin 300mg qAM, 100mg after dialysis - will order gabapentin and keppra levels per neuro recommendation. Neuro does not recommend changing antiseizure medications at this point. Is unsure if change in mental status represents partial seizure activity - will order EEG (3) ESRD (end stage renal disease): M, W, F dialysis Nephro consulted (4) Pneumonia: CT chest with pleural effusions and small right infiltrate will discontinue cefepime and replace with po Augmentin, MRSA nares swab was negative Cefepime can have a side effect of neurotoxicity Continues to have moderately elevated white count however patient has been on steroids - will discontinue at this point, no wheezing on auscultation Thoracic surgery consulted - no need for thoracentesis for effusion at this time (5) HTN (hypertension): Continue Norvasc and metoprolol (6) S/P bilateral above knee amputation: (7) DM2 (diabetes mellitus, type 2): A1c 5.7 in June Continue ss, bsgs ac & hs (8) Pressure ulcer of sacral region, stage 2: POA, as well as excoriation under folds wound care consulted. (9) History of DVT (deep vein thrombosis): continue Warfarin Supra-therapuetic, now INR 3.2 Will restart warfarin tomorrow pending INR level at 5 mg - has been taking 10 mg at home Subjective Ms. Lieberman is alert and awake but having a difficult time staying focused as we talk. Nursing has also noticed that she looses focus and stares off at different points during conversation. She will follow commands but has to be redirected at times as she will lose focus and forget to continue the exercise. She denies any discomforts. ROS Constitutional: no chills, aches, sweats or fever Respiratory: no sob,cough, sputum, or wheezing Cardiac: no chest pain, palpitations, edema, orthopnea or lightheadedness GI: no abdominal pain, nausea, vomiting, diarrhea or constipation : no dysuria or hesitancy Extremities: no joint pain or weakness Skin: no rash All other systems reviewed and negative Physical Exam Physical Exam: General: no distress Eyes: normal inspection, PERLL Respiratory: chest non tender, clear to auscultation, normal breath sounds, no respiratory distress, no accessory muscle use Cardiac: regular rate and rhythm, no rub or gallop, no murmur, no edema, no jvd GI/: active bowel sounds, no abd pain or tenderness, soft, non distended Extremities: bilateral BKA, arm weak bilaterally Neuro/Psych: alert and oriented x 3 with difficulty concentrating or staying on task when given a command, able to be easilty redirected, CN II - XII intact though unable to hold arms up bilaterally for long, normal mood, flat affect Skin: normal color, dry, breakdown over sacrum Results & Data Vital Signs (Past 12 Hours) Vital Signs Temp Pulse Pulse Pulse Resp BP BP 07/22/19 15:40 58 L 118/59 L 07/22/19 15:20 60 112/58 L 07/22/19 15:00 60 88/47 L 07/22/19 14:40 59 L 139/55 L 07/22/19 14:25 36.9 C 62 07/22/19 07:00 36.4 C L 60 18 140/77 Pulse Ox 07/22/19 15:40 07/22/19 15:20 07/22/19 15:00 07/22/19 14:40 07/22/19 14:25 07/22/19 07:00 94 PG Care Time/CCT Total # of Minutes Spent Total Time Spent with Patient: Total time spent is greater than 50% in coordination of care (as documented) at patient's floor/unit and/or counseling patient:
[2019-07-22] MEDS ORDERED: AMOXICILLIN/CLAVULANATE 500 MG TAB PO SCH (18:00)
[2019-07-22] MEDS: FLUOXETINE HCL 20 MG CAP PO SCH (18:32)
[2019-07-22] MEDS: VITAMIN B COMPLEX TAB PO SCH (18:32)
[2019-07-22] MEDS: levETIRAcetam 500 MG TAB PO SCH (18:32)
[2019-07-22] MEDS: GABAPENTIN 300 MG CAP PO SCH (18:32)
[2019-07-22] MEDS: ANASTROZOLE 1 MG TAB PO SCH (18:32)
[2019-07-22] MEDS: GABAPENTIN 100 MG CAP PO SCH (18:33)
[2019-07-22] MEDS: levETIRAcetam 250 MG TAB PO SCH (18:33)
[2019-07-22] MEDS ORDERED: DOXYCYCLINE HYCLATE 100 MG CAP PO SCH (21:00)
[2019-07-22] MEDS: ATORVASTATIN 20 MG TAB PO SCH (21:32)
[2019-07-23 07:01] LABS: Hematocrit (blood only) 29.6 % (37-47); Hemoglobin 9.2 g/dL (12.0-16.0); Mean Corpuscular Hemoglobin 27.4 pg (25-34); Mean Corpuscular Hgb Conc 31.1 g/dL (32-36); Mean Corpuscular Volume 88.1 fL (80-100); Mean Platelet Volume 8.1 fL (7.4-10.4); Platelet Count 261 K/uL (130-400); RDW Standard Deviation 48.6 fL (36.4-46.3); Red Blood Count 3.36 M/uL (4.2-5.4); White Blood Count 9.05 K/uL (4.8-10.8)
[2019-07-23 07:12] LABS: Prothrombin Time 19.7 Seconds (9.0-12.0)
[2019-07-23 07:46] LABS: Alanine Aminotransferase 54 U/L (12-78); Albumin Level 2.1 gm/dl (3.4-5.0); Alkaline Phosphatase 117 U/L (45-117); Aspartate Aminotransferase 59 U/L (15-37); Bilirubin,Total 0.3 mg/dl (0.2-1); Blood Urea Nitrogen 30 mg/dl (7-18); Calcium 8.2 mg/dl (8.5-10.1); Carbon Dioxide 33 mmol/L (21-32); Chloride 97 mmol/L (98-107); Globulin 3.6 gm/dl (2.5-4.0); Glucose 46 mg/dl (70-99); Potassium 3.7 mmol/L (3.5-5.1); Sodium 133 mmol/L (136-145); Total Protein 5.7 gm/dl (6.4-8.2)
[2019-07-23] MEDS: DEXTROSE 50% 50 ML SYRINGE IV PRN ×2 (07:58→12:01)
[2019-07-23] MEDS: METOPROLOL TARTRATE 50 MG TAB PO SCH (08:37)
[2019-07-23] MEDS ORDERED: PHARMACY GLYCEMIC MGMT CONSULT PRN (08:37)
[2019-07-23] MEDS: AMLODIPINE BESYLATE 5 MG TAB PO SCH (08:37)
[2019-07-23] MEDS: ANASTROZOLE 1 MG TAB PO SCH (08:37)
[2019-07-23] MEDS: GABAPENTIN 300 MG CAP PO SCH (08:37)
[2019-07-23] MEDS: FLUOXETINE HCL 20 MG CAP PO SCH (08:37)
[2019-07-23] MEDS: levETIRAcetam 500 MG TAB PO SCH (08:37)
[2019-07-23] MEDS: VITAMIN B COMPLEX TAB PO SCH (08:38)
--- NOTE | 2019-07-23 08:40 | Electroencephalogram ---
EEG Procedure Note Date of Service July 23, 2019 Start / End Times Start Time: 731 End Time: 0752 Referring Physician Kenisha FORDE History 58-year-old with history of seizures and confusion Home Medication List Home Medications Medication Instructions Recorded Confirmed Type B complex [id number] 1 tab PO DAILY 07/08/19 07/20/19 History Dexilant 60 mg PO DAILY 07/08/19 07/19/19 History Dialyvite 1 tab PO DAILY 07/08/19 07/20/19 History Velphoro 500 mg PO DAILYBD 07/08/19 07/20/19 History amlodipine 5 mg PO DAILY 07/08/19 07/19/19 History anastrozole 1 mg PO DAILY 07/08/19 07/20/19 History atorvastatin [Lipitor] 20 mg PO HS 07/08/19 07/19/19 History fluoxetine 20 mg PO DAILY 07/08/19 07/20/19 History insulin lispro [Humalog U-100 See Rx Instructions .ROUTE .COMPLEX 07/08/19 07/20/19 History Insulin] levocetirizine 5 mg PO HS 07/08/19 07/20/19 History meclizine 12.5 mg PO Q6 07/08/19 07/20/19 History metoclopramide HCl 5 mg PO TID 07/08/19 07/20/19 History metoprolol tartrate 50 mg PO BID 07/08/19 07/20/19 History ondansetron 4 mg PO QID PRN 07/08/19 07/20/19 History oxycodone-acetaminophen 10 - 325 tab PO Q6 07/08/19 07/20/19 History warfarin [Coumadin] 10 mg PO DAILY 07/08/19 07/20/19 History gabapentin 100 mg PO .MWF 30 Days #30 cap 07/11/19 07/20/19 Rx gabapentin 300 mg PO QAM 30 Days #30 cap 07/11/19 07/20/19 Rx levetiracetam [Keppra] 1,000 mg PO QAM 30 Days #60 tab 07/11/19 07/20/19 Rx levetiracetam [Keppra] 250 mg PO MoWeFr@1400 30 Days #30 07/11/19 07/20/19 Rx tab nystatin [Nystop] 1 applic EXT QSHIFT PRN 10 Days 07/11/19 07/20/19 Rx #60 gm Inpatient Medication List Amlodipine Besylate (Norvasc) 5 mg PO DAILY [facility] Stop: 08/18/19 08:59 Last Admin: 07/22/19 08:41 Dose: Not Given Documented by: [id number] Admin: 07/21/19 09:52 Dose: 5 mg Documented by: [id number] Admin: 07/20/19 09:02 Dose: 5 mg Documented by: [id number] Admin: 07/19/19 09:10 Dose: 5 mg Documented by: [id number] Amoxicillin/Clavulanate Potassium (Augmentin 500mg) 1 tab PO Q24H [facility]; Protocol Stop: 07/29/19 17:59 Last Admin: 07/22/19 18:32 Dose: 1 tab Documented by: [id number] Anastrozole (Arimidex) 1 mg PO DAILY [facility] Stop: 08/18/19 08:59 Last Admin: 07/22/19 18:32 Dose: 1 mg Documented by: [id number] Cosigned by: [id number] Admin: 07/21/19 09:53 Dose: 1 mg Documented by: [id number] Cosigned by: [id number] Admin: 07/20/19 09:03 Dose: 1 mg Documented by: [id number] Cosigned by: [id number] Admin: 07/19/19 09:09 Dose: 1 mg Documented by: [id number] Cosigned by: [id number] Atorvastatin Calcium (Lipitor) 20 mg PO HS [facility] Stop: 08/18/19 20:59 Last Admin: 07/22/19 21:32 Dose: 20 mg Documented by: [id number] Admin: 07/21/19 20:46 Dose: 20 mg Documented by: [id number] Admin: 07/20/19 20:16 Dose: 20 mg Documented by: [id number] Admin: 07/19/19 20:04 Dose: 20 mg Documented by: [id number] Dextrose (Dextrose 50%) 25 - 50 ml IV UD PRN; Protocol PRN Reason: Hypoglycemia Protocol Stop: 08/17/19 23:47 Last Admin: 07/23/19 07:58 Dose: 50 ml Documented by: [id number] Fluoxetine HCl (Prozac) 20 mg PO DAILY [facility] Stop: 08/18/19 08:59 Last Admin: 07/22/19 18:32 Dose: 20 mg Documented by: [id number] Admin: 07/21/19 09:53 Dose: 20 mg Documented by: [id number] Admin: 07/20/19 09:03 Dose: 20 mg Documented by: [id number] Admin: 07/19/19 09:10 Dose: 20 mg Documented by: [id number] Gabapentin (Neurontin) 100 mg PO MoWeFr@1400 [facility] Stop: 08/18/19 13:59 Last Admin: 07/22/19 18:33 Dose: Not Given Documented by: [id number] Admin: 07/19/19 18:11 Dose: 100 mg Documented by: [id number] Gabapentin (Neurontin) 300 mg PO QAM [facility] Stop: 08/18/19 08:59 Last Admin: 07/22/19 18:32 Dose: 300 mg Documented by: [id number] Admin: 07/21/19 09:53 Dose: 300 mg Documented by: [id number] Admin: 07/20/19 09:02 Dose: 300 mg Documented by: [id number] Admin: 07/19/19 09:09 Dose: 300 mg Documented by: [id number] Insulin Aspart (Novolog Flexpen) 0 units SC ACHS [facility] Stop: 08/18/19 07:29 Last Admin: 07/22/19 21:33 Dose: Not Given Documented by: [id number] Cosigned by: [id number] Admin: 07/22/19 19:55 Dose: Not Given Documented by: [id number] Cosigned by: [id number] Admin: 07/22/19 13:31 Dose: 9 units Documented by: [id number] Cosigned by: [id number] Admin: 07/22/19 10:27 Dose: 6 units Documented by: [id number] Cosigned by: [id number] Admin: 07/21/19 20:43 Dose: Not Given Documented by: [id number] Cosigned by: [id number] Admin: 07/21/19 17:58 Dose: Not Given Documented by: [id number] Cosigned by: [id number] Admin: 07/21/19 13:59 Dose: 13 units Documented by: [id number] Cosigned by: [id number] Admin: 07/21/19 09:53 Dose: 7 units Documented by: [id number] Cosigned by: [id number] Admin: 07/20/19 20:16 Dose: 300 units Documented by: [id number] Cosigned by: [id number] Admin: 07/20/19 18:56 Dose: 3 units Documented by: [id number] Cosigned by: [id number] Admin: 07/20/19 13:49 Dose: 9 units Documented by: [id number] Cosigned by: [id number] Admin: 07/20/19 09:04 Dose: 7 units Documented by: [id number] Cosigned by: [id number] Admin: 07/19/19 20:46 Dose: 1 units Documented by: [id number] Cosigned by: [id number] Admin: 07/19/19 18:41 Dose: 2 units Documented by: [id number] Cosigned by: [id number] Admin: 07/19/19 13:18 Dose: Not Given Documented by: [id number] Cosigned by: [id number] Admin: 07/19/19 09:07 Dose: 1 units Documented by: [id number] Cosigned by: [id number] Levetiracetam (Keppra) 1,000 mg PO QAM [facility] Stop: 08/18/19 08:59 Last Admin: 07/22/19 18:32 Dose: 1,000 mg Documented by: [id number] Admin: 07/21/19 09:53 Dose: 1,000 mg Documented by: [id number] Admin: 07/20/19 09:03 Dose: 1,000 mg Documented by: [id number] Admin: 07/19/19 09:09 Dose: 1,000 mg Documented by: [id number] Levetiracetam (Keppra) 250 mg PO MoWeFr@1400 [facility] Stop: 08/18/19 13:59 Last Admin: 07/22/19 18:33 Dose: Not Given Documented by: [id number] Admin: 07/19/19 18:11 Dose: 250 mg Documented by: [id number] Metoprolol Tartrate (Lopressor) 50 mg PO BID [facility] Stop: 08/18/19 08:59 Last Admin: 07/22/19 21:32 Dose: 50 mg Documented by: [id number] Admin: 07/22/19 08:40 Dose: Not Given Documented by: [id number] Admin: 07/21/19 20:47 Dose: 50 mg Documented by: [id number] Admin: 07/21/19 09:53 Dose: 50 mg Documented by: [id number] Admin: 07/20/19 20:16 Dose: 50 mg Documented by: [id number] Admin: 07/20/19 09:03 Dose: 50 mg Documented by: [id number] Admin: 07/19/19 20:05 Dose: 50 mg Documented by: [id number] Admin: 07/19/19 09:11 Dose: 50 mg Documented by: [id number] Miscellaneous (Order Awaiting Action) 1 ea N/A QS [facility] Stop: 08/18/19 07:59 Last Admin: 07/22/19 23:51 Dose: Not Given Documented by: [id number] Admin: 07/22/19 16:27 Dose: Not Given Documented by: [id number] Admin: 07/22/19 08:40 Dose: Not Given Documented by: [id number] Admin: 07/21/19 23:28 Dose: Not Given Documented by: [id number] Admin: 07/21/19 17:47 Dose: Not Given Documented by: [id number] Admin: 07/21/19 09:55 Dose: Not Given Documented by: [id number] Admin: 07/20/19 22:09 Dose: Not Given Documented by: [id number] Admin: 07/20/19 18:18 Dose: Not Given Documented by: [id number] Admin: 07/20/19 09:03 Dose: Not Given Documented by: [id number] Admin: 07/20/19 01:04 Dose: Not Given Documented by: [id number] Admin: 07/19/19 18:12 Dose: Not Given Documented by: [id number] Admin: 07/19/19 09:08 Dose: Not Given Documented by: [id number] Nystatin (Mycostatin) 1 appln EXT QSHIFT PRN PRN Reason: rash Stop: 08/17/19 23:56 Last Admin: 07/21/19 09:52 Dose: 1 appln Documented by: [id number] Admin: 07/19/19 01:15 Dose: 1 appln Documented by: [id number] Vitamin B Complex (Vitamin B Complex) 1 tab PO DAILY [facility] Stop: 08/18/19 08:59 Last Admin: 07/22/19 18:32 Dose: 1 tab Documented by: [id number] Admin: 07/21/19 09:53 Dose: 1 tab Documented by: [id number] Admin: 07/20/19 09:06 Dose: 1 tab Documented by: [id number] Admin: 07/19/19 09:09 Dose: 1 tab Documented by: [id number] Discontinued Medications Cefepime HCl 500 mg/ Syringe 5.65 mls @ 5.5 mls/min IV Q24H [facility]; Protocol Stop: 07/27/19 11:59 Last Admin: 07/21/19 13:59 Dose: 5.5 mls/min Documented by: [id number] Admin: 07/20/19 13:50 Dose: 5.5 mls/min Documented by: [id number] Cefepime HCl 2,000 mg/ Syringe 20 mls @ 5.5 mls/min IV ONE ONE; Protocol Stop: 07/19/19 10:33 Last Admin: 07/19/19 11:59 Dose: 5.5 mls/min Documented by: [id number] Methylprednisolone 40 mg/ (Syringe) 0.64 mls @ 1.5 mls/min IV Q12H [facility] Stop: 08/18/19 13:59 Last Admin: 07/22/19 16:28 Dose: Not Given Documented by: [id number] Admin: 07/22/19 01:28 Dose: 1.5 mls/min Documented by: [id number] Admin: 07/21/19 13:59 Dose: 1.5 mls/min Documented by: [id number] Admin: 07/21/19 01:47 Dose: 1.5 mls/min Documented by: [id number] Admin: 07/20/19 13:50 Dose: 1.5 mls/min Documented by: [id number] Admin: 07/20/19 01:05 Dose: 1.5 mls/min Documented by: [id number] Admin: 07/19/19 14:56 Dose: 1.5 mls/min Documented by: [id number] Cefepime HCl 1,000 mg/ Syringe 11.3 mls @ 5.5 mls/min IV Q24H [facility]; Protocol Stop: 07/26/19 23:59 Last Admin: 07/22/19 16:28 Dose: Not Given Documented by: [id number] Insulin Glargine (Lantus Solostar Pen) 16 units SC BID [facility] Stop: 08/18/19 08:59 Last Admin: 07/22/19 21:32 Dose: 16 units Documented by: [id number] Cosigned by: [id number] Admin: 07/22/19 10:26 Dose: 16 units Documented by: [id number] Cosigned by: [id number] Admin: 07/21/19 20:44 Dose: 16 units Documented by: [id number] Cosigned by: [id number] Admin: 07/21/19 09:55 Dose: 16 units Documented by: [id number] Cosigned by: [id number] Admin: 07/20/19 20:17 Dose: 16 units Documented by: [id number] Cosigned by: [id number] Admin: 07/20/19 09:04 Dose: 16 units Documented by: [id number] Cosigned by: [id number] Admin: 07/19/19 20:45 Dose: 16 units Documented by: [id number] Cosigned by: [id number] Admin: 07/19/19 09:12 Dose: 16 units Documented by: [id number] Cosigned by: [id number] Miscellaneous (Patient's Height And/Or Weight Needed) 1 ea N/A Q2H [facility] Stop: 07/19/19 12:31 Last Admin: 07/19/19 14:56 Dose: Not Given Documented by: [id number] Admin: 07/19/19 14:55 Dose: 1 ea Documented by: [id number] Warfarin Sodium (Coumadin) 10 mg PO DAILY@1600 [facility] Stop: 08/18/19 15:59 Last Admin: 07/20/19 18:17 Dose: Not Given Documented by: [id number] Admin: 07/19/19 18:12 Dose: 10 mg Documented by: [id number] Description This is a 21 electrode EEG with a single channel dedicated to limited EKG. The electrodes were placed in accordance with the International 10-20 system. Interpretation The predominant background activity consists of an irregular 5-6 hertz Hz activity, of up to 100 mV in amplitude,seen symmetrically distributed in all head regions bilaterally. This activity does attenuate some with eye-opening and other alerting procedures. Additionally, the background activity had alternating high-amplitude generalized rhythms followed by less than a second of low amplitude rhythm, alternating randomly. Towards the middle to latter part of the recording I believe this represented drowsiness/light sleep. Photic stimulation was performed and elicited no change in the background activity , however, there was 1 episode of a single generalized spike in wave burst without clinical accompaniment. Hyperventilation was not performed. A moderate amount of muscle and movement artifact activity contaminated the recording but did not hinder interpretation to any significant degree. Throughout the waking portion of the recording, no focal abnormalities were seen. Med the drowsy/light sleep portion of recording, again, no focal abnormalities seen In summary, this EEG was abnormal. There is a moderate generalized dysrhythmia of the background which was persistent. In addition there was a single generalized spike and wave discharge which was potentially epileptogenic. Clinical Correlation The generalized slowing likely correlates to a mild to moderate encephalopathy which could be due to a wide variety of causes, including postictal. Clinical correlation is required. The spike and wave discharges potentially epileptogenic. [facility] EEG Procedure Codes Indication for Procedure (1) Seizure disorder: (2) Encephalopathy:
[2019-07-23] MEDS: INSULIN ASPART 100 UNITS/ML 3 ML PEN SC SCH ×3 (08:45→17:23)
[2019-07-23 08:59] LABS: Est GFR (African American) 23.4; Est GFR (Non-African American) 20.2
[2019-07-23] MEDS ORDERED: levETIRAcetam 500 MG TAB PO ONE (09:00)
[2019-07-23 09:08] LABS: Albumin Globulin Ratio 0.6 (0.9-2)
--- NOTE | 2019-07-23 11:55 | Nephrology Progress Note ---
Date of Service July 23, 2019 Assessment & Plan (1) ESRD (end stage renal disease): 58-year-old female w/ ESRD due to obesity, hypertension, diabetes. Dialyzes MWF at [facility] (3h 45m. Qb 450 via AVF. Qd 800. 2K bath. EDW 95 kg). Admitted w/ change in mental status. Has h/o seizure d/o. MS change may be related to Keppra, Gabapentin or Oxycodone therapy. Anticonvulsant doses have been adjusted by Neurology -- Volume status and electrolyte balance are acceptable. No acute indication for HD today (2) HTN (hypertension): -- Currently BP is controlled. Continue Metoprolol and Amlodipine (3) Anemia: -- Will provide JON w/ HD treatments (4) Seizure disorder: (5) DM2 (diabetes mellitus, type 2): Subjective Mrs. Lieberman was seen & examined in her hospital room this morning. She was dialyzed yesterday without complication. 1 L UF obtained. Mrs. Lieberman is alert and oriented to self this morning. She voices no medical concerns. Review of Systems Review of Systems: Unobtainable due to cognitive status Physical Exam Constitutional: not in distress (chronically ill appearing) Eyes: PERRL, conjunctivae normal, anicteric sclerae ENMT: external ear and nose normal, oropharynx normal Neck: trachea midline, no thyromegaly Respiratory: normal respiratory effort, lungs clear to auscultation Cardiovascular: Rate/Rhythm: regular rate and regular rhythm Extremities: + AV fistula (+ bruit) Gastrointestinal (Abdomen): normal bowel sounds, soft, nontender, no hepatosplenomegaly Skin: no rashes, warm and dry Neurologic: awake; not confused Results & Data Vital Signs (Past 12 Hours) Vital Signs Temp Pulse Resp BP Pulse Ox 07/23/19 07:14 36.6 C 57 L 18 125/70 97 Laboratory Results Laboratory Tests 07/23/19 07/23/19 07/23/19 06:53 06:53 08:14 WBC 9.05 Hgb 9.2 L Hct 29.6 L Plt Count 261 Sodium 133 L Potassium 3.7 D Chloride 97 L Carbon Dioxide 33 H BUN 30 H POC Glucose 216 H Albumin 2.1 L PG Care Time/CCT Total # of Minutes Spent Total Time Spent with Patient: Total time spent is greater than 50% in coordination of care (as documented) at patient's floor/unit and/or counseling patient:
--- NOTE | 2019-07-23 14:03 | Pharmacy Report ---
Glycemic Control Consultation - Date of Service July 23, 2019 - Scope Scope: Glycemic Pharmacist consulted by Kenisha Flower on 07/23/19 for glycemic control and to write orders per [facility] inpatient glycemic control protocol - Objective Weight: 96 kg Accuchecks BSG (last 24hrs): 07/22/19 07/22/19 07/23/19 18:31 21:19 06:53 Glucose 46 L* POC Glucose 109 H 77 07/23/19 07/23/19 07/23/19 08:14 11:48 11:49 Glucose POC Glucose 216 H 53 L* 60 L* 07/23/19 12:20 Glucose POC Glucose 145 H Laboratory Data (last 24hrs): 07/23/19 06:53 Potassium 3.7 D Carbon Dioxide 33 H Anion Gap 3.0 Creatinine 2.50 H D Est Cr Clr Drug Dosing Not Reportable - Recent Pertinent Medications Outpatient Anti-diabetic Regimen: * Humalog scale * A1c does not reflect actual control as dialysis patient The patient is currently receiving: * Basal insulin: Lantus 16 units every 12 hours * Correctional Insulin: Novolog Correction per scale ACHS Goal Range: Low 110 mg/dL - High 140 mg/dL Correction Factor: 25 mg/dL/unit * Prandial insulin: Per carb ratio of 1 unit per 8 grams CHO consumed Risk Factors for Insulin Resistance: * Infection: augmentin x 5 days * Diet: T2DM - Assessment & Plan Assessment & Plan: ASSESSMENT: * Ms Lieberman is a 58 y/o F with a PMH of ESRD on dialysis and type 2 diabetes who presents with confusion. Pharmacy was consulted to manage after hypoglycemic even this morning. Hypoglycemic event may be attributable to decrease CHO intake during hospitalization or Lantus dosing. * Patient typically received about 32 units/day of basal insulin (out of ~50 total units per day) representing a basal heavy regimen. Fastings trended downwards throughout hospital stay. * Once consulted, Lantus discontinued and scale for doses of 0, 8, and 16 placed on OCT for the evenings. Represents a 50-100% decrease in basal insulin. * Patient's POC was elevated this morning secondary to D50 push for hypoglycemic episode. Patient again had lower blood sugar at lunch which may have been attributable to Novolog administration when should have been held. As a result, Cf/Cr loosened and goal range increased. * Patient's A1c = 5.7% 07/09/19. * However, this result is likely somewhat unreliable in ESRD patients d/t interactions between the A1c analyzing technique and high levels of urea in ESRD, reduced RBC life span, iron deficiency anemia, and EPO administration. HbA1c > 7.5% in ESRD patient may overestimate the extent of hyperglycemia in ESRD patients. PLAN FOR INPATIENT GLYCEMIC CONTROL: * Basal insulin * Lantus 0-16 units SQ HS * Lantus 0 units if BSG less than 100 mg/dL * Lantus 8 units if BSG 100-140 mg/dL * Lantus 16 units if BSG greater than 140 mg/dL * Bolus insulin * NovoLog per scale ACHS or Q6hrs while NPO * Goal Range: Low 140 mg/dL - High 180 mg/dL * Correction Factor: 30 mg/dL/unit * Nutritional / Prandial insulin per carb ratio of 1 unit per 10 grams CHO consumed * Please note that the plan above was derived based on current level of insulin resistance and hospital stress. These recommendations are appropriate for i npatient admission only. Plan of care upon discharge will need to be reassessed to avoid potential outpatient hypo/hyperglycemia. Thank you.
[2019-07-23] MEDS ORDERED: WARFARIN SOD 5 MG TAB PO SCH (16:00)
[2019-07-23] MEDS ORDERED: PIPERACILLIN/TAZOBACTAM 3.375 GM in DEXTROSE 5% 100 ML IV SCH (16:57)
[2019-07-23] MEDS ORDERED: PIPERACILL/TAZOBAC CONSULT ACTIVE PRN (16:57)
--- NOTE | 2019-07-23 17:01 | XRay Report ---
XR chest 1V portable CLINICAL HISTORY: pneumonia dyspnea COMPARISON STUDY: 07/19/2019 FINDINGS: Slight progression of a small left basilar parenchymal infiltrate. Subtle improvement in in filtrative change right mid to lower lung. Diaphragms remain smooth. IMPRESSION: 1. Slightly progressive left basilar infiltrate.. 2. Slight improvement of a right mid to lower lung infiltrative process. The above report was generated using voice recognition software. It may contain grammatical, syntax or spelling errors. Electronically signed by: Mauro Salcido M.D. 07/23/2019 5:00 PM
--- NOTE | 2019-07-23 17:16 | Hospitalist Progress Note ---
Date of Service July 23, 2019 Assessment & Plan (1) Confusion: multifactorial with ESRD,pneumonia, CO2 retention on ABG d/t likely sleep apnea/obesity hypoventilation, antiseizure medications, possibly complicated by cefepime and steroid use Today she is more lethargic with hypoglycemia. Her blood pressures are low. ABG ph is 7.28, lactic acid and ammonia are wnl. A chest Xray shows slightly progressive left basilar infiltrate, slight improvement of a right mid to lower lung infiltrative process. - sleep study with desaturation - wears 2L at baseline, will need sleep study outpatient -no narcotic use since admission - neurology consulted (2) Seizure disorder: -Meds adjusted after discharge on 07/13 -Gabapentin 300mg qAM, 100mg after dialysis - will order gabapentin and keppra levels per neuro recommendation. - EEG was abnormal - discussed with Dr. Watts who recommended additional 500 mg of Keppra today and then increase Keppra to 1250 mg daily with the additional 250 mg on dialysis days (3) ESRD (end stage renal disease): M, W, F dialysis Nephro consulted (4) Pneumonia: CT chest with pleural effusions and small right infiltrate, repeat CXR 07/23 as above Discontinued cefepime for possible neurotoxicity and replaced with Zosyn, MRSA nares swab was negative WBCs resolved today with discontinuation of steroids Thoracic surgery consulted - no need for thoracentesis for effusion at this time (5) HTN (hypertension): Continue Norvasc and metoprolol (6) S/P bilateral above knee amputation: (7) DM2 (diabetes mellitus, type 2): today with hypoglycemia in the 40s and 50s A1c 5.7 in June pharmacy glycemic management (8) Pressure ulcer of sacral region, stage 2: POA, as well as excoriation under folds wound care consulted. (9) History of DVT (deep vein thrombosis): continue Warfarin INR 2.0 today Supervising Physician Co-Signing Physician Notes I supervised Kenisha Flower NP on this patient's care. I examined the patient today independently of her. I discussed the plan of care with her with the plan being as written in her note except for any following changes/exceptions: None. Ms. Lieberman was examined at approx. 5pm. She was lethargic, but opened her eyes to verbal stimulus and localized pain. She could not tell me more than her name, but did nod and shake her head to questions and was able to follow commands. She was able to wiggle her fingers on both hands and move both legs. At this point, it is unclear whether she is having seizures vs. medication reaction (still cefepime?) vs. infectious vs. other. We have increased Keppra per neurology's recs. We have transferred her to PCU for closer monitoring. We have stopped the cefepime and all sedating medications, and we have also gotten a set of labs. So far, labs look ok. Lactate normal. ABG pH shows acidosis; however, per phlebotomy this may accidentally be a vbg. They are attempting further abg at this time. Will closely monitor and have neurology see her in the morning and also see how HD improves her mental status. Subjective Ms. Lieberman is very lethargic today. Unable to participate in a ROS. She opens her eyes to her name but otherwise does not talk to me. Physical Exam Physical Exam: General: no distress Eyes: normal inspection, PERLL Respiratory: chest non tender, clear to auscultation, normal breath sounds, no respiratory distress, no accessory muscle use Cardiac: regular rate and rhythm, no rub or gallop, no murmur, no edema, no jvd GI/: active bowel sounds, no abd pain or tenderness, soft, non distended Extremities: normal range of motion, normal strength, non tender Neuro/Psych: lethargic Skin: normal color, dry Results & Data Vital Signs (Past 12 Hours) Vital Signs Temp Pulse Pulse Resp BP Pulse Ox 07/23/19 15:39 82/51 L 07/23/19 15:28 36.8 C 51 L 18 87/54 L 95 07/23/19 14:56 36.9 C 53 L 16 100/62 97 07/23/19 07:14 36.6 C 57 L 18 125/70 97 PG Care Time/CCT Total # of Minutes Spent Total Time Spent with Patient: Total time spent is greater than 50% in coordination of care (as documented) at patient's floor/unit and/or counseling patient:
[2019-07-23] MEDS ORDERED: PIPERACILLIN/TAZOBACTAM 4.5 GM in DEXTROSE 5% 100 ML IV ONE (17:30)
[2019-07-23] MEDS ORDERED: SODIUM CHLORIDE 0.9% 50 ML IV STA (19:23)
[2019-07-23] MEDS ORDERED: ALTEPLASE, RECOMBINANT 50 MG in EMPTY BAG 0 ML IV STA (19:27)
[2019-07-23 19:34] LABS: iSTAT Arterial Blood Gas HCO3 30 meg/L (19-24); iSTAT Arterial Blood Gas pCO2 > 115 mmHg (35-46); iSTAT Arterial Blood Gas pH 6.99 (7.35-7.45); iSTAT Arterial Blood Gas pO2 46 mmHg (80-95); iSTAT Carbon Dioxide 33 mEq/l (24-31); iSTAT FiO2 100 %; iSTAT Site L Radial
[2019-07-23] MEDS ORDERED: INSULIN GLARGINE SOLOSTAR 100 UNITS/ML 3 ML PEN SC SCH (21:00)
[2019-07-23] MEDS ORDERED: SODIUM CHLORIDE 0.9% 10ML FLUSH IV ONE (21:06)
[2019-07-23] MEDS ORDERED: SODIUM BICARB 8.4% INJ 50 MEQ/50 ML SYR IV ONE (21:06)
--- NOTE | 2019-07-23 22:36 | Death Summary ---
Date of Service July 23, 2019 Pronouncement Note Contributing Factors (1) Confusion: (2) Seizure disorder: (3) ESRD (end stage renal disease): (4) Pneumonia: (5) HTN (hypertension): (6) S/P bilateral above knee amputation: (7) DM2 (diabetes mellitus, type 2): (8) Pressure ulcer of sacral region, stage 2: (9) History of DVT (deep vein thrombosis): Summary Additional details: PRONOUNCEMENT NOTE - Date: 07/23/2019 Time: 1919 In short, I responded to a CODE BLUE and found the patient to be in a PEA rhythm. Multiple cycles of CPR with epinephrine and bicarb were given during the code. Patient remained in PEA the entire time and failed to achieve Rosc during the CODE BLUE. The code was eventually stopped by Dr. Li and I proceeded to pronounce the patient at 1919. Assessment: Upon assessment, the patient was found to be in a terminal state. Pupils were fixed and dilated without response. No palpable pulses appreciated. No spontaneous breaths noted. Heart sounds were absent. No response to painful stimuli. Time of : 1919 as pronounced by myself. Patient's primary service was present at the time of pronouncement and is aware. Pronouncement section of the Certificate was filled out and signed by myself. Cause of : Primary -cardiogenic shock Secondary -cardiac dysrhythmia Please feel free to contact me with any questions regarding the above-mentioned course. Additional Data Attending physician: Isaac Espinal MD
[2019-07-24] MEDS ORDERED: PIPERACILLIN/TAZOBACTAM 4.5 GM in DEXTROSE 5% 100 ML IV SCH (06:00)
[2019-07-24] MEDS ORDERED: EPOETIN ALFA 10,000 UNITS/ML VIAL IV ONE (07:00)
[2019-07-24] MEDS ORDERED: SODIUM CHLORIDE 0.9% 1000ML 1,000 ML IV PRN (07:00)
[2019-07-24] MEDS ORDERED: levETIRAcetam 250 MG TAB PO SCH (09:00)
--- NOTE | 2019-07-24 16:59 | Discharge Summary ---
Date of Service July 24, 2019 Admission HPI Per Admitting Provider Patient is a 58yo F PMH ESRD on dialysis, HTN, T2DM, CAD, h/o DVTs, bilateral AKA, GERD, PUD, directly admitted from OSH for confusion. Patient unable to provide history aside from the fact that her called EMS for no reason, and that she did not want to be transferred to [facility]. Patient recently admitted 07/08/19-07/13/19 at this facility for toxic encephalopathy. HPI otherwise provided by [facility] ER notes. did not present with pt to OSH or [facility]. Patient states she did take her pain medication earlier in the day and notes that it did cause her to be drowsy. At OSH she was noted to have dried feces on her inner thighs bilaterally as well as several seeping wounds on pannus, under breast, on coccyx. Pt still makes some urine, therefore a urine sample was obtained which revealed 3+ protein, 1+ bili, 2+leuk, neg nitrites, 3+ blood. She was given a dose of bactrim at OSH. Patient denies UTI symptoms today/recently. CXR at OSH revealed chronic pulmonary venous congestion, no evidence of consolidation. Significant labwork at OSH: WBC 14K, rapid flu negative, lactate 0.8, INR 2.45. Principal Diagnosis PEA arrest Discharge Exam Constitutional WD/WN, vitals as above well developed, well nourished, + morbidly obese and + physical limitations; no acute distress and not in distress (chronically ill appearing) Eyes PERRL, conjunctivae normal, anicteric sclerae + anicteric sclerae; no conjunctival abnormality ENMT external ear and nose normal, oropharynx normal Mouth: no oral mucosal abnormality and oral mucous membranes not dry Neck trachea midline, no thyromegaly normal visual inspection, trachea midline and + thick neck Respiratory normal respiratory effort, lungs clear to auscultation normal respiratory effort Auscultation: + diminished lung sounds and + rales Cardiovascular RRR, no murmur, no edema Rate/Rhythm: regular rate and regular rhythm Heart Sounds: normal S1, normal S2 and + murmur Vessels: no JVD Extremities: + AV fistula (+ bruit); no edema Gastrointestinal (Abdomen) normal bowel sounds, soft, nontender, no hepatosplenomegaly Percussion/Palpation: abdomen soft; abdomen nontender Musculoskeletal Extremities: + extremities abnormal to inspection (Above knee amputation bilaterally), no cyanosis and no clubbing Skin no rashes, warm and dry normal turgor, + turgor decreased and + wound (sacral ulcers, intertrigo beneath breasts, pannus wounds); no lesions Neurologic PERRL, EOMI, accommodation nl, no face palsy, no dysarthria moves all extremities and awake; not confused Motor/Sensory: no tremor and no asterixis Psychiatric A+Ox3, euthymic affect Orientation: alert and oriented x 3 Discharge Data Allergies Allergy/AdvReac Type Severity Reaction Status Date / Time Aminoglycosides Allergy Unknown Verified 07/08/19 22:17 ciprofloxacin Allergy Unknown Verified 07/08/19 22:17 doxycycline Allergy Unknown Verified 07/08/19 22:17 ertapenem Allergy Unknown Verified 07/08/19 22:17 gentamicin Allergy Unknown Verified 07/08/19 22:17 morphine Allergy Unknown Verified 07/08/19 22:17 quinacrine Allergy Unknown Verified 07/08/19 22:17 Quinolones Allergy Unknown Verified 07/08/19 22:17 Tetracyclines Allergy Unknown Verified 07/08/19 22:17 tramadol Allergy Unknown Verified 07/08/19 22:17 vancomycin AdvReac Unknown Unknown Verified 07/08/19 22:17 codeine AdvReac Unknown Verified 07/08/19 22:17 Consultations 07/18/19 23:48 Consult Nephrology Routine 07/19/19 00:56 Consult Case Management - Discharge Planning Routine 07/20/19 15:57 Consult Neurology Routine 07/21/19 07:53 Consult Thoracic Surgery Routine Ordered Studies 07/19/19 11:35 CT chest wo con Routine Hospital Course (1) : Patient went into PEA arrest at approx. 7pm on 07/23. Twenty minutes of CPR were performed, but without ROSC. Code was called and the patient was pronounced at 7:20pm. (2) Confusion: multifactorial with ESRD,pneumonia, CO2 retention on ABG d/t likely sleep apnea/obesity hypoventilation, antiseizure medications, possibly complicated by cefepime and steroid use Today she is more lethargic with hypoglycemia. Her blood pressures are low. ABG ph is 7.28, lactic acid and ammonia are wnl. A chest Xray shows slightly progressive left basilar infiltrate, slight improvement of a right mid to lower lung infiltrative process. - sleep study with desaturation - wears 2L at baseline, will need sleep study outpatient -no narcotic use since admission - neurology consulted (3) Seizure disorder: -Meds adjusted after discharge on 07/13 -Gabapentin 300mg qAM, 100mg after dialysis - will order gabapentin and keppra levels per neuro recommendation. - EEG was abnormal - discussed with Dr. Watts who recommended additional 500 mg of Keppra today and then increase Keppra to 1250 mg daily with the additional 250 mg on dialysis days (4) ESRD (end stage renal disease): M, W, F dialysis Nephro consulted (5) Pneumonia: CT chest with pleural effusions and small right infiltrate, repeat CXR 07/23 as above Discontinued cefepime for possible neurotoxicity and replaced with Zosyn, MRSA nares swab was negative WBCs resolved today with discontinuation of steroids Thoracic surgery consulted - no need for thoracentesis for effusion at this time (6) HTN (hypertension): Continue Norvasc and metoprolol (7) S/P bilateral above knee amputation: (8) DM2 (diabetes mellitus, type 2): today with hypoglycemia in the 40s and 50s A1c 5.7 in June pharmacy glycemic management (9) Pressure ulcer of sacral region, stage 2: POA, as well as excoriation under folds wound care consulted. (10) History of DVT (deep vein thrombosis): continue Warfarin INR 2.0 today Total Time Total Time Spent Total Time Spent (In Minutes): 35 Discharge Plan Discharge Items Patient Disposition: Reason For Visit: ALTERED MENTAL STATUS,HYPOXIA Follow-up/Referrals: PCP,NO [Primary Care Provider] - Admission Data Admit Date/Time: 07/18/19 23:13 Other DC Date/Time DO NOT enter until pt leaves facility: 07/23/19 21:07
[2019-07-28 01:42] LABS: Gabapentin 15.1 mcg/mL; Levetiracetam Keppra 34.9 mcg/mL (12.0-46.0)
--- NOTE | 2019-08-15 13:51 | Coding Query ---
CODING QUERY To promote full compliance with coding requirements relating to patient care, provider participation is requested in all cases of remote inpatient coder uncertainty. Please assist us with the question(s) below: Coding Question: Toxic Encephalopathy was documented in the PN as a possible cause to the patient's confusion until 07/22. Please clarify below if the patient had Toxic Encephalopathy. Thank you for your help! ( x) Toxic Encephalopathy, POA ( ) Confusion, cause unknown ( ) Other, explain Thank you! Betina Ramos Principal Diagnosis: "that condition established after study, to be chiefly responsible for occasioning the admission of the patient to the hospital for care." Co-Existing Principal Diagnosis: "when two or more diagnoses equally meet the criteria for principal diagnosis as determined by the circumstances of admission, diagnostic work up, and/or therapy provided, and the Alphabetic Index, Tabular List, or another coding guideline does not provide sequencing direction, any one of the diagnoses may be sequenced first." "When the physician has documented what appears to be a current diagnosis in the body of the record, but has not included the diagnosis in the final diagnostic statement, the physician should be asked whether the diagnosis should be added." (Source Coding [facility] 2 QTR90. p3-4) [facility]
== END 2019-07-23 21:07 | disposition expired | DRG 91 ==
LOC: SUATTDRO 23:13 → 4W 23:13 → 2E 07-23 16:43